=== PATIENT | female | born 1950 | race Caucasian/White ===

== ENCOUNTER 2017-09-05 13:23 | Emergency (ER) | payer OTHER, SELFPAY ==
[2017-09-05 13:55] LABS: #Basophils 0.1 thou/uL (0.0-0.2); #Eosinphils 0.4 thou/uL (0.0-0.7); #Lymphocytes 2.4 thou/uL (1.20-3.40); #Monocytes 0.8 thou/uL (0.11-0.59); #Neutrophils 6.5 thou/uL (1.40-6.50); %Basophils 0.8 % (0.0-1.0); %Eosinophils 4.2 % (0.0-10.0); %Lymphocytes 23.7 % (21.0-51.0); %Monocytes 7.6 % (0.0-10.0); %Neutrophils 63.7 % (42.0-75.0); Hemoglobin 13.5 g/dL (12.0-16.0); Mean Corpuscular Hemoglobin 29.2 pg (27.0-31.0); Mean Corpuscular Volume 83.5 fl (81.0-99.0); Mean Platelet Volume 7.8 fL (7.4-10.4); Platelet Count 293 thou/uL (130-400); RBC Distribution Width 13.1 % (11.5-14.5); Red Blood Cell (RBC) Count 4.63 mill/uL (4.20-5.40); White Blood Cell (WBC) Count 10.2 thou/uL (4.8-10.8)
[2017-09-05 14:02] LABS: INR-International Normal Ratio 1.1; PTT 29.2 SEC (22.9-36.1); Prothrombin Time 14.3 SEC (12.0-14.7)
[2017-09-05 14:17] LABS: ALT (SGPT) 11 U/L (8-55); AST (SGOT) 17 U/L (5-34); Alkaline Phosphatase 87 U/L (40-150); Anion Gap 15 mmol/L (10-20); BUN (Urea Nitrogen) 17 mg/dL (9.8-20.1); Bilirubin, Total 0.4 mg/dL (0.2-1.2); CK (CPK) 49 U/L (29-168); Calc. Creatinine Clearance 0 mL/min (70-130); Calcium 9.6 mg/dL (7.8-10.44); Carbon Dioxide 25 mmol/L (23-31); Chloride 102 mmol/L (98-107); Estimated GFR-MDRD 65; Globulin 3.5 g/dL (2.4-3.5); Glucose 100 mg/dL (80-115); Potassium 3.9 mmol/L (3.5-5.1); Protein, Total 7.5 g/dL (6.0-8.3); Sodium 138 mmol/L (136-145)
[2017-09-05 14:22] LABS: CKMB 0.6 ng/mL (0-6.6); Troponin I Less than 0.010 ng/mL (< 0.028)
--- NOTE | 2017-09-05 14:35 | RAD ---
CHEST ONE VIEW: History: Chest pain Comparison: 02-29-16 FINDINGS: There is a left basilar round opacity may reflect a sliding hernia. No pneumothorax. No effusion. Car diac silhouette and mediastinal contours are similar to the comparison exam. IMPRESSION: Left retrocardiac density may reflect a sliding hiatal hernia. This is similar to the comparison exam ination from 2015 and is not likely felt to be infectious in nature. Follow up two views of the chest may be beneficial. POS: [facility]
== END 2017-09-05 15:43 | disposition home or self-care (01) ==
LOC: ERS 13:23
DX: I48.91 Unspecified atrial fibrillation (principal); I10 Essential (primary) hypertension; E03.9 Hypothyroidism, unspecified; I25.10 Atherosclerotic heart disease of native coronary artery without angina pectoris; Z79.899 Other long term (current) drug therapy; Z79.82 Long term (current) use of aspirin
CPT/HCPCS: 36415; 71045; 80053; 82550; 82553; 83880; 84443; 84484; 85025; 85610; 85730; 93005

== ENCOUNTER 2017-09-10 07:23 | Emergency (ER) | payer SELFPAY ==
[2017-09-10 08:12] LABS: #Basophils 0.1 thou/uL (0.0-0.2); #Eosinphils 0.2 thou/uL (0.0-0.7); #Lymphocytes 1.7 thou/uL (1.20-3.40); #Monocytes 0.5 thou/uL (0.11-0.59); #Neutrophils 5.4 thou/uL (1.40-6.50); %Basophils 0.8 % (0.0-1.0); %Eosinophils 2.6 % (0.0-10.0); %Monocytes 6.1 % (0.0-10.0); %Neutrophils 68.6 % (42.0-75.0); Hemoglobin 13.7 g/dL (12.0-16.0); Mean Corpuscular HGB CONC 33.7 g/dL (32.0-36.0); Mean Corpuscular Hemoglobin 28.1 pg (27.0-31.0); Mean Corpuscular Volume 83.2 fl (81.0-99.0); Mean Platelet Volume 8.3 fL (7.4-10.4); Platelet Count 289 thou/uL (130-400); RBC Distribution Width 13.4 % (11.5-14.5); Red Blood Cell (RBC) Count 4.86 mill/uL (4.20-5.40); White Blood Cell (WBC) Count 7.8 thou/uL (4.8-10.8)
[2017-09-10 08:32] LABS: ALT (SGPT) 18 U/L (8-55); AST (SGOT) 22 U/L (5-34); Albumin 4.2 g/dL (3.4-4.8); Alkaline Phosphatase 75 U/L (40-150); Anion Gap 13 mmol/L (10-20); BUN (Urea Nitrogen) 19 mg/dL (9.8-20.1); Bilirubin, Total 0.8 mg/dL (0.2-1.2); Calc. Creatinine Clearance 0 mL/min (70-130); Calcium 9.5 mg/dL (7.8-10.44); Carbon Dioxide 26 mmol/L (23-31); Chloride 103 mmol/L (98-107); Estimated GFR-MDRD 61; Globulin 3.7 g/dL (2.4-3.5); Glucose 104 mg/dL (80-115); Potassium 3.8 mmol/L (3.5-5.1); Protein, Total 7.9 g/dL (6.0-8.3); Sodium 138 mmol/L (136-145)
--- NOTE | 2017-09-10 08:43 | RAD ---
AP CHEST: History: Generalized malaise and restlessness. Comparison: 09-05-17, 07-01-15 FINDINGS: Double density is seen involving the retrocardiac region is unchanged. Right lung is clear. Mild card iomegaly is stable. Vascular calcification of the aorta arch is similar. Osseous structures are uncha nged. IMPRESSION: Persistent left basilar retrocardiac density suspicious for a sliding hernia. Two view chest radiogra ph may be helpful to confirm this. No additional acute abnormality noted. There is stable cardiomegal y. POS: [facility]
[2017-09-10 08:46] LABS: CKMB 0.9 ng/mL (0-6.6); Troponin I Less than 0.010 ng/mL (< 0.028)
[2017-09-10 09:37] LABS: Bilirubin Negative (Negative); Blood, Urine Negative (Negative); Clarity CLEAR (Clear); Glucose, Urine (Dipstick) Negative (Negative); Leukocyte Negative (Negative); Nitrite Negative (Negative); Protein, Urine (Dipstick) Negative (Neg-Trace); Urobilinogen 0.2 mg/dL (0.2-1.0)
== END 2017-09-10 10:30 | disposition home or self-care (01) ==
LOC: ERS 07:23
DX: R53.1 Weakness (principal); K02.9 Dental caries, unspecified; E03.9 Hypothyroidism, unspecified; I10 Essential (primary) hypertension; I25.10 Atherosclerotic heart disease of native coronary artery without angina pectoris; I48.91 Unspecified atrial fibrillation; Z79.899 Other long term (current) drug therapy
CPT/HCPCS: 71045; 80053; 81003; 82553; 83880; 84484; 85025; 93005

== ENCOUNTER 2017-09-26 01:54 | Emergency (ER) | payer SELFPAY ==
[2017-09-26 02:40] LABS: #Basophils 0.1 thou/uL (0.0-0.2); #Eosinphils 0.4 thou/uL (0.0-0.7); #Lymphocytes 1.7 thou/uL (1.20-3.40); #Monocytes 0.7 thou/uL (0.11-0.59); #Neutrophils 6.4 thou/uL (1.40-6.50); %Basophils 0.9 % (0.0-1.0); %Lymphocytes 18.4 % (21.0-51.0); %Monocytes 7.8 % (0.0-10.0); %Neutrophils 68.9 % (42.0-75.0); Hemoglobin 12.8 g/dL (12.0-16.0); Mean Corpuscular HGB CONC 33.8 g/dL (32.0-36.0); Mean Corpuscular Hemoglobin 28.2 pg (27.0-31.0); Mean Corpuscular Volume 83.3 fl (81.0-99.0); Mean Platelet Volume 8.2 fL (7.4-10.4); Platelet Count 243 thou/uL (130-400); RBC Distribution Width 13.4 % (11.5-14.5); Red Blood Cell (RBC) Count 4.55 mill/uL (4.20-5.40); White Blood Cell (WBC) Count 9.3 thou/uL (4.8-10.8)
[2017-09-26] MEDS ORDERED: cloNIDine 0.1 MG TAB ONE (02:54)
[2017-09-26 03:01] LABS: ALT (SGPT) 11 U/L (8-55); AST (SGOT) 15 U/L (5-34); Albumin 3.9 g/dL (3.4-4.8); Alkaline Phosphatase 71 U/L (40-150); Anion Gap 10 mmol/L (10-20); BUN (Urea Nitrogen) 19 mg/dL (9.8-20.1); Bilirubin, Total 0.5 mg/dL (0.2-1.2); Calc. Creatinine Clearance 0 mL/min (70-130); Calcium 9.4 mg/dL (7.8-10.44); Carbon Dioxide 26 mmol/L (23-31); Chloride 106 mmol/L (98-107); Estimated GFR-MDRD 70; Globulin 3.1 g/dL (2.4-3.5); Glucose 105 mg/dL (80-115); Potassium 3.4 mmol/L (3.5-5.1); Sodium 139 mmol/L (136-145)
--- NOTE | 2017-09-28 16:00 | EKG ---
Test Reason : Blood Pressure : / mmHG Vent. Rate : 063 BPM Atrial Rate : 063 BPM P-R Int : 200 ms QRS Dur : 090 ms QT Int : 424 ms P-R-T Axes : 005 -09 -11 degrees QTc Int : 433 ms Normal sinus rhythm Minimal voltage criteria for LVH, may be normal variant Borderline ECG Confirmed by SARANYA BACK ([id number]), news videotape editor YURIDIA MAHAJAN ([id number]) on 09/28/2017 4:00:28 PM Referred By: Confirmed By:SARANYA BACK
== END 2017-09-26 03:40 | disposition home or self-care (01) ==
LOC: ERS 01:54
DX: I10 Essential (primary) hypertension (principal); E03.9 Hypothyroidism, unspecified; I25.10 Atherosclerotic heart disease of native coronary artery without angina pectoris; Z79.899 Other long term (current) drug therapy
CPT/HCPCS: 36415; 80053; 85025; 93005

== ENCOUNTER 2017-10-01 00:24 | Emergency (ER) | payer SELFPAY | END 2017-10-01 01:29 | disposition left against medical advice (07) | LOC: ERS 00:24 | DX: Z53.21 Procedure and treatment not carried out due to patient leaving prior to being seen by health care provider (principal) | CPT/HCPCS: 93005 ==

== ENCOUNTER 2017-10-16 22:33 | Observation (INO) | payer SELFPAY ==
[2017-10-16] MEDS ORDERED: hydrALAZINE 20 MG/ML VIAL ONE (22:46)
[2017-10-16] MEDS ORDERED: Nitroglycerin 2% Ointment 1 INCH/1 GM Packet ONE (22:46)
[2017-10-16 23:08] LABS: #Basophils 0.1 thou/uL (0.0-0.2); #Eosinphils 0.3 thou/uL (0.0-0.7); #Lymphocytes 2.3 thou/uL (1.20-3.40); #Monocytes 0.7 thou/uL (0.11-0.59); #Neutrophils 5.8 thou/uL (1.40-6.50); %Basophils 0.7 % (0.0-1.0); %Eosinophils 3.5 % (0.0-10.0); %Lymphocytes 25.2 % (21.0-51.0); %Monocytes 7.5 % (0.0-10.0); %Neutrophils 63.1 % (42.0-75.0); Hemoglobin 13.5 g/dL (12.0-16.0); Mean Corpuscular Hemoglobin 27.9 pg (27.0-31.0); Mean Corpuscular Volume 84.6 fl (81.0-99.0); Mean Platelet Volume 8.9 fL (7.4-10.4); Platelet Count 240 thou/uL (130-400); RBC Distribution Width 13.5 % (11.5-14.5); Red Blood Cell (RBC) Count 4.84 mill/uL (4.20-5.40); White Blood Cell (WBC) Count 9.3 thou/uL (4.8-10.8)
[2017-10-16 23:14] LABS: INR-International Normal Ratio 1.1; PTT 32.9 SEC (22.9-36.1); Prothrombin Time 14.4 SEC (12.0-14.7)
--- NOTE | 2017-10-16 23:16 | CT ---
HEAD CT WITHOUT CONTRAST: 10/16/17 HISTORY: Dizziness, hypertension. COMPARISON: None. TECHNIQUE: Noncontrast head CT is performed from skull base to skull vertex. FINDINGS: No parenchymal hemorrhage. No extra-axial hematoma. No midline shift. Basilar cisterns are patent. Br ain volume is age appropriate. Cortical hernandez-white matter differentiation is preserved. The ventricles and sulci are patent and symmetric. Minimal white matter hypodensities due to chronic small vessel ischemic change. The calvarium is intact. Adequate aeration of the sinuses and mastoid air cells. IMPRESSION: No acute intracranial process. POS: [facility]
[2017-10-16 23:27] LABS: ALT (SGPT) 12 U/L (8-55); AST (SGOT) 20 U/L (5-34); Albumin 4.3 g/dL (3.4-4.8); Alkaline Phosphatase 80 U/L (40-150); Anion Gap 12 mmol/L (10-20); BUN (Urea Nitrogen) 14 mg/dL (9.8-20.1); Bilirubin, Total 0.5 mg/dL (0.2-1.2); CK (CPK) 67 U/L (29-168); Calc. Creatinine Clearance 0 mL/min (70-130); Calcium 10.1 mg/dL (7.8-10.44); Carbon Dioxide 27 mmol/L (23-31); Chloride 106 mmol/L (98-107); Estimated GFR-MDRD 42; Globulin 3.3 g/dL (2.4-3.5); Glucose 98 mg/dL (80-115); Potassium 3.6 mmol/L (3.5-5.1); Protein, Total 7.6 g/dL (6.0-8.3); Sodium 141 mmol/L (136-145)
[2017-10-16] MEDS ORDERED: Lorazepam 2 MG/ML VIAL ONE (23:29)
[2017-10-16 23:30] LABS: CKMB 0.7 ng/mL (0-6.6); Troponin I Less than 0.010 ng/mL (< 0.028)
[2017-10-17] MEDS ORDERED: hydrALAZINE 20 MG/ML VIAL SLOW IVP PRN (01:11)
[2017-10-17] MEDS ORDERED: Ondansetron ODT 4 MG TAB SL PRN (01:12)
[2017-10-17] MEDS ORDERED: Acetaminophen 325 MG TAB PO PRN (01:12)
[2017-10-17] MEDS ORDERED: Ondansetron HCl/PF 4 MG/2 ML Vial IVP PRN (01:12)
[2017-10-17 01:50] VITALS: BMI 37.0
--- NOTE | 2017-10-17 02:00 | PDOC.FPRHP ---
- History of Present Illness Chief Complaint: high BP History of Present Illness: Patients states she was "feeling really good" today but then checked her blood pressure and noted it to be in the 180s systolic. This scared her and so she decided to lie down, a family member then stressed her out. She then re-checked her BP and noted it to still be in the 180s so she decided to come in for evaluation. Upon questioning she states she had occassional dizziness today but no other symptoms. No chest pain, shortness of breath, N/V/D. ED Course: Patient's BP in the ED was 223/ 106. Was given hydralazine, ativan, and nitro patch which improved the BP. CT head negative - Allergies/Adverse Reactions Allergies Allergy/AdvReac Type Severity Reaction Status Date / Time adhesive tape Allergy Verified 10/17/17 01:33 latex Allergy Verified 10/17/17 01:33 - Home Medications Medication Instructions Recorded Confirmed Type Flecainide [Tambocor] 75 mg PO BID 05/15/14 10/17/17 History Lisinopril/Hydrochlorothiazide 1 tab PO BID 05/15/14 10/17/17 History [Prinizide] Potassium Gluconate 99 mg PO DAILY 05/15/14 10/17/17 History Pravastatin Sodium [Pravachol] 40 mg PO HS 05/15/14 10/17/17 History Carvedilol [Coreg] 25 mg PO BID 02/29/16 10/17/17 History Thyroid,Pork [Nature-Throid] 105 mg PO QAM 02/29/16 10/17/17 History Apixaban [Eliquis] 5 mg PO BID 10/17/17 10/17/17 History Cholecalciferol (Vitamin D3) 8,000 units PO DAILY 10/17/17 10/17/17 History [[id number]] Cyanocobalamin (Vitamin B-12) 5,000 mcg PO DAILY 10/17/17 10/17/17 History [Vitamin B-12] - History PMHx: HTN, CAD, A fib s/p ablation PSHx: tubal ligation, ablation FHx: [place] in mom and dad in their 70s Social: smoked for 1 year in her 30s, no alcohol or drugs - Review of Systems General: denies: fever/chills, fatigue ENT: denies: nasal congestion, rhinorrhea Respiratory: denies: cough, shortness of breath Cardiovascular: denies: chest pain, palpitation, orthopnea Gastrointestinal: denies: nausea, vomiting, diarrhea Genitourinary: denies: incontinence, dysuria Skin: denies: rashes Neurological: denies: numbness, weakness - Vital signs BP: 223/106 HR: 60 RR: 24 Tmax: 98.0 Pox: 98% on RA Wt: 107kg - Physical Exam Constitutional: NAD, awake, alert and oriented HEENT: normocephalic and atraumatic, PERRLA Neck: supple Heart: RRR, normal S1/S2, pulses present, no edema Lungs: CTAB, no respiratory distress, good air movement Abdomen: soft, non-tender, bowel sounds present Musculoskeletal: normal structure, ROM grossly normal Neurological: no focal deficit Skin: no rash/lesions, capillary refill <2 seconds Psychiatric: normal mood and affect FMR H&P: Results - Labs Result Diagrams: 10/17/17 05:47 10/17/17 05:47 Lab results: WBC 9.3 thou/uL (4.8-10.8) 10/16/17 22:56 Hgb 13.5 g/dL (12.0-16.0) 10/16/17 22:56 Hct 40.9 % (36.0-47.0) 10/16/17 22:56 MCV 84.6 fl (81.0-99.0) 10/16/17 22:56 Plt Count 240 thou/uL (130-400) 10/16/17 22:56 Neutrophils % 63.1 % (42.0-75.0) 10/16/17 22:56 Sodium 141 mmol/L (136-145) 10/16/17 22:56 Potassium 3.6 mmol/L (3.5-5.1) 10/16/17 22:56 Chloride 106 mmol/L (98-107) 10/16/17 22:56 Carbon Dioxide 27 mmol/L (23-31) 10/16/17 22:56 BUN 14 mg/dL (9.8-20.1) 10/16/17 22:56 Creatinine 1.27 mg/dL (0.6-1.1) H 10/16/17 22:56 Glucose 98 mg/dL (80-115) 10/16/17 22:56 Calcium 10.1 mg/dL (7.8-10.44) 10/16/17 22:56 Total Bilirubin 0.5 mg/dL (0.2-1.2) 10/16/17 22:56 AST 20 U/L (5-34) 10/16/17 22:56 ALT 12 U/L (8-55) 10/16/17 22:56 Alkaline Phosphatase 80 U/L (40-150) 10/16/17 22:56 Creatine Kinase 67 U/L (29-168) 10/16/17 22:56 CK-MB (CK-2) 0.7 ng/mL (0-6.6) 10/16/17 22:56 Serum Total Protein 7.6 g/dL (6.0-8.3) 10/16/17 22:56 Albumin 4.3 g/dL (3.4-4.8) 10/16/17 22:56 FMR H&P: A/P - Problem List (1) HTN (hypertension) Status: Acute Code(s): I10 - ESSENTIAL (PRIMARY) HYPERTENSION Qualifiers: Hypertension type: essential hypertension Qualified Code(s): I10 - Essential (primary) hypertension Comment: Stable (2) Palpitations Status: Acute Code(s): R00.2 - PALPITATIONS Comment: No ectopy noted on telemetry - Plan # Hypertensive Urgency - restart home meds - Hydralazine PRN - EKG, trop WNL - CT head negative - monitor for light-headedness, weakness # Hx A fib - home eliquis - held flecanide - coreg # HLD - statin Dispo: < 48 hours FMR H&P: Upper Level - Pertinent history 66 yo F with PMH of HTN, chronic A fib presenting after noting her BP to be elevated at home. States she took all of her normal home BP medications today. Checked her BP a few times at home and noted it kept increasing, stating that her family was making her more anxious. Denies any CP, SOB, dizziness, WILSON, N/V , F/Ch, headaches, vision changes. - Pertinent findings PE: T: 97.6 P: 73 BP: 139/78 RR: 16 93% on RA Gen: [place] female in NAD HEENT: PERRL, EOMI, MMM, no lymphadenopathy or thyromegaly CV: RRR no murmurs, distal pulses intact Pulm: CTAB, no wheezes or rhonchi Abd: soft, NT/ND, BS present, no masses or distention Ext: no cyanosis or edema MSK: VILLEGAS well, no joint or muscle pain or swelling Neuro: CN 2-12 intact, normal sensation Skin: no rashes or lesions Psych: A&O x3, appropriate in conversation - Plan Date/Time: 10/17/17 0200 66 yo F here with elevated BP. 1) Hypertensive urgency: Observe on tele. BP normalized by time of my interview and exam, asymptomatic currently. Resume all home BP meds. 2) Chronic A. fib: Continue eliquis and BB, rate controlled currently. I, [Iván Diaz], have evaluated this patient and agree with findings/plan as outlined by technology internship resident. Pertinent changes/additions are listed here. Attending Addendum - Attending Addendum Date/Time: 10/17/17 1025 I personally evaluated the patient and discussed the management with Dr. Romeo. I agree with the History, Examination, Assessment and Plan documented above with any addition or exceptions noted below. The patient presented with hypertensive urgency. BP improved with hydralazine and restarting home meds. She is feeling much better and noted that her stress and anxiety contributed to elevated bp's. Will discharge home to follow-up with PCP.
[2017-10-17 06:16] LABS: #Basophils 0.1 thou/uL (0.0-0.2); #Eosinphils 0.3 thou/uL (0.0-0.7); #Lymphocytes 2.2 thou/uL (1.20-3.40); #Monocytes 0.7 thou/uL (0.11-0.59); #Neutrophils 5.8 thou/uL (1.40-6.50); %Basophils 0.9 % (0.0-1.0); %Eosinophils 3.1 % (0.0-10.0); %Lymphocytes 24.6 % (21.0-51.0); %Monocytes 7.4 % (0.0-10.0); Hemoglobin 13.1 g/dL (12.0-16.0); Mean Corpuscular Hemoglobin 27.5 pg (27.0-31.0); Mean Corpuscular Volume 83.5 fl (81.0-99.0); Mean Platelet Volume 8.8 fL (7.4-10.4); Platelet Count 247 thou/uL (130-400); RBC Distribution Width 13.5 % (11.5-14.5); Red Blood Cell (RBC) Count 4.75 mill/uL (4.20-5.40)
[2017-10-17 06:34] LABS: Anion Gap 13 mmol/L (10-20); BUN (Urea Nitrogen) 14 mg/dL (9.8-20.1); Calc. Creatinine Clearance 113 mL/min (70-130); Calcium 9.9 mg/dL (7.8-10.44); Carbon Dioxide 23 mmol/L (23-31); Chloride 107 mmol/L (98-107); Estimated GFR-MDRD 67; Glucose 97 mg/dL (80-115); Potassium 3.4 mmol/L (3.5-5.1); Sodium 140 mmol/L (136-145)
[2017-10-17] MEDS ORDERED: Carvedilol 25 MG TAB PO SCH (08:00)
[2017-10-17] MEDS ORDERED: Lisinopril/Hydrochlorothiazide 20 mg/12.5 mg Tablet PO SCH (09:00)
[2017-10-17] MEDS ORDERED: HYDROCHLOROTHIAZIDE PO SCH (09:00)
[2017-10-17] MEDS ORDERED: LISINOPRIL PO SCH (09:00)
[2017-10-17] MEDS ORDERED: Apixaban 5 MG TAB PO SCH (09:00)
[2017-10-17 11:55] VITALS: BP 132/61; TEMP 99.3
[2017-10-17] MEDS ORDERED: Pravastatin Sodium 40 MG TAB PO SCH (21:00)
== END 2017-10-17 12:17 | disposition home or self-care (01) ==
LOC: ERS 22:33 → 2SW 23:30
PROVIDERS: ADMIT Student in an Organized Health Care Education/Training Program; ATTEND Student in an Organized Health Care Education/Training Program
DX: I16.0 Hypertensive urgency (principal); I10 Essential (primary) hypertension; I25.10 Atherosclerotic heart disease of native coronary artery without angina pectoris; E78.5 Hyperlipidemia, unspecified; I48.2 Chronic atrial fibrillation; Z87.891 Personal history of nicotine dependence; Z79.01 Long term (current) use of anticoagulants; Z79.899 Other long term (current) drug therapy; Z91.040 Latex allergy status; Z91.048 Other nonmedicinal substance allergy status; Z98.890 Other specified postprocedural states
CPT/HCPCS: 36415; 70450; 80048; 80053; 82550; 82553; 84484; 85025; 85610; 85730; 93005; 96374; 96375; G0378; J0360; J2060; Q0162

== ENCOUNTER 2017-10-27 00:58 | Emergency (ER) | payer SELFPAY | END 2017-10-27 02:52 | disposition home or self-care (01) | LOC: ERS 00:58 | DX: I10 Essential (primary) hypertension (principal); E03.9 Hypothyroidism, unspecified; I25.10 Atherosclerotic heart disease of native coronary artery without angina pectoris; I48.91 Unspecified atrial fibrillation; Z87.891 Personal history of nicotine dependence; Z79.899 Other long term (current) drug therapy | CPT/HCPCS: 93005 ==

== ENCOUNTER 2017-10-30 22:34 | Emergency (ER) | payer SELFPAY | END 2017-10-30 22:46 | disposition left against medical advice (07) | LOC: ERS 22:34 | DX: Z53.21 Procedure and treatment not carried out due to patient leaving prior to being seen by health care provider (principal) ==

== ENCOUNTER 2018-01-20 21:54 | Emergency (ER) | payer MEDICARE, OTHER ==
[2018-01-20] MEDS ORDERED: Ondansetron HCl/PF 4 MG/2 ML Vial ONE (22:38)
[2018-01-20 23:24] LABS: #Eosinphils 0.3 thou/uL (0.0-0.7); #Lymphocytes 2.1 thou/uL (1.20-3.40); #Monocytes 0.8 thou/uL (0.11-0.59); %Basophils 0.4 % (0.0-1.0); %Eosinophils 3.1 % (0.0-10.0); %Lymphocytes 18.2 % (21.0-51.0); %Monocytes 6.9 % (0.0-10.0); %Neutrophils 71.4 % (42.0-75.0); Hemoglobin 13.4 g/dL (12.0-16.0); Mean Corpuscular HGB CONC 32.9 g/dL (32.0-36.0); Mean Corpuscular Hemoglobin 27.9 pg (27.0-31.0); Mean Corpuscular Volume 84.7 fL (78.0-98.0); Mean Platelet Volume 9.2 fL (7.4-10.4); Platelet Count 287 thou/uL (130-400); RBC Distribution Width 14.1 % (11.5-14.5); Red Blood Cell (RBC) Count 4.83 mill/uL (4.20-5.40); White Blood Cell (WBC) Count 11.2 thou/uL (4.8-10.8)
[2018-01-20 23:26] LABS: Bilirubin Negative (Negative); Blood, Urine Negative (Negative); Clarity CLEAR (Clear); Glucose, Urine (Dipstick) Negative (Negative); Leukocyte Trace (Negative); Nitrite Negative (Negative); Protein, Urine (Dipstick) Negative (Neg-Trace); Specific Gravity, Urine 1.005 (1.002-1.036); Urobilinogen 0.2 mg/dL (0.2-1.0); pH, Urine 7.5 (5.0-9.0)
[2018-01-20 23:27] LABS: Bacteria/HPF None Seen HPF (None Seen); Hyaline Casts/LPF 0-3 HYALINE CAST LPF (0-3 Hyaline); Pathc Cast-AUWi Flag 0.14 (0-2.49); RBC/HPF 0-3 HPF (0-3); Squamous Epithelial None Seen HPF (0-3); WBC/HPF 0-3 HPF (0-3)
[2018-01-20 23:44] LABS: ALT (SGPT) 11 U/L (8-55); AST (SGOT) 18 U/L (5-34); Albumin 4.2 g/dL (3.4-4.8); Alkaline Phosphatase 96 U/L (40-150); Anion Gap 12 mmol/L (10-20); BUN (Urea Nitrogen) 14 mg/dL (9.8-20.1); Bilirubin, Total 0.5 mg/dL (0.2-1.2); Calc. Creatinine Clearance 0 mL/min (70-130); Calcium 9.9 mg/dL (7.8-10.44); Carbon Dioxide 27 mmol/L (23-31); Chloride 104 mmol/L (98-107); Estimated GFR-MDRD 68; Globulin 3.5 g/dL (2.4-3.5); Glucose 107 mg/dL (80-115); Lipase 16 U/L (8-78); Potassium 3.5 mmol/L (3.5-5.1); Protein, Total 7.7 g/dL (6.0-8.3); Sodium 139 mmol/L (136-145)
[2018-01-20 23:49] LABS: CKMB 0.7 ng/mL (0-6.6); Troponin I Less than 0.010 ng/mL (< 0.028)
[2018-01-20] MEDS ORDERED: Meclizine HCl 25 MG TAB ONE (23:54)
--- NOTE | 2018-01-21 11:30 | CT ---
PRELIMINARY REPORT/[facility]/EMERGENTY AFTER-HOURS PROCEDURE CT Head Without Intravenous Contrast EXAM DATE/TIME: 01/20/2018 11:58 PM CLINICAL HISTORY: 67 years old, female; Signs and symptoms; Dizziness; Patient HX: Er 7; F67 reports to ed C/O dizzines s, with no WILSON, around 2100. Feels nauseas upon movement. BP meds and blood thinners. Denies cough, bl ack/bloody stools. HX hptn, heart ablation, fmhx heart problems. Nkda. TECHNIQUE: Axial computed tomography images of the head/brain without intravenous contrast. COMPARISON: No relevant prior studies available. FINDINGS: Brain: There is age-related diffuse cerebral and cerebellar volume loss and chronic microvascular isc hemic disease. Ventricles: Normal. No ventriculomegaly. Bones/joints: Normal. No acute fracture. Sinuses: Normal as visualized. No acute sinusitis. Mastoid air cells: Normal as visualized. No mastoid effusion. Soft tissues: Normal. IMPRESSION: 1. There is age-related diffuse cerebral and cerebellar volume loss and chronic microvascular ischemi c disease. 2. No acute intracranial pathology. Thank you for allowing us to participate in the care of your patient. Dictated and Authenticated by: César Wolff MD 01/21/2018 12:35 AM Central Time ([place] & [place]) HEAD CT WITHOUT CONTRAST: History: Vertigo. Dizziness. Comparison: 10-16-17 FINDINGS: This report is in agreement with the preliminary report by [facility]. Limited evaluation due to motion degr adation. No acute intracranial process. Age appropriate volume loss and chronic small vessel ischemic changes. POS: [facility]
== END 2018-01-21 01:13 | disposition home or self-care (01) ==
LOC: ERS 21:54
DX: R42 Dizziness and giddiness (principal); E03.9 Hypothyroidism, unspecified; I10 Essential (primary) hypertension; I25.10 Atherosclerotic heart disease of native coronary artery without angina pectoris; Z87.891 Personal history of nicotine dependence; Z79.899 Other long term (current) drug therapy
CPT/HCPCS: 70450; 80053; 81003; 81015; 82553; 83605; 83690; 84484; 85025; 93005; 96361; 96374; J2405

== ENCOUNTER 2018-08-16 20:28 | Emergency (ER) | payer MEDICARE, OTHER ==
[2018-08-16 20:51] LABS: #Basophils 0.1 thou/uL (0.0-0.2); #Eosinphils 0.3 thou/uL (0.0-0.7); #Lymphocytes 2.4 thou/uL (1.20-3.40); #Monocytes 0.7 thou/uL (0.11-0.59); #Neutrophils 6.9 thou/uL (1.40-6.50); %Basophils 0.9 % (0.0-1.0); %Monocytes 6.7 % (0.0-10.0); %Neutrophils 66.4 % (42.0-75.0); Mean Corpuscular HGB CONC 32.4 g/dL (32.0-36.0); Mean Corpuscular Hemoglobin 29.1 pg (27.0-31.0); Mean Corpuscular Volume 89.8 fL (78.0-98.0); Mean Platelet Volume 8.6 fL (7.4-10.4); Platelet Count 270 thou/uL (130-400); RBC Distribution Width 13.2 % (11.5-14.5); Red Blood Cell (RBC) Count 4.48 mill/uL (4.20-5.40); White Blood Cell (WBC) Count 10.4 thou/uL (4.8-10.8)
--- NOTE | 2018-08-16 21:04 | RAD ---
FRadiograph chest one view: 08/16/2018 at 8:48 PM HISTORY: 67-year-old female with chest pain and palpitations COMPARISON: 09/10/2017 FINDINGS: Moderately large retrocardiac mass centered to the left of midline. No pulmonary edema, focal infiltr ate, or pneumothorax. Lateral costophrenic angles are sharp. Borderline cardiomegaly. No interval tona nge. IMPRESSION: 1. Large retrocardiac mass may represent moderate to large hiatal hernia. 2. No acute pulmonary findings
[2018-08-16 21:11] LABS: ALT (SGPT) 12 U/L (8-55); AST (SGOT) 16 U/L (5-34); Albumin 4.1 g/dL (3.4-4.8); Alkaline Phosphatase 99 U/L (40-150); Anion Gap 10 mmol/L (10-20); BUN (Urea Nitrogen) 18 mg/dL (9.8-20.1); Bilirubin, Total 0.3 mg/dL (0.2-1.2); CK (CPK) 43 U/L (29-168); Calc. Creatinine Clearance 0 mL/min (70-130); Calcium 9.9 mg/dL (7.8-10.44); Carbon Dioxide 29 mmol/L (23-31); Chloride 105 mmol/L (98-107); Estimated GFR-MDRD 61; Globulin 3.4 g/dL (2.4-3.5); Glucose 120 mg/dL (80-115); Potassium 3.7 mmol/L (3.5-5.1); Protein, Total 7.5 g/dL (6.0-8.3); Sodium 140 mmol/L (136-145)
[2018-08-16] MEDS ORDERED: Ondansetron ODT 4 MG TAB ONE (21:50)
== END 2018-08-16 22:15 | disposition home or self-care (01) ==
LOC: ERS 20:28
DX: R00.2 Palpitations (principal); E03.9 Hypothyroidism, unspecified; I10 Essential (primary) hypertension; I25.10 Atherosclerotic heart disease of native coronary artery without angina pectoris; I48.91 Unspecified atrial fibrillation; Z87.891 Personal history of nicotine dependence; Z79.899 Other long term (current) drug therapy
CPT/HCPCS: 36415; 71045; 80053; 82550; 84484; 85025; 93005; Q0162

== ENCOUNTER 2018-08-20 12:15 | Emergency (ER) | payer MEDICARE, OTHER ==
--- NOTE | 2018-08-20 12:51 | RAD ---
EXAM: Portable chest PROVIDED CLINICAL HISTORY: Chest pain COMPARISON: 08/16/2018 FINDINGS: Cardiac and mediastinal silhouette is unchanged in appearance. No focal consolidation, pleural fluid or pneumothorax evident. IMPRESSION: No evidence for an acute cardiopulmonary process.
[2018-08-20 13:12] LABS: #Basophils 0.1 thou/uL (0.0-0.2); #Eosinphils 0.2 thou/uL (0.0-0.7); #Lymphocytes 2.3 thou/uL (1.20-3.40); #Monocytes 0.7 thou/uL (0.11-0.59); #Neutrophils 6.4 thou/uL (1.40-6.50); %Basophils 0.9 % (0.0-1.0); %Eosinophils 2.2 % (0.0-10.0); %Lymphocytes 23.8 % (21.0-51.0); %Monocytes 7.6 % (0.0-10.0); %Neutrophils 65.6 % (42.0-75.0); Hemoglobin 13.5 g/dL (12.0-16.0); Mean Corpuscular HGB CONC 32.9 g/dL (32.0-36.0); Mean Corpuscular Hemoglobin 28.6 pg (27.0-31.0); Mean Corpuscular Volume 86.7 fL (78.0-98.0); Mean Platelet Volume 8.7 fL (7.4-10.4); Platelet Count 301 thou/uL (130-400); RBC Distribution Width 12.9 % (11.5-14.5); Red Blood Cell (RBC) Count 4.73 mill/uL (4.20-5.40); White Blood Cell (WBC) Count 9.8 thou/uL (4.8-10.8)
[2018-08-20 13:32] LABS: ALT (SGPT) 10 U/L (8-55); AST (SGOT) 17 U/L (5-34); Albumin 4.3 g/dL (3.4-4.8); Alkaline Phosphatase 89 U/L (40-150); Anion Gap 14 mmol/L (10-20); BUN (Urea Nitrogen) 18 mg/dL (9.8-20.1); Bilirubin, Total 0.6 mg/dL (0.2-1.2); CK (CPK) 44 U/L (29-168); Calc. Creatinine Clearance 0 mL/min (70-130); Calcium 9.7 mg/dL (7.8-10.44); Carbon Dioxide 27 mmol/L (23-31); Chloride 103 mmol/L (98-107); Estimated GFR-MDRD 53; Globulin 3.2 g/dL (2.4-3.5); Glucose 91 mg/dL (80-115); Lipase 14 U/L (8-78); Potassium 3.9 mmol/L (3.5-5.1); Protein, Total 7.5 g/dL (6.0-8.3); Sodium 140 mmol/L (136-145)
--- NOTE | 2018-08-23 09:06 | EKG ---
Test Reason : Blood Pressure : / mmHG Vent. Rate : 069 BPM Atrial Rate : 069 BPM P-R Int : 194 ms QRS Dur : 086 ms QT Int : 424 ms P-R-T Axes : 045 -06 001 degrees QTc Int : 454 ms Normal sinus rhythm Normal ECG Confirmed by CHANEL HIGGINBOTHAM D.O. ([id number]), sports editor YURIDIA MAHAJAN ([id number]) on 08/23/2018 9:05:24 AM Referred By: Confirmed By:CHANEL HIGGINBOTHAM D.O.
== END 2018-08-20 15:32 | disposition home or self-care (01) ==
LOC: ERS 12:15
DX: R10.11 Right upper quadrant pain (principal); I25.10 Atherosclerotic heart disease of native coronary artery without angina pectoris; I48.91 Unspecified atrial fibrillation; E03.9 Hypothyroidism, unspecified; I10 Essential (primary) hypertension; Z87.891 Personal history of nicotine dependence; Z79.899 Other long term (current) drug therapy; Z79.01 Long term (current) use of anticoagulants
CPT/HCPCS: 36415; 71045; 80053; 82550; 83690; 84484; 85025; 93005

== ENCOUNTER 2018-09-02 09:51 | Outpatient (CLI) | payer MEDICARE, OTHER ==
--- NOTE | 2018-09-02 10:25 | ULT ---
Gallbladder ultrasound: Multiple grayscale images of right upper quadrant obtained according to protocol. INDICATIONS: Right upper quadrant pain. FINDINGS: Gallbladder has a normal sonographic appearance. No evidence of gallstones. Common bile duct is normal caliber. There is a hyperechoic lesion in the right lobe of liver measuring up to 2.0 cm. Pancreas is mostly obscured but appears unremarkable as visualized. Right kidney is imaged and appears unremarkable. IMPRESSION: 1. Hyperechoic focus in the liver. Possible hemangioma. Recommend CT abdomen with and without contras t following hemangioma protocol for characterization. 2. Unremarkable gallbladder
== END 2018-09-02 09:52 | disposition home or self-care (01) ==
LOC: SCSULT 09:51
PROVIDERS: ATTEND Family Medicine
DX: R10.84 Generalized abdominal pain (principal)
CPT/HCPCS: 76705

== ENCOUNTER 2018-10-03 11:10 | Emergency (ER) | payer MEDICARE, OTHER ==
[2018-10-03 12:24] LABS: #Eosinphils 0.2 thou/uL (0.0-0.7); #Monocytes 0.6 thou/uL (0.11-0.59); #Neutrophils 6.6 thou/uL (1.40-6.50); %Basophils 0.3 % (0.0-1.0); %Eosinophils 2.2 % (0.0-10.0); %Lymphocytes 20.8 % (21.0-51.0); %Monocytes 6.2 % (0.0-10.0); %Neutrophils 70.5 % (42.0-75.0); Hemoglobin 13.9 g/dL (12.0-16.0); Mean Corpuscular HGB CONC 33.7 g/dL (32.0-36.0); Mean Corpuscular Hemoglobin 29.2 pg (27.0-31.0); Mean Corpuscular Volume 86.6 fL (78.0-98.0); Mean Platelet Volume 8.5 fL (7.4-10.4); Platelet Count 269 thou/uL (130-400); RBC Distribution Width 12.7 % (11.5-14.5); Red Blood Cell (RBC) Count 4.77 mill/uL (4.20-5.40); White Blood Cell (WBC) Count 9.4 thou/uL (4.8-10.8)
[2018-10-03 13:00] LABS: ALT (SGPT) 11 U/L (8-55); AST (SGOT) 18 U/L (5-34); Albumin 4.3 g/dL (3.4-4.8); Alkaline Phosphatase 92 U/L (40-150); Anion Gap 13 mmol/L (10-20); BUN (Urea Nitrogen) 13 mg/dL (9.8-20.1); Bilirubin, Total 0.6 mg/dL (0.2-1.2); Calc. Creatinine Clearance 0 mL/min (70-130); Calcium 9.8 mg/dL (7.8-10.44); Carbon Dioxide 27 mmol/L (23-31); Chloride 103 mmol/L (98-107); Estimated GFR-MDRD 61; Globulin 3.5 g/dL (2.4-3.5); Glucose 87 mg/dL (80-115); Lipase 16 U/L (8-78); Magnesium 2.5 mg/dL (1.6-2.6); Potassium 3.7 mmol/L (3.5-5.1); Protein, Total 7.8 g/dL (6.0-8.3); Sodium 139 mmol/L (136-145)
--- NOTE | 2018-10-03 13:02 | RAD ---
CHEST 1 VIEW: HISTORY: Chest pain, right-sided pain for 1 month. COMPARISON: 08/20/2018. FINDINGS: Moderate-sized hiatal hernia. Heart size is borderline enlarged but stable. No confluent pneumonia, overt edema, or pleural effusion. IMPRESSION: Stable borderline-sized heart. Moderate-sized hiatal hernia. No acute intrathoracic disease. POS: [facility]
--- NOTE | 2018-10-03 13:33 | CT ---
CT abdomen and pelvis with IV contrast HISTORY: Abdominal pain. FINDINGS: The lung bases are clear. Calcified granulomata within the spleen are consistent with heale d granulomatous disease. Abdominal fat protrudes through a diaphragmatic hernia just to the left of the distal esophagus. Very small gastroesophageal hernia. Prominent calcification throughout the sunny rial structures. Circumaortic left renal vein. Prominent pelvises of each kidney. Obstruction is not favored. The nondilated, noninflamed appendix contains a small calcification. Urinary bladder is unremarkable. IMPRESSION: Atherosclerosis. No acute abnormalities are demonstrated.
[2018-10-03] MEDS ORDERED: ISOVUE-370 76%-LOCM 1 ML ONE (15:34)
== END 2018-10-03 14:18 | disposition home or self-care (01) ==
LOC: ERS 11:10
DX: R10.11 Right upper quadrant pain (principal); I25.10 Atherosclerotic heart disease of native coronary artery without angina pectoris; I10 Essential (primary) hypertension; I48.91 Unspecified atrial fibrillation; E03.9 Hypothyroidism, unspecified; Z87.891 Personal history of nicotine dependence; Z79.891 Long term (current) use of opiate analgesic; Z79.899 Other long term (current) drug therapy
CPT/HCPCS: 71045; 74177; 80053; 83690; 83735; 84484; 85025; 85379; Q9966

== ENCOUNTER 2018-10-07 08:05 | Outpatient (CLI) | payer MEDICARE, OTHER ==
[2018-10-07] MEDS ORDERED: Iopamidol 370 76% 100 ML VIAL ONE (09:00)
--- NOTE | 2018-10-07 10:48 | CT ---
CT OF ABDOMEN PERFORMED WITH AND WITHOUT CONTRAST ENHANCEMENT: HISTORY: Liver mass noted on ultrasound examination of 09/02/2018. COMPARISON: 09/02/2018 ultrasound examination and 10/03/2018 CT study. FINDINGS: The lung bases are clear. There is a small hiatal hernia present with prominent herniation of fat associated with this. The liver shows a small peripherally enhancing right lobe liver lesion measuring 15 mm in size. The current study per a liver mass protocol. There is no delayed imaging performed; however, this is oleg wing characteristics of a hemangioma. On the portal venous phase, additionally and some filling in a s compared to the arterial phase exam. Given this appearance and the appearance on ultrasound, this has characteristics most suggestive of hemangioma. The spleen, pancreas, and gallbladder regions obed ear unremarkable. Right and left adrenal glands are normal in appearance. Right and left kidneys are normal in size. Extrarenal pelvises are mildly prominent. There is no significant periaortic adenopathy. IMPRESSION: 1. A 15 mm right liver lobe liver mass showing characteristics most suggestive of a hemangioma given the ultrasound and CT findings. 2. Hiatal hernia with prominent fat also herniated in association with the small hernia of the stoma ch. POS: [facility]
== END 2018-10-07 08:06 | disposition home or self-care (01) ==
LOC: SCSCT 08:05
PROVIDERS: ATTEND Family Medicine
DX: R16.0 Hepatomegaly, not elsewhere classified (principal); R93.5 Abnormal findings on diagnostic imaging of other abdominal regions, including retroperitoneum; K44.9 Diaphragmatic hernia without obstruction or gangrene
CPT/HCPCS: 74170; Q9967

== ENCOUNTER 2018-12-01 08:57 | Inpatient (IN) | payer MEDICARE, OTHER ==
[2018-12-01] MEDS ORDERED: Aspirin Chewable 81 MG TAB ONE (09:24)
[2018-12-01] MEDS ORDERED: Lorazepam 2 MG/ML VIAL ONE (09:24)
--- NOTE | 2018-12-01 09:28 | RAD ---
RADIOGRAPH CHEST 1 VIEW: DATE: 12/01/2018 HISTORY: 68-year-old female with chest pain and atrial fibrillation. FINDINGS: The thoracic aorta is tortuous and ectatic. There is no evidence of airspace density, pulmonary edema , or pneumothorax. The lateral costophrenic angles are not effaced. IMPRESSION: 1) No acute pulmonary findings. 2) ectasia of thoracic aorta.
[2018-12-01 09:39] LABS: ALT (SGPT) 9 U/L (8-55); AST (SGOT) 14 U/L (5-34); Albumin 4.1 g/dL (3.4-4.8); Alkaline Phosphatase 83 U/L (40-150); Anion Gap 10 mmol/L (10-20); BUN (Urea Nitrogen) 14 mg/dL (9.8-20.1); Bilirubin, Total 0.6 mg/dL (0.2-1.2); CK (CPK) 43 U/L (29-168); Calc. Creatinine Clearance 0 mL/min (70-130); Calcium 9.7 mg/dL (7.8-10.44); Carbon Dioxide 29 mmol/L (23-31); Chloride 104 mmol/L (98-107); Estimated GFR-MDRD 60; Globulin 3.4 g/dL (2.4-3.5); Glucose 94 mg/dL (80-115); Potassium 3.5 mmol/L (3.5-5.1); Protein, Total 7.5 g/dL (6.0-8.3); Sodium 139 mmol/L (136-145)
[2018-12-01 10:52] LABS: #Basophils 0.1 thou/uL (0.0-0.2); #Eosinphils 0.2 thou/uL (0.0-0.7); #Lymphocytes 1.9 thou/uL (1.20-3.40); #Monocytes 0.6 thou/uL (0.11-0.59); #Neutrophils 4.3 thou/uL (1.40-6.50); %Basophils 0.7 % (0.0-1.0); %Eosinophils 3.3 % (0.0-10.0); %Lymphocytes 26.6 % (21.0-51.0); %Monocytes 8.2 % (0.0-10.0); %Neutrophils 61.2 % (42.0-75.0); Hemoglobin 13.7 g/dL (12.0-16.0); Mean Corpuscular HGB CONC 31.5 g/dL (32.0-36.0); Mean Corpuscular Volume 88.7 fL (78.0-98.0); Platelet Count 280 thou/uL (130-400); RBC Distribution Width 12.9 % (11.5-14.5); Red Blood Cell (RBC) Count 4.89 mill/uL (4.20-5.40); White Blood Cell (WBC) Count 7.1 thou/uL (4.8-10.8)
[2018-12-01 11:15] LABS: Magnesium 2.3 mg/dL (1.6-2.6)
[2018-12-01 12:16] LABS: Bilirubin Negative (Negative); Blood, Urine Negative (Negative); Clarity Clear (Clear); Glucose, Urine (Dipstick) Normal (Negative); Leukocyte 75 Leu/uL (Negative); Nitrite Negative (Negative); Protein, Urine (Dipstick) Negative (Neg-Trace); RBC/HPF 0-3 HPF (0-3); Squamous Epithelial 0-3 HPF (0-3); Urobilinogen Normal mg/dL (Less than 2); WBC/HPF 0-3 HPF (0-3)
[2018-12-01 12:30] LABS: Bacteria/HPF None Seen HPF (None Seen)
[2018-12-01 12:52] LABS: Troponin I Less than 0.010 ng/mL (< 0.028)
[2018-12-01 14:22] VITALS: BMI 35.4
[2018-12-01] MEDS ORDERED: Sodium Chloride 0.9% 1,000 ML IV SCH (15:02)
[2018-12-01] MEDS ORDERED: Ondansetron ODT 4 MG TAB SL PRN (15:02)
[2018-12-01] MEDS ORDERED: Ondansetron PF 4 MG/2 ML Vial IVP PRN (15:02)
[2018-12-01 15:43] LABS: Troponin I Less than 0.010 ng/mL (< 0.028)
--- NOTE | 2018-12-01 16:04 | PDOC.FPRHP ---
- History of Present Illness History of Present Illness: Mrs. Hardwick is a pleasant 68 y/o female with a history of A-Fib, treated with ablation unsuccessfully, HTN, HLD, Hypothyroidism, who presented to the ED with her and daughter after an episode of dizzines and SOB while she was eating breakfast. The patient states that she felt fine when she woke up this morning, but felt like "everything was going black" while she was sitting at the breakfast table. When she initially presented to the ED, her EKG showed sinus bradycardia with rates in the 30s. She was subsequently fluid resuscitated and given a single dose of Ativan for apparent anxiety, which resulted in her heart rate subsequently improving the the 60s, which she states is her baseline. She did not complain of any significant endocrine dysfunction, chest pain, SOB, cough, recent changes in weight, or fevers, chills, or night sweats. The patient's stated that the patient did not have a traumatic fall, nor did she display signs of facial drooping, dysarthria, ataxia or cognitive impairment. EKG in the ER showed sinus bradycardia with marked sinus arrhythmia. - Allergies/Adverse Reactions Allergies Allergy/AdvReac Type Severity Reaction Status Date / Time adhesive tape Allergy Verified 10/17/17 01:33 latex Allergy Verified 10/17/17 01:33 - Home Medications Medication Instructions Recorded Confirmed Type Flecainide [Tambocor] 75 mg PO BID 05/15/14 12/01/18 History Lisinopril/Hydrochlorothiazide 1 tab PO BID 05/15/14 12/01/18 History [Prinizide] Potassium Gluconate 99 mg PO DAILY 05/15/14 12/01/18 History Pravastatin Sodium [Pravachol] 40 mg PO HS 05/15/14 12/01/18 History Carvedilol [Coreg] 6.25 mg PO BID 02/29/16 12/01/18 History Thyroid,Pork [Nature-Throid] 105 mg PO QAM 02/29/16 12/01/18 History Apixaban [Eliquis] 5 mg PO BID 10/17/17 12/01/18 History Cholecalciferol (Vitamin D3) 8,000 units PO DAILY 10/17/17 12/01/18 History [[id number]] Cyanocobalamin (Vitamin B-12) 5,000 mcg PO DAILY 10/17/17 12/01/18 History [Vitamin B-12] - History PMHx: Chronic A fib on Eliquis, HTN, HLD, Hypothyroidism PSHx: tubal ligation, cardiac ablation, tonsillectomy FHx: noncontributory Social: Former smoker, quit 10 years ago, denies drug use and alcohol use - Review of Systems General: reports: fatigue. denies: fever/chills, weight/appetite/sleep changes , night sweats Eyes: denies: vision changes ENT: denies: nasal congestion Respiratory: reports: shortness of breath. denies: cough, congestion, exercise intolerance Cardiovascular: denies: chest pain, palpitation, edema, paroxysmal nocturnal dyspnea, orthopnea Gastrointestinal: denies: nausea, vomiting, diarrhea Genitourinary: denies: dysuria Skin: denies: rashes, lesions Musculoskeletal: denies: pain, tenderness Neurological: reports: weakness, other (Near syncope) - Vital signs BP: [150/62] HR: [58] RR: [15] Tmax: [97.7] Pox: [98]% on [Room Air] Wt: [99 kg] - Physical Exam Constitutional: NAD, awake, alert and oriented, well developed HEENT: normocephalic and atraumatic, PERRLA, EOMI, conjunctiva clear, no scleral icterus, grossly normal vision, grossly normal hearing, normal nasal mucosa, MMM, oropharynx clear, good dention Neck: supple, FROM, trachea midline, no LAD, no JVD, no thyromegaly Chest: no-tender to palpation, no lesions Heart: RRR, normal S1/S2, no murmurs/rubs/gallops, pulses present, no edema Lungs: CTAB, no respiratory distress, good air movement, no rales/rhonchi, other (NIH Score: 0) Abdomen: soft, non-tender, no masses/distention Musculoskeletal: normal structure, normal tone, ROM grossly normal Neurological: no focal deficit, CN II-XII intact, normal sensation, other (- Dysdiadokinesia, -Nose to Finger, -Heel to [place]) Skin: no rash/lesions, no jaundice Heme/Lymphatic: no unusual bruising or bleeding, no petechia, no LAD Psychiatric: normal mood and affect, good judgment and insight, intact recent and remote memory FMR H&P: Results - Labs Result Diagrams: 12/01/18 19:50 12/01/18 19:50 Lab results: WBC 7.1 thou/uL (4.8-10.8) 12/01/18 09:14 Hgb 13.7 g/dL (12.0-16.0) 12/01/18 09:14 Hct 43.4 % (36.0-47.0) 12/01/18 09:14 MCV 88.7 fL (78.0-98.0) 12/01/18 09:14 Plt Count 280 thou/uL (130-400) 12/01/18 09:14 Neutrophils % 61.2 % (42.0-75.0) 12/01/18 09:14 Sodium 139 mmol/L (136-145) 12/01/18 09:14 Potassium 3.5 mmol/L (3.5-5.1) 12/01/18 09:14 Chloride 104 mmol/L (98-107) 12/01/18 09:14 Carbon Dioxide 29 mmol/L (23-31) 12/01/18 09:14 BUN 14 mg/dL (9.8-20.1) 12/01/18 09:14 Creatinine 0.93 mg/dL (0.6-1.1) 12/01/18 09:14 Glucose 94 mg/dL (80-115) 12/01/18 09:14 Calcium 9.7 mg/dL (7.8-10.44) 12/01/18 09:14 Total Bilirubin 0.6 mg/dL (0.2-1.2) 12/01/18 09:14 AST 14 U/L (5-34) 12/01/18 09:14 ALT 9 U/L (8-55) 12/01/18 09:14 Alkaline Phosphatase 83 U/L (40-150) 12/01/18 09:14 Creatine Kinase 43 U/L (29-168) 12/01/18 09:14 B-Natriuretic Peptide 199.9 pg/mL (0-100) H 12/01/18 09:14 Serum Total Protein 7.5 g/dL (6.0-8.3) 12/01/18 09:14 Albumin 4.1 g/dL (3.4-4.8) 12/01/18 09:14 Lipase 17 U/L (8-78) 12/01/18 09:14 Urine Ketones Negative mg/dL (Negative) 12/01/18 12:02 Urine Blood Negative (Negative) 12/01/18 12:02 Urine Nitrite Negative (Negative) 12/01/18 12:02 Ur Leukocyte Esterase 75 Jesus/uL (Negative) A 12/01/18 12:02 Urine RBC 0-3 HPF (0-3) 12/01/18 12:02 Urine WBC 0-3 HPF (0-3) 12/01/18 12:02 Ur Squamous Epith Cells 0-3 HPF (0-3) 12/01/18 12:02 Urine Bacteria None Seen HPF (None Seen) 12/01/18 12:02 - EKG Interpretation EKG: Sinus bradycardia with marked sinus arrhythmia FMR H&P: A/P - Problem List (1) Dizziness Current Visit: Yes Status: Acute Code(s): R42 - DIZZINESS AND GIDDINESS (2) Shortness of breath Current Visit: Yes Status: Acute Code(s): R06.02 - SHORTNESS OF BREATH (3) HTN (hypertension) Current Visit: No Status: Acute Code(s): I10 - ESSENTIAL (PRIMARY) HYPERTENSION Qualifiers: Hypertension type: essential hypertension Qualified Code(s): I10 - Essential (primary) hypertension Comment: Stable (4) Nausea Current Visit: No Status: Acute Code(s): R11.0 - NAUSEA Comment: Resolved (5) Hypothyroidism Current Visit: No Status: Chronic Code(s): E03.9 - HYPOTHYROIDISM, UNSPECIFIED Comment: Continue [place] Thyroid 97.5mg daily - Plan 1. Symptomatic Bradycardia -Admit to Tele-Obs, continuous cardiac monitoring -EKG: Sinus Bradycardia with marked sinus arrhythmia, no evidence of STEMI or Electrolyte Imbalance -Toponin Levels: <0.01 -BNP: 200 -TSH: WNL -Clinically evaluate Fluid / Electrolyte status -Hold Coreg / Flecainamide due to Sinus Bradycardia -Consult Cardiology - Dr. Peterson, appreciate recommendations 2. Hypothyroidism -TSH 0.4 -Continue home meds 3. HTN -Monitor BP -Holding coreg and flecainide -Continue lisinopril 4. HLD -continue home statin VTE PPx: Home Eliquis Diet: HH incl low Na CODE STATUS: FULL CODE Disposition: Monitor on Tele-Obs and consult with Cardiology when available FMR H&P: Upper Level - Plan Date/Time: 12/01/18 1601 I, Lanre Lucero MD, have evaluated this patient and agree with findings/plan as outlined by internet merchant resident. Pertinent changes/edits were made on the H&P. Upper level summary below. Ernestina Hardwick is a 68 year old F with a PMH of Chronic A fib on Eliquis, HTN, HLD, Hypothyroidism who presented to the ED after one episode of dizziness, feeling like she was going to pass out, the morning of admission. Upon arrival to the ED, EKG showed sinus bradycardia with marked arrhythmia. Negative troponins. CXR showd no acute findings, thoracic aortic ectasia. TSH wnl. Patient was given 1 L NS and ativan in the ED and her bradycardia improved. We are admitting the patient to inpatient/tele for symptomatic Bradycardia. Holding coreg and flecainide at this time and we consulted Cardiology. Will continue to monitor closely overnight for any arrhythmias and follow Cardiology recommendations. Addendum - Attending - Attending Attestation Date/Time: 12/01/18 7510 I personally evaluated the patient and discussed the management with Dr. Durbin and team. I agree with the History, Examination, Assessment and Plan documented above with any addition or exceptions noted below.
[2018-12-01] MEDS: Sodium Chloride 0.9% 1,000 ML IV SCH (18:16)
--- NOTE | 2018-12-01 19:05 | CON ---
DATE OF CONSULTATION: 12/01/2018 REASON FOR CONSULTATION: Bradycardia. PRIMARY ASSET PROTECTION PROFESSIONAL: Dr. Marlon Rios. HISTORY OF PRESENT ILLNESS: Ms. Ernestina Hardwick is a very pleasant 68-year-old woman. She has history of atrial fibrillation ablation in the past and is now maintained on carvedilol and flecainide to control the heart rhythm. The patient had episode this morning. She was at home. She was sitting in a chair. She did not feel well. She got up to try to "get away from that feeling," she got progressively lightheaded, but fortunately did not faint. She came to the emergency room and there is a mention that her heart rate was in the high 30s at times, although in the EKGs, it was in the low 50s. The patient was given intravenous fluid and given some Ativan for anxiety, and she began improving and she is feeling well now. MEDICATIONS: 1. Flecainide 50 mg twice a day. 2. Carvedilol 6.25 mg twice a day. 3. Apixaban 5 mg twice a day. 4. Lisinopril and HCT. She had not taken any of her medicines this morning except for the thyroid. The patient did not fall fortunately. REVIEW OF SYSTEMS: CONSTITUTIONAL: No significant weight gain or loss. VISION: No changes. HEARING: No changes. PULMONARY: No cough or wheezing. GASTROINTESTINAL: No nausea, vomiting, or diarrhea. SKIN: No rashes. NEUROLOGIC: No unilateral weakness or numbness. PSYCHIATRIC: No unusual depression or anxiety. She felt anxious during the episode this morning, but when she felt better, the anxiety resolved. ALLERGIES: TO ADHESIVE TAPE AND LATEX. SOCIAL HISTORY: No alcohol or tobacco. PHYSICAL EXAMINATION: GENERAL: This is a delightful 68-year-old woman, in no distress. VITAL SIGNS: Blood pressure 152/73, pulse now is 57 and is sinus. NECK: Veins are normal. Carotid, normal upstrokes. LUNGS: Clear. CARDIAC: Normal S1, normal S2. No murmur, rub, or gallop. ABDOMEN: Soft and nontender. No hepatosplenomegaly. EXTREMITIES: Warm and dry. No clubbing. No cyanosis. There is no edema. PERTINENT LABORATORY DATA: The EKG initially showed sinus bradycardia, now it is still bradycardic with heart rate in the high 50s. Troponin levels were negative. BNP 199.9. Potassium is 3.5. ASSESSMENT: 1. Near syncopal episode related to bradycardia and orthostatic hypotension. 2. History of atrial fibrillation, now with some sinus bradycardia. PLAN: 1. Stop carvedilol. 2. Hold flecainide today. 3. Continue apixaban. 4. Dr. Rios to see tomorrow morning. I told the patient if she continues to have bradycardic episodes, pacemaker could be considered, but for now, the first step would likely be to stop the beta janette. Job ID: [id number]
[2018-12-01] MEDS ORDERED: Acetaminophen 325 MG TAB PO PRN (19:39)
[2018-12-01] MEDS: Acetaminophen 500 MG TAB PO PRN (19:45)
[2018-12-01 20:14] LABS: Eosinophils 3 % (0-10); Hemoglobin 13.3 g/dL (12.0-16.0); Lymphocytes 30 % (21-51); MDiff Complete? YES; Mean Corpuscular HGB CONC 31.7 g/dL (32.0-36.0); Mean Corpuscular Hemoglobin 28.6 pg (27.0-31.0); Mean Corpuscular Volume 90.2 fL (78.0-98.0); Mean Platelet Volume 8.7 fL (7.4-10.4); Monocytes 5 % (0-10); Neutrophil 62 % (42-75); Platelet Count 249 thou/uL (130-400); Platelet Morphology Comment Appears Adequate; Red Blood Cell (RBC) Count 4.65 mill/uL (4.20-5.40); White Blood Cell (WBC) Count 10.2 thou/uL (4.8-10.8)
[2018-12-01 20:23] LABS: BUN (Urea Nitrogen) 12 mg/dL (9.8-20.1); Calc. Creatinine Clearance 112 mL/min (70-130); Calcium 9.4 mg/dL (7.8-10.44); Carbon Dioxide 18 mmol/L (23-31); Chloride 108 mmol/L (98-107); Estimated GFR-MDRD 74; Glucose 105 mg/dL (80-115); Sodium 137 mmol/L (136-145)
[2018-12-01] MEDS ORDERED: HYDROCHLOROTHIAZIDE PO SCH (21:00)
[2018-12-01] MEDS ORDERED: LISINOPRIL PO SCH (21:00)
[2018-12-01] MEDS: Atorvastatin Calcium 10 MG TAB PO SCH (21:19)
[2018-12-01] MEDS: Apixaban 5 MG TAB PO SCH (21:19)
[2018-12-02 02:01] LABS: Anion Gap 15 mmol/L (10-20)
--- NOTE | 2018-12-02 05:49 | PDOC.FM ---
- Subjective Subjective: Mrs. Hardwick is a pleasant 68 y/o female with a history of A-Fib, treated with ablation unsuccessfully, HTN, HLD and Hypothyroidism, who presented to the ED on 12/01 following an episode of dizzines and SOB while she was eating breakfast. The patient states that she felt fine earlier that morning , but felt like "everything was going black" while she was sitting at the breakfast table. The patient's witnessed the event and denied any symptoms worrisome for stroke. She received a fluid bolus and a single dose of Ativan for anxiety in the ED, which resolved her symptoms. Also in the ED, EKG showed sinus bradycardia with rates in the 30s, but subsequent rates during initial evaluation were in the 90s. Per Telemetry staff, the most recent readings demonstrated normal sinus rhythm with rates in 50s-60s. She continues to deny CP, SOB, cough, fevers, chills or night sweats. - Objective Vital Signs & Weight: Vital Signs (12 hours) Temp Pulse Resp BP Pulse Ox 12/01/18 19:45 97.8 F 94 18 150/69 H 93 L Weight Weight 99.7 kg Result Diagrams: 12/01/18 19:50 12/01/18 19:50 EKG Reviewed by me: No (EKD in ED showed Sinus Bradycardia) Radiology Reviewed by me: No (No Acute Findings, Ectasia of Thoracic Aorta) Phys Exam - Physical Examination Constitutional: NAD HEENT: moist MMs, sclera anicteric Neck: supple, full ROM Respiratory: no wheezing, no rales, no rhonchi, clear to auscultation bilateral Cardiovascular: RRR, no significant murmur, no rub Gastrointestinal: soft, non-tender, no distention Musculoskeletal: no edema, pulses present Neurological: non-focal, normal sensation, moves all 4 limbs Psychiatric: normal affect, A&O x 3 Skin: no rash Dx/Plan (1) Dizziness Code(s): R42 - DIZZINESS AND GIDDINESS Status: Acute (2) Shortness of breath Code(s): R06.02 - SHORTNESS OF BREATH Status: Acute (3) HTN (hypertension) Code(s): I10 - ESSENTIAL (PRIMARY) HYPERTENSION Status: Acute Qualifiers: Hypertension type: essential hypertension Qualified Code(s): I10 - Essential (primary) hypertension (4) Nausea Code(s): R11.0 - NAUSEA Status: Acute (5) Hypothyroidism Code(s): E03.9 - HYPOTHYROIDISM, UNSPECIFIED Status: Chronic - Plan Plan: 1. Symptomatic Bradycardia -Day #1 on Telemetry -Normal Sinus Rhythm w/o overnight events, per Tele-Obs staff -EKG in ED: Sinus Bradycardia, w/o evidence of STEMI or Electrolyte Imbalance -BNP: 200 (High) -Toponin Levels: <0.01 (Low) -TSH: WNL -NS IV: 50 ml/hr (Per Cardiology Consult) -Continue to clinically evaluate Fluid / Electrolyte status -Hold Coreg / Flecainamide due to Sinus Bradycardia, per Dr. Peterson (Cardiology) -Dr. Rios recommended continuing to hold Coreg and Flecainamide 2. HTN -SBP remains elevated -Continue to hold Coreg and Flecainide (Per Cardiology) -Continue Lisinopril -Consider adjusting home medications for continued SBP elevation 3. Hypothyroidism -TSH 0.43 (WNL) -Continue Nature-Thyroid 105 mg PO Daily 4. HLD -Continue Atorvastatin 10 mg PO Daily VTE PPx: Home Eliquis Diet: HH incl low Na CODE STATUS: FULL CODE Disposition: Hold on Telemetry, achieve SBP reduction, await Cardiology consult
[2018-12-02] MEDS: Apixaban 5 MG TAB PO SCH ×2 (09:03→21:50)
[2018-12-02] MEDS: Potassium Chloride 8 MEQ TAB PO SCH (09:03)
[2018-12-02] MEDS: Cyanocobalamin (Vitamin B-12) 1,000 MCG TAB PO SCH (09:04)
[2018-12-02] MEDS: Hydrochlorothiazide 25 MG TAB PO SCH ×2 (10:32→21:50)
[2018-12-02] MEDS: Lisinopril 20 MG TAB PO SCH ×2 (10:33→21:50)
--- NOTE | 2018-12-02 13:32 | PRG ---
DATE OF SERVICE: 12/02/2018 Ms. Hardwick is a pleasant 68-year-old female with a history of atrial fibrillation. She was currently on flecainide and a beta janette for her atrial fibrillation. She evidently had a heart rate dropped down into the 30s, although this is not confirmatory. In the event, she was seen by Cardiology, who has elected to stop her flecainide and beta janette for the time being and see what her heart rate and rhythm does. This morning, she is awake, alert, and in no distress, and in fact, quite pleasant. Job ID: [id number]
[2018-12-02] MEDS: Sodium Chloride 0.9% 1,000 ML IV SCH (14:31)
[2018-12-02] MEDS: Acetaminophen 500 MG TAB PO PRN (21:30)
[2018-12-02] MEDS: Atorvastatin Calcium 10 MG TAB PO SCH (21:50)
--- NOTE | 2018-12-03 05:34 | PDOC.FM ---
Addendum entered and electronically signed by Bryson Durbin MD 12/03/18 09:21 : Physical Exam: Vitals Afebrile - HR(54) BP (141/78) RR(16) O2(96% - Room) HEENT: Normocephalic and atraumatic. Moist mucous membranes. FROM. CV: RRR w/o M/C/G/R Resp: CTAB w/o W/R/Rh ABD: Soft, non-tender, w/o distension M/S: FROM, +2 pulses at Posterior Tibial Arteries, bilaterally Original Note: - Subjective Subjective: Mrs. Hardwick is a pleasant 68 y/o female with a history of A-Fib, treated with ablation unsuccessfully, HTN, HLD and Hypothyroidism, who presented to the ED on 12/01 following an episode of dizzines and SOB while she was eating breakfast. The patient states that she felt fine earlier that morning , but felt like "everything was going black" while she was sitting at the breakfast table. The patient's witnessed the event and denied any symptoms worrisome for stroke. She received a fluid bolus and a single dose of Ativan for anxiety in the ED, which resolved her symptoms. Also in the ED, EKG showed sinus bradycardia with rates in the 30s, but subsequent rates during initial evaluation were in the 90s. Per Telemetry staff, the most recent readings demonstrated one short episode of sinus bradycardia, with rates in the 50s, and a quick return to baseline normal sinus rhythm with rates in 60s. She continues to deny syncopal episodes, CP, SOB, cough, fevers, chills or night sweats. She was seen yesterday by Dr. Peterson and Dr. Rios. Dr. Rios recommended DC'ing her Coreg and Flecainide, and adding an additional medication, but the patient could not recall the name. - Objective Vital Signs & Weight: Vital Signs (12 hours) Temp Pulse Resp BP BP Pulse Ox 12/03/18 02:29 98.0 F 54 L 16 141/78 H 96 12/02/18 21:50 138/78 12/02/18 20:00 98.0 F 61 16 138/78 96 Weight Weight 99.7 kg Result Diagrams: 12/01/18 19:50 12/01/18 19:50 Dx/Plan (1) Dizziness Code(s): R42 - DIZZINESS AND GIDDINESS Status: Acute (2) Shortness of breath Code(s): R06.02 - SHORTNESS OF BREATH Status: Acute (3) HTN (hypertension) Code(s): I10 - ESSENTIAL (PRIMARY) HYPERTENSION Status: Acute Qualifiers: Hypertension type: essential hypertension Qualified Code(s): I10 - Essential (primary) hypertension (4) Nausea Code(s): R11.0 - NAUSEA Status: Acute (5) Hypothyroidism Code(s): E03.9 - HYPOTHYROIDISM, UNSPECIFIED Status: Chronic - Plan Plan: 1. Symptomatic Bradycardia -Day #2 on Telemetry -Normal Sinus Rhythm w/ 1 short episode of sinus bradycardia (~50s), per Telemetry staff -EKG in ED: Sinus Bradycardia, w/o evidence of STEMI or Electrolyte Imbalance -BNP: 200 (High) -Toponin Levels: <0.01 (Low) -TSH: WNL -NS IV: 50 ml/hr (Per Cardiology Consult) -Continue to clinically evaluate Fluid / Electrolyte status -Hold Coreg / Flecainamide due to Sinus Bradycardia, per Dr. Peterson (Cardiology) -Dr. Rios recommended continuing to hold Coreg and Flecainamide, with additional medication adjustment to be followed on an outpatient status 2. HTN -SBP remains elevated -Continue to hold Coreg and Flecainide (Per Cardiology) -Continue Lisinopril -Consider adjusting home medications for continued SBP elevation 3. Hypothyroidism -TSH 0.43 (WNL) -Continue Nature-Thyroid 105 mg PO Daily 4. HLD -Continue Atorvastatin 10 mg PO Daily VTE PPx: Home Apixaban Diet: HH incl low Na CODE STATUS: FULL CODE Disposition: Patient appears stable at this time and with minimal risk of CVA or MO, respiratory, or neurologic causes to her 1 episode of near syncope. Coordinate w/ Case Management for DC today with final medication recommendations and F/U, per Cardiology consult Addendum - Attending - Attending Attestation Date/Time: 12/03/18 2431 I personally evaluated the patient and discussed the management with Dr. Durbin. I agree with the History, Examination, Assessment and Plan documented above with any addition or exceptions noted below. Asymptomatic, no further episodes. Plan for d/c with cards follow up and strict return precautions.
[2018-12-03] MEDS: Cyanocobalamin (Vitamin B-12) 1,000 MCG TAB PO SCH (08:56)
[2018-12-03] MEDS: Apixaban 5 MG TAB PO SCH (08:57)
[2018-12-03] MEDS: Potassium Chloride 8 MEQ TAB PO SCH (08:58)
[2018-12-03] MEDS: Hydrochlorothiazide 25 MG TAB PO SCH (08:58)
[2018-12-03] MEDS: Lisinopril 20 MG TAB PO SCH (09:00)
[2018-12-03 13:45] VITALS: BP 139/62; TEMP 98.2
--- NOTE | 2018-12-04 16:33 | DIS ---
DATE OF ADMISSION: 12/01/2018 DATE OF DISCHARGE: 12/03/2018 CONSULTS: Dr. Vladislav Peterson, Cardiology and Dr. Marlon Rios, Cardiology. PROCEDURES: None. PRIMARY DIAGNOSIS: Syncopal episode, most likely secondary to bradycardia. SECONDARY DIAGNOSES: Hypertension, hypothyroidism, coronary artery disease, atrial fibrillation, and hyperlipidemia. DISCHARGE MEDICATIONS: 1. Hydrochlorothiazide 12.5 mg p.o. b.i.d. 2. Lisinopril 20 mg p.o. b.i.d. DISCONTINUED MEDICATIONS: 1. Flecainide 75 mg p.o. b.i.d. 2. Carvedilol 6.25 mg p.o. b.i.d. HPI/HOSPITAL COURSE: The patient is a pleasant 68-year-old female, who presented to the emergency department with her and daughter. The patient has stated that she had an episode that morning at breakfast, where she felt dizzy and lightheaded, so she decided to go to the emergency department. She has a history significant for hypertension, hypothyroidism, CAD, atrial fibrillation, and hyperlipidemia. She states that she felt fine that morning, but felt like everything was going black while she was sitting in the breakfast table. EKG in the emergency department initially showed bradycardia with rates in the 30s. She was subsequently fluid resuscitated and given a single dose of Ativan for norris-anxiety, which resulted in her vital signs significantly improving, most notably heart rate returned to the 60s, which she states as her baseline. She did not complain of any significant endocrine dysfunction, chest pain, shortness of breath, cough, wheezing, changes in weight, fevers, chills, or night sweats. The patient's cousin stated that she did not have a traumatic fall nor she displays signs of facial drooping, dysarthria, ataxia, or cognitive impairment. The patient was admitted to the telemetry floor, where her heart rate and rhythms were monitored continuously. She remained in normal sinus rhythm for the majority of her stay except for an isolated period of sinus bradycardia. Her hemoglobin and hematocrit remained at 13.3/41.9. Her creatinine was 0.8 on discharge. Her troponins were less than 0.01. TSH level was 0.42. Her BNP was 200 and her urinalysis was unremarkable. She did not have any procedures completed while she was in the hospital and she was seen by Cardiology to discuss adjusting her medication dosage. DISPOSITION: Stable. DISCHARGE INSTRUCTIONS: 1. Location: Home. 2. Diet: Heart healthy. 3. Activity: Ad edgar. 4. Followup: The patient was instructed to follow up with Marlon Rios, cfd engineer in 7 days as well as Darci Melton, her primary care provider also in 7 days. She was advised to restart her home medication with the exception of those otherwise noted. Job ID: [id number]
== END 2018-12-03 13:45 | disposition home or self-care (01) | DRG 310 ==
LOC: ERS 08:57 → 2NO 10:40 → OBSVTOIN 12:19 → 3SE 12-03 08:18 → 2NO 12-03 08:19
PROVIDERS: ADMIT Family Medicine; ATTEND Family Medicine
DX: R00.1 Bradycardia, unspecified (principal); I25.10 Atherosclerotic heart disease of native coronary artery without angina pectoris; I48.91 Unspecified atrial fibrillation; E03.9 Hypothyroidism, unspecified; I10 Essential (primary) hypertension; E78.5 Hyperlipidemia, unspecified; F41.9 Anxiety disorder, unspecified; Z98.51 Tubal ligation status; Z87.891 Personal history of nicotine dependence; Z91.040 Latex allergy status; Z79.01 Long term (current) use of anticoagulants; Z79.899 Other long term (current) drug therapy
CPT/HCPCS: 36415; 71045; 80053; 81003; 81015; 82550; 83690; 83735; 83880; 84443; 84484; 85025; 93005; 94760; J2060

== ENCOUNTER 2018-12-10 12:29 | Inpatient (IN) | payer MEDICARE, OTHER ==
[2018-12-10] MEDS ORDERED: Diltiazem 125 MG/25 ML ONE ×2 (12:35→12:43)
[2018-12-10 13:01] LABS: #Eosinphils 0.4 thou/uL (0.0-0.7); #Lymphocytes 2.2 thou/uL (1.20-3.40); #Monocytes 0.6 thou/uL (0.11-0.59); #Neutrophils 5.2 thou/uL (1.40-6.50); %Basophils 0.5 % (0.0-1.0); %Eosinophils 4.5 % (0.0-10.0); %Lymphocytes 25.6 % (21.0-51.0); %Monocytes 7.6 % (0.0-10.0); %Neutrophils 61.8 % (42.0-75.0); Hemoglobin 14.6 g/dL (12.0-16.0); Mean Corpuscular HGB CONC 32.5 g/dL (32.0-36.0); Mean Corpuscular Hemoglobin 28.7 pg (27.0-31.0); Mean Corpuscular Volume 88.1 fL (78.0-98.0); Mean Platelet Volume 8.5 fL (7.4-10.4); Platelet Count 219 thou/uL (130-400); RBC Distribution Width 12.8 % (11.5-14.5); White Blood Cell (WBC) Count 8.4 thou/uL (4.8-10.8)
--- NOTE | 2018-12-10 13:13 | RAD ---
RADIOGRAPH CHEST 1 VIEW: DATE: 12/10/18 HISTORY: 68-year-old female with dyspnea and atrial fibrillation. FINDINGS: The thoracic aorta is tortuous and ectatic. There is no evidence of air space density, pneumothorax, or pulmonary edema. The lateral costophrenic angles are sharp. No cardiomegaly. Retrocardiac mass v isualized (prior CT shows that this is mostly fat). No interval change since 12/01/18. IMPRESSION: 1. No acute pulmonary findings. 2. Ectasia of thoracic aorta. 3. Intrathoracic herniation of intraperitoneal fat. maxine [] POS: [facility]
[2018-12-10 13:22] LABS: ALT (SGPT) 10 U/L (8-55); AST (SGOT) 19 U/L (5-34); Albumin 4.3 g/dL (3.4-4.8); Alkaline Phosphatase 90 U/L (40-150); Anion Gap 16 mmol/L (10-20); BUN (Urea Nitrogen) 12 mg/dL (9.8-20.1); Bilirubin, Total 0.5 mg/dL (0.2-1.2); Calc. Creatinine Clearance 0 mL/min (70-130); Calcium 9.6 mg/dL (7.8-10.44); Carbon Dioxide 21 mmol/L (23-31); Chloride 108 mmol/L (98-107); Estimated GFR-MDRD 76; Globulin 3.3 g/dL (2.4-3.5); Glucose 96 mg/dL (80-115); Potassium 3.7 mmol/L (3.5-5.1); Protein, Total 7.6 g/dL (6.0-8.3); Sodium 141 mmol/L (136-145)
[2018-12-10] MEDS ORDERED: Ondansetron ODT 4 MG TAB SL PRN (15:18)
[2018-12-10] MEDS ORDERED: Ondansetron PF 4 MG/2 ML Vial IVP PRN ×2 (15:18→16:59)
[2018-12-10 16:22] LABS: Troponin I Less than 0.010 ng/mL (< 0.028)
[2018-12-10] MEDS ORDERED: Acetaminophen 650 MG Suppository PR PRN (16:59)
[2018-12-10] MEDS ORDERED: Ondansetron ODT 4 MG TAB PO PRN (16:59)
[2018-12-10] MEDS ORDERED: Calcium Carbonate 500 MG ChewTAB PO PRN (16:59)
--- NOTE | 2018-12-10 18:15 | PDOC.FPRHP ---
- History of Present Illness Chief Complaint: Fast HR History of Present Illness: 68 yo F w/ pmh of A. terry comes to ER with c/c of not feeling well and heart running fast. Pt was recently in the hospital a week ago and treated for symptomatic bradycardia. She was taken off her flecanide and carvedilol. Pt had ablation 7 years ago. Pt reports doing well until this morning woke up and didn' t feel very good. Noticed some chest pain and her heart running fast. She then came to the ER where she was found to be in A.fib with RVR. ED Course: Started on Diltiazem drip. Pt would then convert to sinus rhythm and diltiazem drip would be D/C. - Allergies/Adverse Reactions Allergies Allergy/AdvReac Type Severity Reaction Status Date / Time adhesive tape Allergy Verified 10/17/17 01:33 latex Allergy Verified 10/17/17 01:33 - Home Medications Medication Instructions Recorded Confirmed Type Lisinopril/Hydrochlorothiazide 0.5 tab PO BID 05/15/14 12/10/18 History [Prinizide] Potassium Gluconate 99 mg PO DAILY 05/15/14 12/10/18 History Pravastatin Sodium [Pravachol] 40 mg PO HS 05/15/14 12/10/18 History Thyroid,Pork [Nature-Throid] 105 mg PO QAM 02/29/16 12/10/18 History Apixaban [Eliquis] 5 mg PO BID 10/17/17 12/10/18 History Cholecalciferol (Vitamin D3) 8,000 units PO DAILY 10/17/17 12/10/18 History [Gij-B-Vtcohdh] Cyanocobalamin (Vitamin B-12) 5,000 mcg PO DAILY 10/17/17 12/10/18 History [Vitamin B-12] - History PMHx: Chronic A fib on Eliquis, HTN, HLD, Hypothyroidism PSHx: tubal ligation, cardiac ablation, tonsillectomy FHx: noncontributory Social: Former smoker, quit 10 years ago, denies drug use and alcohol use - Review of Systems General: reports: fatigue. denies: fever/chills, weight/appetite/sleep changes , night sweats Eyes: denies: eye pain, vision changes ENT: denies: nasal congestion, rhinorrhea Respiratory: denies: cough, shortness of breath, exercise intolerance Cardiovascular: reports: palpitation. denies: chest pain, edema, paroxysmal nocturnal dyspnea, orthopnea Gastrointestinal: denies: nausea, vomiting, diarrhea, constipation, abdominal pain Genitourinary: denies: dysuria, polyuria Skin: denies: rashes, lesions Musculoskeletal: denies: pain, tenderness, swelling Neurological: denies: numbness, syncope, weakness Psychological: denies: anxiety, depression - Vital signs BP: [] HR: [] RR: [] Tmax: [] Pox: []% on [] Wt: [] - Physical Exam Constitutional: NAD, awake, alert and oriented, well developed HEENT: normocephalic and atraumatic, grossly normal vision, grossly normal hearing Neck: supple, no LAD, no JVD Chest: no-tender to palpation Heart: RRR, normal S1/S2, no murmurs/rubs/gallops, pulses present Lungs: CTAB, no respiratory distress, good air movement, no rales/rhonchi, no wheezing Abdomen: soft, non-tender, bowel sounds present, no masses/distention Musculoskeletal: normal structure, ROM grossly normal Neurological: no focal deficit, normal sensation Skin: no rash/lesions, capillary refill <2 seconds Heme/Lymphatic: no unusual bruising or bleeding, no petechia Psychiatric: normal mood and affect, good judgment and insight FMR H&P: Results - Labs Result Diagrams: 12/11/18 05:13 12/11/18 05:13 Lab results: WBC 8.4 thou/uL (4.8-10.8) 12/10/18 12:51 Hgb 14.6 g/dL (12.0-16.0) 12/10/18 12:51 Hct 44.9 % (36.0-47.0) 12/10/18 12:51 MCV 88.1 fL (78.0-98.0) 12/10/18 12:51 Plt Count 219 thou/uL (130-400) 12/10/18 12:51 Neutrophils % 61.8 % (42.0-75.0) 12/10/18 12:51 Sodium 141 mmol/L (136-145) 12/10/18 12:51 Potassium 3.7 mmol/L (3.5-5.1) 12/10/18 12:51 Chloride 108 mmol/L (98-107) H 12/10/18 12:51 Carbon Dioxide 21 mmol/L (23-31) L 12/10/18 12:51 BUN 12 mg/dL (9.8-20.1) 12/10/18 12:51 Creatinine 0.76 mg/dL (0.6-1.1) 12/10/18 12:51 Glucose 96 mg/dL (80-115) 12/10/18 12:51 Calcium 9.6 mg/dL (7.8-10.44) 12/10/18 12:51 Total Bilirubin 0.5 mg/dL (0.2-1.2) 12/10/18 12:51 AST 19 U/L (5-34) 12/10/18 12:51 ALT 10 U/L (8-55) 12/10/18 12:51 Alkaline Phosphatase 90 U/L (40-150) 12/10/18 12:51 Serum Total Protein 7.6 g/dL (6.0-8.3) 12/10/18 12:51 Albumin 4.3 g/dL (3.4-4.8) 12/10/18 12:51 - EKG Interpretation EKG: Sinus Rhythm - Radiology Interpretation Chest x-ray Status: image reviewed by me, report reviewed by me (1. no acute pulm findings. 2. Ectasia of thoracic aorta. 3. Intrathoracic herniation of intraperitoneal fat ) FMR H&P: A/P - Problem List (1) HLD (hyperlipidemia) Current Visit: Yes Status: Chronic Code(s): E78.5 - HYPERLIPIDEMIA, UNSPECIFIED (2) Atrial fibrillation with rapid ventricular response Current Visit: Yes Status: Acute Code(s): I48.91 - UNSPECIFIED ATRIAL FIBRILLATION (3) HTN (hypertension) Current Visit: No Status: Chronic Code(s): I10 - ESSENTIAL (PRIMARY) HYPERTENSION Qualifiers: Hypertension type: essential hypertension Qualified Code(s): I10 - Essential (primary) hypertension Comment: Stable (4) Hypothyroidism Current Visit: No Status: Chronic Code(s): E03.9 - HYPOTHYROIDISM, UNSPECIFIED Comment: Continue [place] Thyroid 97.5mg daily - Plan A. fib w/ RVR -Pt was placed on diltiazem drip and converted to sinus rhythm. We will observe on Tele overnight. Will restart drip and consider transition to oral medication if becomes tachy and goes back into A. fib. -Cardiology consulted- Dr. Rios- Will follow recs -continue home eliquis dose -Admit to tele -Pt in hospital last week. Records reviewed. TSH normal then. No need to repeat at this time. -Will trend troponin x3. Initial <.01 upon admission. HTN -continue home meds HLD -continue home meds Hypothyroidism -continue home meds DVT ppx: on eliquis GERD ppx: Tums FMR H&P: Upper Level - Plan Date/Time: 12/10/18 1813 I, [], have evaluated this patient and agree with findings/plan as outlined by general internal medicine physician resident. Pertinent changes/additions are listed here. Addendum - Attending - Attending Attestation Date/Time: 12/11/18 0902 I personally evaluated the patient and discussed the management with Dr. Luo on 12/10/2018 I agree with the History, Examination, Assessment and Plan documented above with any addition or exceptions noted below - 68 yo female with h/o HTN, hypothyroidism, HLD, A-fib s/p ablation 7 years ago who presents with palpitations, weakness, malaise. Patient had been hospitalized 1 week ago after syncopal episode and was found to be bradycardic. her flecainide and carvedilol were discontinued with improvement in her symptoms and heart rate. In ER patient noted to be in A-fib with HI=762. Given IV diltiazem and converted to sinus rhythym and her symptoms resolved. PMH/PSH/Meds/All reviewed and agree with resident's documentation. T97.6 P69 RR16 BP 146/76 Exam repeated by me and agree with resident's findings. labs: H/H=14.6/44.9, Aq=516, K=3.7, Xm=503, CO2=21, BUn/Cr=12/0.76, Gluc=96, Trop I<0.010. A/P: 1) A-fib with RVR now SR- Place in obs, Cardiology consulted for further evaluation. May need repeat ablation. 2) HTN- continue home medications. 3) Hypothyroidism- continue home medications
[2018-12-10 19:31] LABS: Troponin I 0.036 ng/mL (< 0.028)
[2018-12-10] MEDS: Lisinopril/Hydrochlorothiazide 20 mg/12.5 mg Tablet PO SCH (22:20)
[2018-12-10] MEDS: Pravastatin Sodium 40 MG TAB PO SCH (22:21)
[2018-12-10] MEDS: Apixaban 5 MG TAB PO SCH (22:22)
--- NOTE | 2018-12-10 22:29 | CON ---
DATE OF CONSULTATION: HISTORY OF PRESENT ILLNESS: The patient is a 68-year-old woman with a history of atrial fibrillation, who presented with recurrent palpitations. The patient has a previously undergone radiofrequency ablation in [place] by Dr. Lee. She had done well until subsequently returning back into atrial fibrillation. She has been taking flecainide and Coreg. She presented to the hospital a week ago with severe bradycardia. She nearly lost consciousness. The patient was monitored in the hospital and taken off her carvedilol and flecainide. The patient's heart rate increased. She went home and was feeling well until today, when she developed recurrent palpitations. She was found to be apparently in atrial fibrillation, received IV Cardizem by EMS. The patient by the time she arrived to emergency was back in normal sinus rhythm and the patient states as soon as she converted she felt well. She denies having any further palpitations. PAST MEDICAL HISTORY: Significant for; 1. Atrial fibrillation. 2. Hypertension. 3. History of bradycardia. 4. Tonsillectomy. 5. Obstructive sleep apnea. PAST SURGICAL HISTORY: . SOCIAL HISTORY: Nonsmoker. ALLERGIES: SHE IS ALLERGIC TO LATEX. MEDICATIONS: On admission include; 1. Nature-Throid. 2. Pravachol 40 daily. 3. Potassium daily. 4. Prinzide 20/12.5 p.o. b.i.d. 5. Eliquis 5 b.i.d. REVIEW OF SYSTEMS: Ten-point review of systems is unremarkable. PHYSICAL EXAMINATION: GENERAL: Obese woman, in no acute distress. VITAL SIGNS: Blood pressure 146/76. NECK: No jugular venous distention. LUNGS: Clear to auscultation. HEART: Regular rate and rhythm. Normal S1, S2. No murmurs. ABDOMEN: Distended. EXTREMITIES: Show no edema. VASCULAR: Radial pulses are 2+. LABORATORY DATA: Sodium 141, potassium 3.7, chloride 108, bicarbonate 21, BUN 12, creatinine 0.76, glucose 96. Troponin less than 0.01. White blood cell count 8.4, hemoglobin 14.6, hematocrit 44.9, her platelets are 219. EKG reveals normal sinus rhythm with a normal ECG. IMPRESSION: 1. Atrial fibrillation, recurrent. 2. History of severe bradycardia. 3. Hypertension. 4. Obesity. 5. Sleep apnea. PLAN: This patient apparently was in atrial fibrillation, converted with IV Cardizem. I discussed the case with both Dr. Lee and Dr. Rachel. I am waiting for their recommendation. The patient is being maintained on Cardizem. I am hesitant to place her on any antiarrhythmic medication due to her marked bradycardia. We will follow this patient with you through her hospitalization. Job ID: [id number]
[2018-12-11] MEDS: Acetaminophen 325 MG TAB PO PRN ×2 (00:39→21:52)
[2018-12-11 05:22] LABS: #Basophils 0.1 thou/uL (0.0-0.2); #Eosinphils 0.3 thou/uL (0.0-0.7); #Lymphocytes 2.3 thou/uL (1.20-3.40); #Monocytes 0.7 thou/uL (0.11-0.59); #Neutrophils 5.5 thou/uL (1.40-6.50); %Basophils 0.9 % (0.0-1.0); %Eosinophils 3.5 % (0.0-10.0); %Lymphocytes 25.9 % (21.0-51.0); %Monocytes 7.9 % (0.0-10.0); %Neutrophils 61.9 % (42.0-75.0); Hemoglobin 13.1 g/dL (12.0-16.0); Mean Corpuscular HGB CONC 33.6 g/dL (32.0-36.0); Mean Corpuscular Hemoglobin 29.3 pg (27.0-31.0); Mean Corpuscular Volume 87.2 fL (78.0-98.0); Mean Platelet Volume 8.6 fL (7.4-10.4); Platelet Count 239 thou/uL (130-400); RBC Distribution Width 12.7 % (11.5-14.5); Red Blood Cell (RBC) Count 4.48 mill/uL (4.20-5.40); White Blood Cell (WBC) Count 8.8 thou/uL (4.8-10.8)
[2018-12-11 05:43] LABS: Anion Gap 11 mmol/L (10-20); BUN (Urea Nitrogen) 13 mg/dL (9.8-20.1); Calc. Creatinine Clearance 119 mL/min (70-130); Calcium 9.7 mg/dL (7.8-10.44); Carbon Dioxide 26 mmol/L (23-31); Chloride 106 mmol/L (98-107); Estimated GFR-MDRD 79; Glucose 89 mg/dL (80-115); Potassium 3.5 mmol/L (3.5-5.1); Sodium 139 mmol/L (136-145)
--- NOTE | 2018-12-11 05:51 | PDOC.FM ---
- Subjective Subjective: Pt is doing well this morning without any return of her afib. She states she was able to sleep well overnight without any acute events. She denies any n/v/d/ c, diaphoresis, palpitations, CP, SOB, fever/chills. She states she can feel whenever she goes into afib and has not had that feeling since being in the ED. She is eagerly awaiting cards recommendations. No other concerns or complaints for this morning. - Objective MAR Reviewed: Yes Vital Signs & Weight: Vital Signs (12 hours) Temp Pulse Resp BP Pulse Ox 12/11/18 05:22 97.7 F 57 L 12 105/53 L 94 L 12/11/18 01:20 97.6 F 63 15 131/70 95 12/10/18 22:20 64 12/10/18 19:26 97.5 F L 64 15 163/66 H 96 Weight Weight 100.561 kg I&O: 12/09/18 12/10/18 12/11/18 06:59 06:59 06:59 Intake Total 1100 Output Total 1900 Balance -800 Result Diagrams: 12/11/18 05:13 12/11/18 05:13 EKG Reviewed by me: Yes (Tele: NSR overnight) Phys Exam - Physical Examination Constitutional: NAD (pleasant) HEENT: PERRLA, moist MMs Neck: supple Respiratory: no wheezing, no rales, no rhonchi, clear to auscultation bilateral Cardiovascular: no significant murmur, no rub Bradycardia, regular rhythm Gastrointestinal: soft, non-tender, no distention, positive bowel sounds Musculoskeletal: no edema, pulses present Neurological: non-focal Psychiatric: normal affect Dx/Plan (1) Atrial fibrillation with rapid ventricular response Code(s): I48.91 - UNSPECIFIED ATRIAL FIBRILLATION Status: Acute (2) HLD (hyperlipidemia) Code(s): E78.5 - HYPERLIPIDEMIA, UNSPECIFIED Status: Chronic (3) HTN (hypertension) Code(s): I10 - ESSENTIAL (PRIMARY) HYPERTENSION Status: Chronic Qualifiers: Hypertension type: essential hypertension Qualified Code(s): I10 - Essential (primary) hypertension (4) Hypothyroidism Code(s): E03.9 - HYPOTHYROIDISM, UNSPECIFIED Status: Chronic - Plan Plan: 68yo F with h/o of Afib on Eliquis presents with Afib with RVR. A. fib w/ RVR - Pt initially placed on diltiazem drip and rapidly converted to sinus rhythm. No acute events on tele overnight, remained in sinus colby. - Cardiology consulted- Dr. Rios, recommended d/c of dilt gtt and no oral antiarrhythmics at this time due to recent hospitalization of sx sinus bradycardia and coreg and flecanide discontinued at the time. Continue observation on tele. Will discuss further plan, appreciate recs. - Continue home eliquis. History of ablation 7 years ago. - Trop <0.010 x2 then increase to 0.036, repeat this morning 0.025. No CP, SOB, or acute events. HTN - continue home Lisinopril/HCTZ HLD - continue home Prava Hypothyroidism - continue home nature thyroid - Records reviewed. TSH recently normal at hospitalization last week. No need to repeat at this time. DVT ppx: on home eliquis GERD ppx: Tums Diet: HH Code: Full Dispo: Pending cardio recs and clinical improvement. Hospitalization anticipated < 48 hours.
[2018-12-11 06:31] LABS: Troponin I 0.025 ng/mL (< 0.028)
[2018-12-11] MEDS: Cyanocobalamin (Vitamin B-12) 1,000 MCG TAB PO SCH (08:45)
[2018-12-11] MEDS: Apixaban 5 MG TAB PO SCH ×2 (08:46→20:34)
[2018-12-11] MEDS: Lisinopril/Hydrochlorothiazide 20 mg/12.5 mg Tablet PO SCH ×2 (08:46→20:32)
[2018-12-11] MEDS: Thyroid 30 MG TAB PO SCH (08:46)
[2018-12-11] MEDS: Potassium Chloride 8 MEQ TAB PO SCH (08:47)
--- NOTE | 2018-12-11 11:48 | PRG ---
DATE OF SERVICE: 12/11/2018 Ms. Hardwick is a pleasant 68-year-old lady who had been on a beta janette and flecainide several weeks ago for atrial fibrillation. She had episodes of symptomatic bradycardia and these medications were stopped. On admission today, what brought her in today was an episode of atrial fibrillation with RVR for which we started diltiazem infusion, which converted her back to normal sinus rhythm. She is seen in consultation by Cardiology who recommended EP studies. She is scheduled for ablation tomorrow. Right now, she is in normal sinus rhythm, in no distress. Job ID: [id number]
[2018-12-11] MEDS: Pravastatin Sodium 40 MG TAB PO SCH (20:32)
--- NOTE | 2018-12-12 06:29 | PDOC.FM ---
- Subjective Subjective: Pt doing well this morning. No concerns or complaints. No acute events overnight. No CP, SOB, n/v/d/c, fevers/chills. She is going to distillery laborer for ablation this morning and is eager for the procedure. - Objective MAR Reviewed: Yes Vital Signs & Weight: Vital Signs (12 hours) Temp Pulse Resp BP Pulse Ox 12/12/18 04:00 97.6 F 57 L 18 139/64 96 12/11/18 23:52 56 L 153/59 H 12/11/18 21:00 97.9 F 69 18 139/71 98 12/11/18 20:32 68 12/11/18 20:00 98 Weight Weight 225.7 g I&O: 12/10/18 12/11/18 12/12/18 06:59 06:59 06:59 Intake Total 2700 510 Output Total 2300 Balance 400 510 Result Diagrams: 12/11/18 05:13 12/11/18 05:13 EKG Reviewed by me: Yes (Tele: sinus colby in 50s and 60s) Phys Exam - Physical Examination Constitutional: NAD HEENT: moist MMs Neck: supple symmetric chest wall expansion, normal respiratory effort Cardiovascular: RRR Gastrointestinal: soft, non-tender, no distention Musculoskeletal: no edema Neurological: non-focal, moves all 4 limbs Psychiatric: normal affect, A&O x 3 Dx/Plan (1) Atrial fibrillation with rapid ventricular response Code(s): I48.91 - UNSPECIFIED ATRIAL FIBRILLATION Status: Acute (2) HLD (hyperlipidemia) Code(s): E78.5 - HYPERLIPIDEMIA, UNSPECIFIED Status: Chronic (3) HTN (hypertension) Code(s): I10 - ESSENTIAL (PRIMARY) HYPERTENSION Status: Chronic Qualifiers: Hypertension type: essential hypertension Qualified Code(s): I10 - Essential (primary) hypertension (4) Hypothyroidism Code(s): E03.9 - HYPOTHYROIDISM, UNSPECIFIED Status: Chronic - Plan Plan: 68yo CF with h/o of Afib on Eliquis presents with Afib with RVR. A. fib w/ RVR - Pt initially placed on diltiazem drip and rapidly converted to sinus rhythm. No acute events on tele since admission. Cont to monitor. - Cardiology consulted- Dr. Rios, recommended d/c of dilt gtt and no oral antiarrhythmics at this time due to recent hospitalization of sx sinus bradycardia and coreg and flecanide discontinued at the time. Spoke with Dr. Lee, EP, going for ablation this morning. - Continue home eliquis. History of ablation 7 years ago. - Trop <0.010 x2 then increase to 0.036, repeat this morning 0.025. No CP, SOB, or acute events. Likely demand ischemia 2/2 run of afib with RVR. HTN - continue home Lisinopril/HCTZ HLD - continue home Prava Hypothyroidism - continue home nature thyroid - Records reviewed. TSH recently normal at hospitalization last week. No need to repeat at this time. DVT ppx: on home eliquis GERD ppx: Tums Diet: NPO for ablation, HH after. Code: Full Dispo: Pending ablation by EP, cards recommendation, and monitoring on tele. Hospitalization anticipated 2-3 days.
[2018-12-12] MEDS ORDERED: Heparin 10,000 UNITS/1 ML VIAL ONE ×2 (06:43→08:46)
[2018-12-12] MEDS ORDERED: Lidocaine 1% (PF) 30 ML VIAL ONE (06:44)
[2018-12-12] MEDS ORDERED: Famotidine/PF 20 mg/2ml Vial ONE (08:02)
[2018-12-12] MEDS ORDERED: Fentanyl 100 MCG/2 ML VIAL ONE ×2 (08:02→11:28)
[2018-12-12] MEDS ORDERED: Midazolam HCl 2 mg/2 ml Vial ONE (08:12)
[2018-12-12] MEDS ORDERED: Heparin 25,000 units/D5W 0 ML ONE (08:46)
[2018-12-12] MEDS ORDERED: Isoproterenol 0.2 MG/1 ML AMP ONE (09:45)
[2018-12-12] MEDS ORDERED: Protamine Sulfate 50 MG/5 ML VIAL ONE (10:46)
--- NOTE | 2018-12-12 11:00 | PRG ---
DATE OF SERVICE: Ms. Hardwick is currently down for her ablation. Job ID: [id number]
--- NOTE | 2018-12-12 12:17 | OP ---
DATE OF PROCEDURE: 12/12/2018 PROCEDURES PERFORMED: 1. Comprehensive EP testing with 3D mapping and ablation of atrial fibrillation. 2. Transseptal catheterization x2. 3. Intracardiac echocardiography. CLINICAL INDICATION: Drug refractory atrial fibrillation with a previous ablation many years ago. ASA CLASSIFICATION: 3. ANESTHESIA: General endotracheal anesthesia per Anesthesiology. ADDITIONAL CARDIAC MEDICATIONS: Isoproterenol 10 mcg/min infusion for 10 minutes. TOTAL HEPARIN GIVEN: 20,000 units. TOTAL PROTAMINE GIVEN: 40 mg. TOTAL ABLATION TIME: 20 minutes and 11 seconds. TOTAL FLUOROSCOPY TIME: Zero. ACUTE COMPLICATIONS: None apparent. METHODS: After informed consent was obtained, the patient was taken to the EP lab in a fasting state. Both groins were prepped and draped using ultrasound guidance. The right and left femoral veins were accessed twice each, and an 11-Finnish and an 8-Finnish sheaths were placed in left groin, two 8-Finnish sheaths were placed in right groin. All 8-Finnish sheaths were replaced by long sheaths for catheter stability. An echo probe was placed in the left groin and advanced to the right atrium and right ventricle for imaging. A circular and ablation catheter was placed in the right groin and advanced to the right atrium. A 3D map was obtained of the right atrium and the coronary sinus. A 20-pole catheter was placed in left groin and advanced toward the coronary sinus. The patient was then anticoagulated, and transseptal catheterization was performed using ultrasound guidance along with 3D mapping guidance. A 3D map was obtained at the left atrium. A temperature probe was placed in the esophagus, co-located with a sensor for localization on the 3D mapping system. Ablation was delivered re-isolating the right superior and left inferior pulmonary veins and the posterior wall of the left atrium. The patient had some firing spontaneously seen from the coronary sinus and evidence of what appeared to be isthmus dependent flutter, which terminated. Flutter circuit was mapped and ablated using pacing from the coronary sinus with bidirectional block confirmed, after which the coronary sinus was completely isolated from within the cavity of the coronary sinus as well as from the left atrium. No further arrhythmias were seen with programmed stimulation as well as chemical isoproterenol challenge. At the conclusion of procedure, catheters were withdrawn, sheaths were pulled, hemostasis was achieved with collagen closure and suture closure. RESULTS: 1. Baseline intervals; spontaneous sinus cycle length 931 milliseconds, OR interval 180 milliseconds, QRS interval 65 milliseconds, HV interval 35 milliseconds. 2. Atrial function; the patient was in sinus rhythm; however, had spontaneous burst of atrial arrhythmias, most of which appear to be arising from the coronary sinus. The patient also had evidence of a brief run of atrial flutter. These were mapped and ablated as described in the method section along with re-isolation of veins and posterior wall of the left atrium. 3. AV paula function; anterograde block was less than 500 milliseconds when pacing from the coronary sinus. There was no VA conduction seen. 4. Ablation details; a total of 20 minutes and 11 seconds of ablation was delivered with a [employer] open irrigated, contact force, sensor enabled catheter to isolate the posterior wall in the left and the left-sided veins that reconnects along with coronary sinus and to interrupt the cavotricuspid isthmus. IMPRESSION: Successful pulmonary vein antral isolation with re-isolation of veins, posterior wall isolation of the coronary sinus and the CTI line. RECOMMENDATION: Continue with oral anticoagulation for at least 3 months. Job ID: [id number]
[2018-12-12] MEDS ORDERED: Promethazine HCl 25 MG/ML VIAL IM/IV PRN (12:18)
[2018-12-12] MEDS ORDERED: Ondansetron HCl/PF 4 MG/2 ML Vial IVP PRN (12:18)
[2018-12-12] MEDS: Thyroid 30 MG TAB PO SCH (13:17)
[2018-12-12] MEDS: Potassium Chloride 8 MEQ TAB PO SCH (13:18)
[2018-12-12] MEDS: Lisinopril/Hydrochlorothiazide 20 mg/12.5 mg Tablet PO SCH ×2 (13:19→20:53)
[2018-12-12] MEDS: Acetaminophen 325 MG TAB PO PRN ×2 (13:19→20:53)
[2018-12-12] MEDS: Apixaban 5 MG TAB PO SCH ×2 (13:24→20:56)
[2018-12-12] MEDS: Cyanocobalamin (Vitamin B-12) 1,000 MCG TAB PO SCH (13:25)
[2018-12-12] MEDS ORDERED: Morphine 2 MG/ML SYRINGE SLOW IVP PRN (13:47)
[2018-12-12] MEDS: Pravastatin Sodium 40 MG TAB PO SCH (20:55)
--- NOTE | 2018-12-13 05:15 | PDOC.FM ---
- Subjective Subjective: Pt is doing well this morning, slept well overnight and eager for discharge. She did experience some mild bleeding from the cath site overnight that resolved with compression. Cardiology came by and ordered a lower ext US. No acute events on tele. No Cp, SOB, n/v/d/c/, fevers/chills. Ambulating with mild soreness. - Objective MAR Reviewed: Yes Vital Signs & Weight: Vital Signs (12 hours) Temp Pulse Resp BP BP Pulse Ox 12/13/18 04:00 97.5 F L 61 18 118/58 L 97 12/13/18 00:00 61 135/65 96 12/12/18 20:53 68 143/72 H 12/12/18 20:00 97 12/12/18 19:55 97.7 F 72 20 143/72 H 97 Weight Weight 225.7 g I&O: 12/11/18 12/12/18 12/13/18 06:59 06:59 06:59 Intake Total 2700 510 1430 Output Total 2300 Balance 970 644 4004 Result Diagrams: 12/11/18 05:13 12/11/18 05:13 EKG Reviewed by me: Yes (Tele: sinus, no acute events) Phys Exam - Physical Examination Constitutional: NAD HEENT: moist MMs Neck: supple Respiratory: no wheezing, no rales, no rhonchi, clear to auscultation bilateral Cardiovascular: RRR, no significant murmur, no rub Gastrointestinal: soft, non-tender, no distention, positive bowel sounds Musculoskeletal: no edema Psychiatric: normal affect Deviation from normal: dry and clean cath site on right groin area. No hematoma , erythema. -: Mild TTP of site. No LE edema. Dx/Plan (1) Atrial fibrillation with rapid ventricular response Code(s): I48.91 - UNSPECIFIED ATRIAL FIBRILLATION Status: Acute (2) HLD (hyperlipidemia) Code(s): E78.5 - HYPERLIPIDEMIA, UNSPECIFIED Status: Chronic (3) HTN (hypertension) Code(s): I10 - ESSENTIAL (PRIMARY) HYPERTENSION Status: Chronic Qualifiers: Hypertension type: essential hypertension Qualified Code(s): I10 - Essential (primary) hypertension (4) Hypothyroidism Code(s): E03.9 - HYPOTHYROIDISM, UNSPECIFIED Status: Chronic - Plan Plan: 68yo CF with h/o of Afib on Eliquis presents with Afib with RVR s/p ablation POD #1 A. fib w/ RVR - Pt initially placed on dilt drip and rapidly converted to sinus. No acute events on tele since admission. H/o sx colby on BB. Trops neg. Cont to monitor. - Cardiology consulted- Dr. Rios, underwent ablation with Dr. Lee POD#1. Recommended at least 3mo anticoagulation post procedure, appreciate recs. - Continue home eliquis. - Minimal Bleeding from cath site overnight that resolved with compression, Cards ordered LE US, currently pending. Encourage ambulation. HTN - continue home Lisinopril/HCTZ HLD - continue home Prava Hypothyroidism - continue home nature thyroid DVT ppx: on home eliquis GERD ppx: Tums Diet: HH after. Code: Full Dispo: Pending cards/EP recommendation, s/p ablation POD#1. Plan to discharge once cardio cleared.
[2018-12-13] MEDS ORDERED: Acetaminophen 325 MG TAB PO SCH (08:30)
[2018-12-13] MEDS: Cyanocobalamin (Vitamin B-12) 1,000 MCG TAB PO SCH (09:12)
[2018-12-13] MEDS: Thyroid 30 MG TAB PO SCH (09:12)
[2018-12-13] MEDS: Potassium Chloride 8 MEQ TAB PO SCH (09:13)
[2018-12-13] MEDS: Lisinopril/Hydrochlorothiazide 20 mg/12.5 mg Tablet PO SCH (09:13)
[2018-12-13] MEDS: Apixaban 5 MG TAB PO SCH (09:14)
--- NOTE | 2018-12-13 10:33 | ULT ---
RIGHT GROIN ULTRASOUND WITH DOPPLER: Date: 12/13/18 PROVIDED CLINICAL HISTORY: Groin catheterization site bleeding. FINDINGS: Limited sonographic interrogation was performed in the right groin region at the incision site. There is a 3.2 cm hypoechoic focus of altered echogenicity adjacent to the femoral artery. This demonstrat es no evidence for internal flow. Color Doppler and spectral analysis of the adjacent arterial and ve nous waveforms demonstrates normal flow. IMPRESSION: Right groin hematoma without evidence for pseudoaneurysm. POS: [place]
--- NOTE | 2018-12-13 11:21 | PRG ---
DATE OF SERVICE: 12/13/2018 Ms. Hardwick is her usual pleasant self this morning. She is sitting in bed, in no distress. She had a successful ablation yesterday and will be discharged probably today. She is however having some "oozing" from her groin puncture site. This will need to be monitored for a few more hours with disposition for discharge afterwards. Job ID: [id number]
[2018-12-13] MEDS: Acetaminophen 325 MG TAB PO PRN ×2 (13:39→18:06)
[2018-12-13 15:33] VITALS: BP 117/59; TEMP 97.8
--- NOTE | 2018-12-15 02:15 | DIS ---
DATE OF ADMISSION: 12/11/2018 DATE OF DISCHARGE: 12/13/2018 RESIDENT: Kyle Dong MD. ADMITTING ATTENDING: Octavia Wilson MD DISCHARGE ATTENDING: Harman Yang MD. CONSULTS: 1. Cardiology, Dr. Marlon Rios. 2. Electrophysiology, Dr. Lee. PROCEDURES: 1. Chest x-ray on 12/10/2018. Demonstrated no acute pulmonary findings. 2. Lower extremity ultrasound on 12/13/2018. Right groin hematoma without evidence of pseudoaneurysm. 3. EP testing with 3D mapping and ablation of atrial fibrillation, transseptal catheterization x2, intracardiac echocardiogram on 12/12/2018, by Dr. Lee. PRIMARY DIAGNOSIS: Atrial fibrillation with rapid ventricular response, status post ablation. SECONDARY DIAGNOSES: 1. Hypertension. 2. Hyperlipidemia. 3. Hypothyroidism. DISCHARGE MEDICATIONS: 1. Potassium gluconate one tablet by mouth p.o. daily. 2. Lisinopril hydrochlorothiazide 20/12.5 one half tab p.o. b.i.d. 3. Pravastatin 40 mg p.o. at bedtime. 4. Nature Thyroid 105 mg p.o. q.a.m. 5. Vitamin B12 5000 mcg p.o. daily. 6. Eliquis 5 mg p.o. b.i.d. 7. Cholecalciferol 8000 units p.o. daily. DISCONTINUED MEDICATIONS: None. HISTORY OF PRESENT ILLNESS/HOSPITAL COURSE: The patient is a pleasant 68-year-old female with past medical history of atrial fibrillation status post ablation 7 years ago, who presented with tachycardia and general malaise. The patient was recently treated in the hospital a week prior to admission for symptomatic bradycardia and at that time, it had been recommended for her to discontinue her flecainide and carvedilol. The patient had been in her usual state of health until the morning of admission when she noticed that she had some chest pain and tachycardia and came to the ER, where she was found to be in atrial fibrillation with RVR. In the emergency room, she was started on a diltiazem drip and rapidly converted to sinus rhythm. She was then admitted to the floor for further evaluation and management. Once on the floor, she was monitored on telemetry and taken off the diltiazem drip. Her troponins were trended and negative. Cardiology was consulted who recommended ablation and thus, Dr. Lee with EP was consulted. The patient had a recent TSH checked at last admission that was normal. Her home medications were continued for her chronic medical conditions. The patient remained in sinus rhythm with episodes of bradycardia, but otherwise asymptomatic. On 12/12/2018, she was taken to the laboratory chemical assistant for ablation as described above by Dr. Lee. She tolerated the procedure well and was taken back to her room in a stable condition. Overnight, she did have some minimal bleeding from the cardiac cath site, thus an ultrasound was ordered with results as above, and the bleeding resolved with compression with hemostasis. Cardiology then cleared her for discharge to continue on her home Eliquis for a minimum of 3 months and to follow up with Cardiology as directed. At the time of discharge, the patient was doing well in her normal state of health, ambulating without any difficulty, and denied any chest pain, shortness of breath, fevers, chills, nausea, vomiting, or pain of any kind. The patient was eager to be discharged home. Discharge plan was discussed with the patient including the need to follow up with primary care physician and tin can laborer as directed. The patient and at bedside voiced agreement, understanding of discharge plan and were eager to go home. The patient was then discharged. DISPOSITION: Stable. DISCHARGE INSTRUCTIONS: 1. Location, home. 2. Diet, heart healthy. 3. Activity, as tolerated. 4. Followup: The patient should follow up with the tin can laborer as directed as well as her primary care physician within one week. Job ID: [id number]
== END 2018-12-13 16:21 | disposition home or self-care (01) | DRG 274 ==
LOC: ERS 12:29 → 2SW 15:21 → OBSVTOIN 12-11 11:35 → 2NO 12-11 18:27
PROVIDERS: ADMIT Family Medicine; ATTEND Family Medicine
PROC: 02583ZZ Destruction of Conduction Mechanism, Percutaneous Approach (ICD-10-PCS; principal; 2018-12-12)
PROC: 02K83ZZ Map Conduction Mechanism, Percutaneous Approach (ICD-10-PCS; 2018-12-12)
PROC: B245ZZZ Ultrasonography of Left Heart (ICD-10-PCS; 2018-12-12)
DX: I48.91 Unspecified atrial fibrillation (principal); I10 Essential (primary) hypertension; E78.5 Hyperlipidemia, unspecified; E03.9 Hypothyroidism, unspecified; G47.33 Obstructive sleep apnea (adult) (pediatric); E66.9 Obesity, unspecified; I25.10 Atherosclerotic heart disease of native coronary artery without angina pectoris; Z91.040 Latex allergy status; Z79.01 Long term (current) use of anticoagulants; Z79.899 Other long term (current) drug therapy; Z68.35 Body mass index [BMI] 35.0-35.9, adult; Z87.891 Personal history of nicotine dependence; Z98.51 Tubal ligation status
CPT/HCPCS: 36415; 71045; 76942; 80048; 80053; 84484; 85025; 85347; 93005; 93462; 93613; 93622; 93623; 93656; 93657; 93662; 93926; 96361; 96365; C1731; C1732; C1759; C1760; J0131; J1644; J2001; J2250; J2270; J2720; J3010; S0028

== ENCOUNTER 2019-03-22 03:19 | Emergency (ER) | payer MEDICARE, OTHER | END 2019-03-22 05:01 | disposition home or self-care (01) | LOC: ERS 03:19 | DX: J39.2 Other diseases of pharynx (principal); J34.89 Other specified disorders of nose and nasal sinuses; I25.10 Atherosclerotic heart disease of native coronary artery without angina pectoris; I48.91 Unspecified atrial fibrillation; E03.9 Hypothyroidism, unspecified; I10 Essential (primary) hypertension; Z87.891 Personal history of nicotine dependence; Z79.01 Long term (current) use of anticoagulants; Z79.899 Other long term (current) drug therapy | CPT/HCPCS: 87081; 87430; 99283 ==

== ENCOUNTER 2019-04-06 02:19 | Emergency (ER) | payer MEDICARE, OTHER ==
[2019-04-06 02:44] LABS: #Basophils 0.1 thou/uL (0.0-0.2); #Eosinphils 0.4 thou/uL (0.0-0.7); #Lymphocytes 3.2 thou/uL (1.20-3.40); #Monocytes 0.8 thou/uL (0.11-0.59); #Neutrophils 7.6 thou/uL (1.40-6.50); %Basophils 0.7 % (0.0-1.0); %Lymphocytes 26.6 % (21.0-51.0); %Monocytes 6.7 % (0.0-10.0); %Neutrophils 63.1 % (42.0-75.0); Hemoglobin 14.4 g/dL (12.0-16.0); Mean Corpuscular HGB CONC 32.8 g/dL (32.0-36.0); Mean Corpuscular Hemoglobin 27.7 pg (27.0-31.0); Mean Corpuscular Volume 84.5 fL (78.0-98.0); Mean Platelet Volume 8.5 fL (7.4-10.4); Platelet Count 302 thou/uL (130-400); RBC Distribution Width 13.2 % (11.5-14.5); White Blood Cell (WBC) Count 12.1 thou/uL (4.8-10.8)
[2019-04-06 03:02] LABS: ALT (SGPT) 11 U/L (8-55); AST (SGOT) 17 U/L (5-34); Albumin 4.4 g/dL (3.4-4.8); Alkaline Phosphatase 99 U/L (40-110); Anion Gap 13 mmol/L (10-20); BUN (Urea Nitrogen) 14 mg/dL (9.8-20.1); Bilirubin, Total 0.5 mg/dL (0.2-1.2); Calc. Creatinine Clearance 0 mL/min (70-130); Calcium 9.5 mg/dL (7.8-10.44); Carbon Dioxide 27 mmol/L (23-31); Chloride 104 mmol/L (98-107); Estimated GFR-MDRD 63; Globulin 3.3 g/dL (2.4-3.5); Glucose 119 mg/dL (80-115); Potassium 3.7 mmol/L (3.5-5.1); Protein, Total 7.7 g/dL (6.0-8.3); Sodium 140 mmol/L (136-145)
[2019-04-06] MEDS ORDERED: Ondansetron ODT 4 MG TAB ONE (03:47)
--- NOTE | 2019-04-06 09:16 | RAD ---
RADIOGRAPH CHEST 1 VIEW: DATE: 04/06/19 HISTORY: 68-year-old female with dyspnea. FINDINGS: The thoracic aorta is tortuous and ectatic. There is no evidence of air space density, pneumothorax, or pulmonary edema. The lateral costophrenic angles are sharp. There is no cardiomegaly. IMPRESSION: 1. No acute pulmonary findings. 2. Ectasia of thoracic aorta. jn [] POS: OFF
== END 2019-04-06 05:11 | disposition home or self-care (01) ==
LOC: ERS 02:19
DX: F41.9 Anxiety disorder, unspecified (principal); I25.10 Atherosclerotic heart disease of native coronary artery without angina pectoris; I49.9 Cardiac arrhythmia, unspecified; I48.91 Unspecified atrial fibrillation; E03.9 Hypothyroidism, unspecified; I10 Essential (primary) hypertension; Z87.891 Personal history of nicotine dependence; Z79.01 Long term (current) use of anticoagulants; Z79.899 Other long term (current) drug therapy
CPT/HCPCS: 36415; 71045; 80053; 82550; 83880; 84484; 85025; 85379; 93005; Q0162

== ENCOUNTER 2019-04-28 20:30 | Outpatient (CLI) | payer MEDICARE, OTHER | END 2019-04-28 20:31 | disposition home or self-care (01) | LOC: SLEEPLAB 20:30 | PROVIDERS: ATTEND Nurse Practitioner Adult Health | DX: G47.33 Obstructive sleep apnea (adult) (pediatric) (principal); R53.83 Other fatigue; R09.89 Other specified symptoms and signs involving the circulatory and respiratory systems; I25.10 Atherosclerotic heart disease of native coronary artery without angina pectoris; R06.83 Snoring; G47.00 Insomnia, unspecified; G47.10 Hypersomnia, unspecified; I48.91 Unspecified atrial fibrillation; I10 Essential (primary) hypertension; E66.9 Obesity, unspecified; Z68.41 Body mass index [BMI] 40.0-44.9, adult | CPT/HCPCS: 95810 ==

== ENCOUNTER 2019-08-09 06:58 | Inpatient (IN) | payer MEDICARE, OTHER ==
[2019-08-09 07:19] LABS: #Basophils 0.1 thou/uL (0.0-0.2); #Eosinphils 0.2 thou/uL (0.0-0.7); #Lymphocytes 2.4 thou/uL (1.20-3.40); #Monocytes 0.7 thou/uL (0.11-0.59); #Neutrophils 9.1 thou/uL (1.40-6.50); %Basophils 0.7 % (0.0-1.0); %Eosinophils 1.8 % (0.0-10.0); %Lymphocytes 19.2 % (21.0-51.0); %Monocytes 5.9 % (0.0-10.0); %Neutrophils 72.4 % (42.0-75.0); Hemoglobin 14.2 g/dL (12.0-16.0); Mean Corpuscular HGB CONC 32.9 g/dL (32.0-36.0); Mean Corpuscular Hemoglobin 28.2 pg (27.0-31.0); Mean Corpuscular Volume 85.6 fL (78.0-98.0); Mean Platelet Volume 8.9 fL (7.4-10.4); Platelet Count 312 thou/uL (130-400); RBC Distribution Width 13.5 % (11.5-14.5); Red Blood Cell (RBC) Count 5.03 mill/uL (4.20-5.40); White Blood Cell (WBC) Count 12.5 thou/uL (4.8-10.8)
[2019-08-09 07:29] LABS: INR-International Normal Ratio 1.2; PTT 31.3 SEC (22.9-36.1); Prothrombin Time 14.7 SEC (12.0-14.7)
[2019-08-09] MEDS ORDERED: Metoprolol Tartrate 5 MG/5 ML VIAL ONE ×2 (07:33→09:30)
[2019-08-09 07:44] LABS: ALT (SGPT) 14 U/L (8-55); AST (SGOT) 24 U/L (5-34); Albumin 4.4 g/dL (3.4-4.8); Alkaline Phosphatase 96 U/L (40-110); Anion Gap 16 mmol/L (10-20); BUN (Urea Nitrogen) 13 mg/dL (9.8-20.1); Bilirubin, Total 0.8 mg/dL (0.2-1.2); Calc. Creatinine Clearance 0 mL/min (70-130); Calcium 9.8 mg/dL (7.8-10.44); Carbon Dioxide 24 mmol/L (23-31); Chloride 107 mmol/L (98-107); Estimated GFR-MDRD 64; Globulin 3.7 g/dL (2.4-3.5); Glucose 108 mg/dL (80-115); Potassium 3.8 mmol/L (3.5-5.1); Protein, Total 8.1 g/dL (6.0-8.3); Sodium 143 mmol/L (136-145)
--- NOTE | 2019-08-09 08:26 | RAD ---
EXAM: CHEST ONE VIEW HISTORY: Chest pain COMPARISON: 04/06/2019 FINDINGS: Cardiac silhouette is magnified by projection and patient rotation to the right does appear at the up per limits normal to borderline enlarged. Pulmonary vasculature is within normal limits. There is suggestion of an irregular masslike opacity overlying the right hilar region. This is difficult furth er evaluate on this exam. Lungs are otherwise clear. No other interval change.. IMPRESSION: Irregular masslike opacity overlying the right hilar region. This could be related to overlying paren chymal opacity secondary to pneumonia or possibly secondary to neoplastic process. Further evaluation with CT thorax is recommended.
[2019-08-09] MEDS ORDERED: Ondansetron PF 4 MG/2 ML Vial IVP PRN (09:36)
--- NOTE | 2019-08-09 09:36 | PDOC.FPRHP ---
- History of Present Illness Chief Complaint: Palpitations History of Present Illness: Ms. Hardwick is a 68 yo F with pmh of Afib with prior ablations x2, hypothyroidism, and hypertension who presents for palpitations. She says she has been having problems for about a month. She was seen by Dr. Rios who thought it was likely related to her hypothyroid meds and sent her back to her PCP Dr. Melton for management. She was on Levothyroxine 125 mcg, but the dose was changed to 100 mcg. She says her heart rate is low like 70s in the pool. She checked her heart rate yesterday when she woke up and it was 111. She rechecked later in the day and her heart rate was in the 60s and blood presure was 117/80. Her heart rate was 55 when she got up this morning with a SBP in the 160s. She said her chest started feeling really weird though and she decide it was time to come to the hospital. ED Course: In the ED, she was given to 5 mg IVP of Lopressor and 1 L of NS. - Allergies/Adverse Reactions Allergies Allergy/AdvReac Type Severity Reaction Status Date / Time adhesive tape Allergy Verified 08/01/19 02:25 latex Allergy Verified 08/01/19 02:25 - Home Medications Medication Instructions Recorded Confirmed Type Lisinopril/Hydrochlorothiazide 0.5 tab PO BID 05/15/14 12/10/18 History [Prinizide] Potassium Gluconate 99 mg PO DAILY 05/15/14 12/10/18 History Pravastatin Sodium [Pravachol] 40 mg PO HS 05/15/14 12/10/18 History Thyroid,Pork [Nature-Throid] 105 mg PO QAM 02/29/16 12/10/18 History Apixaban [Eliquis] 5 mg PO BID 10/17/17 12/10/18 History Cholecalciferol (Vitamin D3) 8,000 units PO DAILY 10/17/17 12/10/18 History [Shn-M-Fvetnen] Cyanocobalamin (Vitamin B-12) 5,000 mcg PO DAILY 10/17/17 12/10/18 History [Vitamin B-12] - History PMHx: HTN, hypothyroidism, Afib PSHx: Tubal ligation, tonsillectomy, Atrial ablation (03/24, 12/29) FHx: Noncontributory Social: Smoked a couple of cigarettes a day over 40 years ago. Does not drink or use recreational drugs. - Review of Systems General: denies: fever/chills, weight/appetite/sleep changes Eyes: denies: vision changes ENT: denies: nasal congestion, rhinorrhea Respiratory: denies: cough, congestion, shortness of breath Cardiovascular: reports: palpitation. denies: chest pain, edema Gastrointestinal: denies: nausea, vomiting, diarrhea, constipation, abdominal pain Genitourinary: reports: dysuria, polyuria Skin: denies: rashes, lesions Musculoskeletal: denies: pain, tenderness Neurological: reports: other (dizziness). denies: numbness, weakness - Vital signs BP: 114/89 HR: 79 RR: 16 Tmax: 97.8 Pox: 97% on RA Wt: 107 kg - Physical Exam Constitutional: NAD, awake, alert and oriented HEENT: normocephalic and atraumatic, PERRLA, EOMI, conjunctiva clear, no scleral icterus, grossly normal hearing, MMM, oropharynx clear Neck: supple, trachea midline, no LAD Chest: no-tender to palpation Heart: normal S1/S2, no murmurs/rubs/gallops -Heart: irregular rate, tachycardic Lungs: CTAB, no respiratory distress, good air movement, no rales/rhonchi, no wheezing, no retractions Abdomen: soft, non-tender, bowel sounds present Musculoskeletal: normal structure, normal tone Neurological: no focal deficit, CN II-XII intact Skin: no rash/lesions, good turgor Heme/Lymphatic: no unusual bruising or bleeding, no purpura, no petechia Psychiatric: normal mood and affect FMR H&P: Results - Labs Result Diagrams: 08/09/19 07:07 08/09/19 07:07 Lab results: WBC 12.5 thou/uL (4.8-10.8) H 08/09/19 07:07 Hgb 14.2 g/dL (12.0-16.0) 08/09/19 07:07 Hct 43.1 % (36.0-47.0) 08/09/19 07:07 MCV 85.6 fL (78.0-98.0) 08/09/19 07:07 Plt Count 312 thou/uL (130-400) 08/09/19 07:07 Neutrophils % 72.4 % (42.0-75.0) 08/09/19 07:07 Sodium 143 mmol/L (136-145) 08/09/19 07:07 Potassium 3.8 mmol/L (3.5-5.1) 08/09/19 07:07 Chloride 107 mmol/L (98-107) 08/09/19 07:07 Carbon Dioxide 24 mmol/L (23-31) 08/09/19 07:07 BUN 13 mg/dL (9.8-20.1) 08/09/19 07:07 Creatinine 0.88 mg/dL (0.6-1.1) 08/09/19 07:07 Glucose 108 mg/dL (80-115) 08/09/19 07:07 Calcium 9.8 mg/dL (7.8-10.44) 08/09/19 07:07 Total Bilirubin 0.8 mg/dL (0.2-1.2) 08/09/19 07:07 AST 24 U/L (5-34) 08/09/19 07:07 ALT 14 U/L (8-55) 08/09/19 07:07 Alkaline Phosphatase 96 U/L (40-110) 08/09/19 07:07 B-Natriuretic Peptide 109.4 pg/mL (0-100) H 08/09/19 07:07 Serum Total Protein 8.1 g/dL (6.0-8.3) 08/09/19 07:07 Albumin 4.4 g/dL (3.4-4.8) 08/09/19 07:07 - Radiology Interpretation CT scan - chest Status: report reviewed by me (fixed diaphragmatic hernia, small right pulmonary lung nodule) Chest x-ray Status: report reviewed by me (Irregular right masslike hilar opacity) FMR H&P: A/P - Problem List (1) Flutter-fibrillation Current Visit: Yes Status: Acute Code(s): I48.91 - UNSPECIFIED ATRIAL FIBRILLATION; I48.92 - UNSPECIFIED ATRIAL FLUTTER (2) A-fib Current Visit: No Status: Acute Code(s): I48.91 - UNSPECIFIED ATRIAL FIBRILLATION (3) HLD (hyperlipidemia) Current Visit: No Status: Chronic Code(s): E78.5 - HYPERLIPIDEMIA, UNSPECIFIED (4) HTN (hypertension) Current Visit: No Status: Chronic Code(s): I10 - ESSENTIAL (PRIMARY) HYPERTENSION Qualifiers: Hypertension type: essential hypertension Qualified Code(s): I10 - Essential (primary) hypertension Comment: Stable (5) Hypothyroidism Current Visit: No Status: Chronic Code(s): E03.9 - HYPOTHYROIDISM, UNSPECIFIED Comment: Continue [place] Thyroid 97.5mg daily - Plan Ms. Hardwick is a 68 yo F with pmh of Afib with prior ablations x2, hypothyroidism, and hypertension who presents for palpitations. 1. Aflutter EKG shows 2:1 flutter * Given Lopressor 5mg IVP & 1L NS in ED * Consulted Cardiology 08/08, Dr. Pritchett, appreciate recs. * Will monitor on telemetry * Trop: 0.014 > < 0.01 * Will trend * D-Dimer: Neg 2. Afib Home Medication: Eliquis, Metoprolol- will continue * Hx of 2 prior Atrial Ablations (03/24, 12/29) 3. HTN BP: 170s/80s on exam * Home Medication: Lisinopril- will continue 4. HLD Home Medication: Pravastatin- will continue 5. Hyperthyroidism Home Medication: Levothyroxine- will continue * TSH: 0.4- wnl Code Status: Full Diet: HHLSo DVT PPx: Eliquis GI PPx: None PCP: Geronimo Dispo: Tele inpt for aflutter, LOS > 48H. Will await cardiology recommendations and treat blood pressures as needed. FMR H&P: Upper Level - Plan Date/Time: 08/09/19 0936 Lanre Escalona MD, have evaluated this patient and agree with findings/plan as outlined by design engineering intern resident. Pertinent changes/additions are listed here. Ernestina Hardwick is a 68 year old F with a PMH of A fib s/p ablation X2 currently on Eliquis, HTN, hypothyroidism who presented to the ED for palpitations. States that the palpitations have been present off and on over the last several weeks and she has noticed them becoming more consistent over the last couple days. States that she saw her Braid Cutter, Dr. Rios, and her HR was 120. He recommended that she follow up with her PCP. States that her PCP, Dr. Melton, has been titrating her levothyroxine over the last few weeks and recently decreased it from 125 mcg daily to 100 mcg daily. She denies any specific chest pain, dyspnea, cough, fever, chills, n/v, abdominal pain, dysuria, LE edema. In the ED, initially EKG showed sinus tachycardia in the 140s and she was given metoprolol 5 mg IVP and repeat showed A flutter with variable AV block. Vitals in the ED were BP 114/84, HR ranging from 90s to 120s , T 97.8, O2 sat 97% on RA, RR 16. CXR showed R hilar opacity. CT w contrast ordered in ED. Labs were WBC 12.5, Hg 14.2, BNP 109, D dimer < 0.27, Na 143, K 3.8, Cr 0.88. On exam, HEENT AT/NC, MMM, No JVD, Card irregularly irregular rhythm, tachycardic, no murmur, Lungs CTAB, abd soft NT/ND, no guarding or rigidity, no LE edema or cyanosis. Admitting patient in inpatient tele for a flutter with variable AV block. HR improved for a time in ED after metoprolol 5 mg IVP. ERMD giving second dose of metoprolol 5 mg IVP. Will consult cardiology. If HR remains elevated, will place patient on diltiazem gtt. Trending cardiac enzymes. Start lovenox for VTE ppx. Will review CT chest that was ordered for hilar opacity seen on CXR. Please see design engineering intern note above for full H&P, which I have reviewed and agree with. Addendum - Attending - Attending Attestation Date/Time: 08/09/19 8665 I personally evaluated the patient and discussed the management with Dr. Dong/ Nic I agree with the History, Examination, Assessment and Plan documented above with any addition or exceptions noted below. 68 yo WF known PMH Afib s/p multiple ablations. Presents with several month history of worsening palpitations that have been being addressed outpatient by her PCP and polisher apprentice. Stated worsened overnight and prompted her to come to ER. In ER found to be in Aflutter with 2:1 condution block which slowed to variable block after lopressor. Denied other complaints at time of my examination. Exam repeated by me and agree with above. Labs unremarkable. EKGs, CXR, and CT reviewed by me. Admit for A-flutter with RVR, will continue lopressor PRN and start on GTT if unable to control. Repeat TTE. Cardiology consulted. Currently on eliquis and will continue. Trend trop. May need additional ablation vs pacemaker placement. Inpatient, tele, >2 midnights.
[2019-08-09 10:18] LABS: Troponin I Less than 0.010 ng/mL (< 0.028)
--- NOTE | 2019-08-09 10:43 | CT ---
CT CHEST WITH IV CONTRAST: INDICATIONS: Question right hilar density seen on chest x-ray. FINDINGS: There is a pleural-based nodular density, measuring in the 6 mm range, seen anterolaterally in the ri ght mid lobe, best seen on image 33 of 70 axial and image 71 of 240 sagittal. There are two other small right middle lobe nodules, best seen on sagittal image 68 of 240, measuring in the 3 mm range. There is a 5 mm nodular density, posterior right lower lobe, near the pleural surface, seen best on i mage 47 of 70 axial. There is another 6 mm nodule seen at the posterior aspect of the right upper lobe, seen on image 22 o f 7. Review of the left lung reveals a 3 mm nodule in the left lower lobe, seen on axial image 40 of 70, w hich shows evidence of calcification. No other significant left lung nodule identified. Review of the mediastinum reveals nonspecific lymph nodes. A paratracheal lymph node in the right sup rahilar region measures 1.4 cm. There is a diaphragmatic hernia. A small portion of the stomach is seen above the diaphragmatic howev er there is a large fat-containing diaphragmatic hernia seen in the lower chest. The thoracic aorta is unremarkable. The pulmonary arteries are unremarkable with no evidence of proxi mal pulmonary embolus. Images through the upper abdomen are unremarkable. IMPRESSION: 1. No acute lung process. 2. Fixed diaphragmatic hernia which is largely fat-containing. 3. There are small pulmonary nodules seen in the right lung, which are not calcified, as described ab ove. Follow-up noncontrast chest CT is recommended in six months to confirm stability. CODE LN POS: [place]
[2019-08-09 11:37] VITALS: BMI 42.0
[2019-08-09] MEDS ORDERED: Iopamidol 370 76% 100 ML VIAL ONE (13:40)
[2019-08-09 13:53] LABS: Troponin I 0.011 ng/mL (< 0.028)
[2019-08-09] MEDS ORDERED: Apixaban 5 MG TAB PO SCH (21:00)
[2019-08-09] MEDS: Lisinopril/Hydrochlorothiazide 20 mg/12.5 mg Tablet PO SCH (21:10)
[2019-08-09] MEDS: Atorvastatin Calcium 10 MG TAB PO SCH (21:10)
[2019-08-09] MEDS: Apixaban 5 MG TAB PO SCH (21:11)
[2019-08-10] MEDS: Acetaminophen 325 MG TAB PO PRN ×2 (01:03→23:38)
[2019-08-10] MEDS: Levothyroxine Sodium 100 MCG TAB PO SCH (01:48)
[2019-08-10 01:50] LABS: Bacteria/HPF None Seen HPF (None Seen); Bilirubin Negative (Negative); Blood, Urine Negative (Negative); Clarity Clear (Clear); Glucose, Urine (Dipstick) Normal (Negative); Leukocyte Negative Leu/uL (Negative); Nitrite Negative (Negative); Protein, Urine (Dipstick) Negative (Neg-Trace); RBC/HPF 0-3 HPF (0-3); Squamous Epithelial 0-3 HPF (0-3); Urobilinogen Normal mg/dL (Less than 2); WBC/HPF 0-3 HPF (0-3)
[2019-08-10 04:55] LABS: #Basophils 0.1 thou/uL (0.0-0.2); #Eosinphils 0.2 thou/uL (0.0-0.7); #Lymphocytes 2.8 thou/uL (1.20-3.40); #Monocytes 0.8 thou/uL (0.11-0.59); #Neutrophils 7.6 thou/uL (1.40-6.50); %Basophils 0.5 % (0.0-1.0); %Eosinophils 2.1 % (0.0-10.0); %Lymphocytes 24.2 % (21.0-51.0); %Neutrophils 66.1 % (42.0-75.0); Mean Corpuscular HGB CONC 33.5 g/dL (32.0-36.0); Mean Corpuscular Hemoglobin 28.2 pg (27.0-31.0); Mean Platelet Volume 8.5 fL (7.4-10.4); Platelet Count 283 thou/uL (130-400); RBC Distribution Width 13.3 % (11.5-14.5); White Blood Cell (WBC) Count 11.6 thou/uL (4.8-10.8)
[2019-08-10 05:07] LABS: ALT (SGPT) 14 U/L (8-55); AST (SGOT) 21 U/L (5-34); Albumin 3.8 g/dL (3.4-4.8); Alkaline Phosphatase 81 U/L (40-110); Anion Gap 15 mmol/L (10-20); BUN (Urea Nitrogen) 11 mg/dL (9.8-20.1); Bilirubin, Total 0.7 mg/dL (0.2-1.2); Calc. Creatinine Clearance 115 mL/min (70-130); Calcium 9.3 mg/dL (7.8-10.44); Carbon Dioxide 20 mmol/L (23-31); Chloride 108 mmol/L (98-107); Estimated GFR-MDRD 70; Globulin 3.2 g/dL (2.4-3.5); Glucose 97 mg/dL (80-115); Potassium 3.5 mmol/L (3.5-5.1); Sodium 139 mmol/L (136-145)
--- NOTE | 2019-08-10 06:14 | PDOC.FM ---
- Subjective Subjective: Patient denies pain this AM. Has not felt her heart racing lately. No chest pain. Tolerating diet. No N/V. Overnight tele showed a-flutter w/ max HR to 130s. - Objective MAR Reviewed: Yes Vital Signs & Weight: Vital Signs (12 hours) Temp Pulse Resp BP BP Pulse Ox 08/10/19 01:47 98.2 F 106 H 22 H 152/88 H 96 08/09/19 23:33 98.1 F 125 H 16 133/90 97 08/09/19 21:10 87 151/98 H 08/09/19 21:09 87 151/98 H 08/09/19 19:18 97.9 F 81 16 173/94 H 99 Weight Weight 107.683 kg I&O: 08/08/19 08/09/19 08/10/19 06:59 06:59 06:59 Intake Total 720 Balance 720 Result Diagrams: 08/10/19 04:35 08/10/19 04:34 Phys Exam - Physical Examination Constitutional: NAD Respiratory: clear to auscultation bilateral Cardiovascular: no significant murmur (tachycardic rate) Gastrointestinal: soft, non-tender, no distention Psychiatric: normal affect, A&O x 3 Dx/Plan (1) AV block Code(s): I44.30 - UNSPECIFIED ATRIOVENTRICULAR BLOCK Status: Acute (2) A-fib Code(s): I48.91 - UNSPECIFIED ATRIAL FIBRILLATION Status: Acute (3) HTN (hypertension) Code(s): I10 - ESSENTIAL (PRIMARY) HYPERTENSION Status: Chronic Qualifiers: Hypertension type: essential hypertension Qualified Code(s): I10 - Essential (primary) hypertension (4) Hypothyroidism Code(s): E03.9 - HYPOTHYROIDISM, UNSPECIFIED Status: Chronic - Plan Plan: Ms. Hardwick is a 68 yo F with pmh of Afib with prior ablations x2, hypothyroidism, and hypertension who presents for palpitations. 1. Aflutter - cardiology consulted, appreciate recs. 2. Hx of Afib Home Medication: Eliquis, Metoprolol- will continue * Hx of 2 prior Atrial Ablations (03/24, 12/29) 3. HTN * Home Medication: Lisinopril- will continue 4. HLD Home Medication: Pravastatin- will continue 5. Hyperthyroidism Home Medication: Levothyroxine- will continue. Recently decreased by PCP. * TSH: 0.4- wnl Code Status: Full Diet: HHLSo DVT PPx: Eliquis GI PPx: None PCP: Geronimo Dispo: Tele inpt for aflutter, LOS > 48H. Will await cardiology recommendations. Addendum - Attending - Attending Attestation Date/Time: 08/10/19 6498 I personally evaluated the patient and discussed the management with Dr. Montalvo. I agree with the History, Examination, Assessment and Plan documented above with any addition or exceptions noted below. Patient here for persistent Aflutter despite ablation x2. She is feeling well currently. Awaiting cardiology/EP recs.
[2019-08-10] MEDS: Apixaban 5 MG TAB PO SCH ×2 (09:30→21:34)
[2019-08-10] MEDS: Lisinopril/Hydrochlorothiazide 20 mg/12.5 mg Tablet PO SCH ×2 (09:31→21:33)
[2019-08-10] MEDS: Cyanocobalamin (Vitamin B-12) 1,000 MCG TAB PO SCH (09:33)
--- NOTE | 2019-08-10 12:54 | CON ---
DATE OF CONSULTATION: HISTORY OF PRESENT ILLNESS: The patient is a 68-year-old woman with a long history of atrial fibrillation/flutter, who presented with recurrent palpitations. The patient has previously undergone radiofrequency ablation by Dr. Lee on two occasions. She also has a history of developing severe bradycardia,and nearly lost consciousness. The patient had previously been on flecainide. She was taken off this medication. The patient was most recently admitted in December with recurrent atrial fibrillation and converted with Cardizem. The patient states she has been compliant with her medication. She presents once again with recurrent palpitations. PAST MEDICAL HISTORY: 1. Atrial fibrillation. 2. Hypertension. 3. Thyroid disorder. PAST SURGICAL HISTORY: Tubal ligation and a tonsillectomy. MEDICATIONS: 1. Eliquis 5 b.i.d. 2. Synthroid 100 mcg daily. 3. Lisinopril/hydrochlorothiazide 20/12.5 half a tablet b.i.d. 4. Pravachol 40 at bedtime. 5. Metoprolol 50 b.i.d. ALLERGIES: LATEX, ADHESIVE. SOCIAL HISTORY: Nonsmoker. REVIEW OF SYSTEMS: Ten-point system otherwise unremarkable. No history of easy bruising or bleeding. PHYSICAL EXAMINATION: GENERAL: Obese woman, in no acute distress. VITAL SIGNS: Blood pressure of 125/83 and heart rate 120. NECK: No jugular venous distention. LUNGS: Clear to auscultation. HEART: Irregular rate and rhythm. Normal S1 and S2. ABDOMEN: Distended. EXTREMITIES: Showed no edema. LABORATORY DATA: Sodium 139, potassium 3.5, chloride 108, bicarbonate 20, BUN 11, and creatinine 0.82. Troponin less than 0.11. White blood cell count was 11.6, hemoglobin 13.0, hematocrit 38.7, and platelets are 283. IMPRESSION: 1. Atrial flutter typical. 2. Bradycardia. 3. Hypertension. 4. Obesity. This patient presents with recurrent atrial fibrillation/flutter. Her heart rate has been elevated. She does have a history of severe bradycardia. We will discuss with the cupboard builder, Dr. Bailey and she could undergo electrocardioversion. We will follow this patient with you through her hospitalization. Job ID: [id number] [facility]
--- NOTE | 2019-08-10 15:00 | CON ---
DATE OF CONSULTATION: HISTORY OF PRESENT ILLNESS: I am seeing Ms. Hardwick at our [facility] telemetry floor as an electrophysiology regional engagement consultant. Her problems are, 1. Recurrent atrial arrhythmias. a. History of persistent atrial fibrillation prompting an ablation procedure in 2006 and more recently in December 2018. b. She is admitted with recurrent atrial flutter. 2. History of bradycardia in the past with flecainide therapy. 3. History of hypertension. 4. History of preserved LVEF 55% to 60%, left atrial enlargement, mild AI, MR and TR on echo on 03/02/2016. 5. History of hypertension and hypercholesteremia. ALLERGIES: ADHESIVE TAPE AND LATEX. MEDICATIONS: At home included, 1. Potassium gluconate. 2. Lisinopril/hydrochlorothiazide __ twice a day. 3. Pravastatin 40 mg p.o. at bedtime. 4. Cyanocobalamin. 5. Vitamin B12. 6. Apixaban 5 mg twice a day. 7. Cholecalciferol. 8. Levothyroxine. 9. Metoprolol succinate 50 mg twice a day. SUBJECTIVE: Ms. Hardwick was admitted with recurrent palpitations. She is noticing palpitations for a couple of days. In the ER, she was noted to be in atrial flutter with variable AV conduction. She is admitted for rate control. Currently doing fair. Denies angina or CHF like symptoms. No stroke-like issues noted. No bleeding issues either. She has been compliant with her apixaban medication as well. REVIEW OF SYSTEMS: Rest of 12-point system is otherwise unremarkable. PAST MEDICAL HISTORY: As above. She has history of hypothyroidism. SOCIAL HISTORY: She used to smoke cigarettes, but quit 40 years ago. Denies EtOH or drug abuse. OBJECTIVE: VITAL SIGNS: Blood pressure is 148/93, heart rate 114, respiratory rate is 18, temperature 98.2 degrees Fahrenheit. GENERAL: This is an alert and oriented woman with slightly elevated BMI, in no apparent distress. NECK: Supple. Jugular veins are not distended. CHEST: Coarse without crackles. Heart sounds are irregularly irregular. S1 and S2 are variable. No murmur or gallop. ABDOMEN: Benign. Bowel sounds positive. EXTREMITIES: Lower extremities without edema, clubbing, or cyanosis. Pulses are adequate. NEUROLOGIC: The patient is nonfocal. MUSCULOSKELETAL: Without joint swelling or deformity. SKIN: Without rash. DATABASE: EKG is reviewed revealing an atrial flutter with variable AV conductions. Cannot rule out typical isthmus dependence in morphology. LABORATORY DATA: White cell count 11.6, hemoglobin 13, platelet count is 283. Sodium 139, potassium 3.5, BUN is 11, and creatinine 0.82. Troponins are negative x3. Chest x-ray shows mass-like opacity in the right hilar region. Subsequent CT scan shows no acute pulmonary processes and small pulmonary nodules. Treated diaphragmatic hernia is noted. ASSESSMENT AND PLAN: Ms. Hardwick is a 68-year-old woman with prior history of recurrent atrial arrhythmias, prior ablations, most recently in December 2018, after which she maintained sinus rhythm. She had extensive atrial ablation at that time including isolating posterior wall left-sided veins, which were found re-connected and also coronary sinus and cavotricuspid isthmus were ablated. There is no particular reason foubd for her recurrence. It would be reasonable to consider resuming her flecainide and consider cardioversion if no chemical conversion occurs. She has been well anticoagulated without interruption with Eliquis. She does have some history of higher dose of flecainide. It is reasonable to monitor her after cardioversion. Should there be significant bradycardia occur, pacemaker implantation could be an option. Long-term after resolution of the COVID epidemic, redo ablations also could be considered if the rhythm issues recurring symptomatically. Risks and benefits of this are discussed. Thank you again for allowing me to participate in the care of this patient. Job ID: [id number] [facility]
[2019-08-10 15:05] LABS: Hemoglobin 13.9 g/dL (12.0-16.0); Platelet Count 316 thou/uL (130-400)
[2019-08-10] MEDS: Flecainide 50 MG TAB PO SCH (17:28)
[2019-08-10] MEDS: Atorvastatin Calcium 10 MG TAB PO SCH (21:34)
[2019-08-11] MEDS ORDERED: Metoprolol Tartrate 5 MG/5 ML VIAL IVP SCH (01:00)
--- NOTE | 2019-08-11 06:06 | PDOC.FM ---
- Subjective Subjective: Had episode overnight of HR to 150s, 5mg IV metoprolol given. Overnight telemetry otherwise in a-flutter. Current HR is 74. Pt without complaints today: no CP. Consent signed for electrical cardioversion today. - Objective MAR Reviewed: Yes Vital Signs & Weight: Vital Signs (12 hours) Temp Pulse Resp BP Pulse Ox 08/11/19 03:42 97.6 F 122 H 18 124/85 98 08/11/19 01:10 127/77 08/11/19 01:05 129/74 08/10/19 21:33 66 08/10/19 19:32 97.9 F 66 20 124/76 95 Weight Weight 107.683 kg I&O: 08/09/19 08/10/19 08/11/19 06:59 06:59 06:59 Intake Total 1080 600 Output Total 1120 Balance -40 600 Result Diagrams: 08/10/19 14:31 08/10/19 14:31 Phys Exam - Physical Examination Constitutional: NAD Respiratory: no wheezing, clear to auscultation bilateral Cardiovascular: no significant murmur irregular rhythm, normal rate Gastrointestinal: soft, non-tender, positive bowel sounds Musculoskeletal: edema present (trace pitting b/l) Psychiatric: A&O x 3 Dx/Plan (1) AV block Code(s): I44.30 - UNSPECIFIED ATRIOVENTRICULAR BLOCK Status: Acute (2) A-fib Code(s): I48.91 - UNSPECIFIED ATRIAL FIBRILLATION Status: Acute (3) HTN (hypertension) Code(s): I10 - ESSENTIAL (PRIMARY) HYPERTENSION Status: Chronic Qualifiers: Hypertension type: essential hypertension Qualified Code(s): I10 - Essential (primary) hypertension (4) Hypothyroidism Code(s): E03.9 - HYPOTHYROIDISM, UNSPECIFIED Status: Chronic - Plan Plan: Ms. Hardwick is a 68 yo F with pmh of Afib with prior ablations x2, hypothyroidism, and hypertension who presents for palpitations. 1. Aflutter w/ Variable AV Block - cardiology consulted, appreciate recs. - EP consulted, appreciate recs. Started flecainide. - Orders by EP placed for electrical cardioversion today. 2. Hx of Afib Home Medication: Eliquis, Metoprolol- will continue * Hx of 2 prior Atrial Ablations (03/24, 8/19) 3. HTN * Home Medication: Lisinopril- will continue 4. HLD Home Medication: Pravastatin- will continue 5. Hypothyroidism Home Medication: Levothyroxine- will continue. Recently decreased by PCP. * TSH: 0.4- wnl Code Status: Full Diet: NPO for cardioversion. DVT PPx: Eliquis GI PPx: None PCP: Geronimo Dispo: Tele inpt for aflutter, LOS > 48H. Addendum - Attending - Attending Attestation Date/Time: 08/11/19 3830 I personally evaluated the patient and discussed the management with Dr. Montalvo. I agree with the History, Examination, Assessment and Plan documented above with any addition or exceptions noted below.
[2019-08-11] MEDS: Levothyroxine Sodium 100 MCG TAB PO SCH (06:24)
[2019-08-11] MEDS: Flecainide 50 MG TAB PO SCH (06:24)
[2019-08-11] MEDS: Cyanocobalamin (Vitamin B-12) 1,000 MCG TAB PO SCH (08:28)
[2019-08-11] MEDS: Lisinopril/Hydrochlorothiazide 20 mg/12.5 mg Tablet PO SCH (08:30)
[2019-08-11] MEDS ORDERED: Potassium Chloride 10 MEQ TAB PO SCH (09:00)
[2019-08-11] MEDS: Apixaban 5 MG TAB PO SCH (09:14)
--- NOTE | 2019-08-11 10:04 | PDOC.EP ---
- Subjective Date: 08/11/19 Time: 10:03 Interval History: follow up for atrial arrhythmia management. She voices no complaints today except some nervousness about the upcoming CV this AM. - Review of Systems Constitutional: denies: chills, fever, malaise, sweats, weakness, other Respiratory: denies: cough, dry, hemoptysis, pleuritic pain, shortness of breath , SOB with excertion, sputum, wheezing Cardiology: denies: chest pain, edema, heart racing, light headedness, passing out Gastrointestinal: denies: abdominal pain, constipation, diarrhea, hematochezia Musculoskeletal: denies: unstable gait, falls, neck pain - Objective Allergies/Adverse Reactions: Allergies Allergy/AdvReac Type Severity Reaction Status Date / Time adhesive tape Allergy Verified 08/01/19 02:25 latex Allergy Verified 08/01/19 02:25 Current Medications Acetaminophen (Tylenol) 650 mg PO Q4H PRN PRN Reason: Headache/Fever/Mild Pain (1-3) Last Admin: 08/10/19 23:38 Dose: 650 mg Apixaban (Eliquis) 5 mg PO BID [facility] Last Admin: 08/11/19 09:14 Dose: 5 mg Atorvastatin Calcium (Lipitor) 10 mg PO HS [facility] Last Admin: 08/10/19 21:34 Dose: 10 mg Cholecalciferol (Vitamin D3) 8,000 units PO DAILY [facility] Last Admin: 08/11/19 08:31 Dose: 8,000 units Cyanocobalamin (Vitamin B-12) 5,000 mcg PO DAILY [facility] Last Admin: 08/11/19 08:28 Dose: 5,000 mcg Flecainide Acetate (Tambocor) 50 mg PO 0600,1800 [facility] Last Admin: 08/11/19 06:24 Dose: 50 mg Lisinopril/HCTZ (Prinizide 20-12.5) 0.5 tab PO BID [facility] Last Admin: 08/11/19 08:30 Dose: 0.5 tab Levothyroxine Sodium (Synthroid) 100 mcg PO 0600 [facility] Last Admin: 08/11/19 06:24 Dose: 100 mcg Potassium Chloride (Klor-Con 10) 5 meq PO DAILY [facility] Last Admin: 08/11/19 08:35 Dose: 5 meq Vital Signs & Weight: Vital Signs Temp Pulse Resp BP Pulse Ox 08/11/19 07:25 97.7 F 67 16 126/73 97 08/11/19 03:42 97.6 F 122 H 18 124/85 98 08/11/19 01:10 127/77 08/11/19 01:05 129/74 Weight 237 lb 6.4 oz I/O: I/O 08/10/19 08/11/19 08/12/19 06:59 06:59 06:59 Intake Total 1080 600 Output Total 1120 Balance -40 600 - Quality Measures Condition: Atrial Fibrillation/Flutter (hx or current) CV meds: Eliquis: Yes - Physical Exam General: alert & oriented x3, appears well, no apparent distress, speech clear, affect appropriate HEENT: mucus membranes moist, normocephaly Neck: supple neck, midline trachea, no JVD/HJR Cardiology: no murmur, PMI nondisplaced, irregularly irregular Lungs: clear to auscultation, normal breath sounds, no wheeze, rales, rhonchi Neurology: cranial nerve 2-12 intact, sensory function intact, no lateralizing findings Abdomen: unremarkable, active bowel sounds, no pulsations/bruits Extremities: dry, strong pulses, warm - Labs Result Diagrams: 08/10/19 14:31 08/10/19 14:31 - EKG Interpretation EKG Method: Telemetry EKG shows: Atypical atrial flutter - Assessment/Plan Assessment/Plan: 1. Persistent atrial fibrillation/flutter - s/p two prior extensive left atrial ablations 2006 and Dec 2018. including CTI flutter ablation - on eliquis for OAC - AAD with low dose flecainide 50mg BID - late recurrence, no obvious provocation 2. Tendency for bradycardia - occurred with higher dose flecainide -AV paula meds stopped 3. QT prolongation - avoid QT prolonging agents - continue to monitor - avoid bradycardia She is NPO for DCCV with Dr Rios this AM. Will need to watch for bradycardia post CV although her AV paula meds have been stopped. If CV is successful, continue flecainide at current dose. Will need to use rate controlling meds with caution and monitor her QT/QTc. Will be able to better assess her QT on a post CV 12 lead EKG later today
[2019-08-11] MEDS ORDERED: PROPOFOL 20 ML ONE (11:58)
--- NOTE | 2019-08-11 15:08 | OP ---
DATE OF PROCEDURE: 08/11/2019 PROCEDURE PERFORMED: Electrical cardioversion. INDICATION: Typical atrial flutter. DESCRIPTION OF PROCEDURE: The patient was taken to the PACU. The patient was sedated by Anesthesiology. The patient was shocked with 50 joules of synchronized electricity. The patient converted to normal sinus rhythm. IMPRESSION: Successful electrical cardioversion. Job ID: [id number] MTDD
[2019-08-11 15:11] VITALS: BP 130/67; TEMP 97.8
--- NOTE | 2019-08-12 12:21 | DIS ---
DATE OF ADMISSION: 08/09/2019 DATE OF DISCHARGE: 08/11/2019 RESIDENT: Kyara Montalvo MD DISCHARGE ATTENDING: Marco Stephens MD CONSULTS: Cardiology, Electrophysiology. PROCEDURES: 1. Electrical cardioversion on 08/11/2019, converted to normal sinus rhythm. 2. Chest x-ray. Impression: masslike opacity overlying the right hilar region. Further evaluation with CT of the thorax. 3. Chest CT. Impression: No acute lung process, fixed diaphragmatic hernia, largely fat containing, small pulmonary nodules in the right lung, not calcified , a followup noncontrast chest CT recommended in 6 months to confirm stability. PRIMARY DIAGNOSES: 1. Atrial flutter with variable atrioventricular block. 2. Prior history of atrial fibrillation. SECONDARY DIAGNOSES: Hypertension, hyperlipidemia, hypothyroidism. DISCHARGE MEDICATIONS: 1. Flecainide 50 mg p.o. twice daily. 2. Metoprolol succinate 25 mg p.o. daily. 3. Potassium gluconate 99 mg p.o. daily. 4. Lisinopril/hydrochlorothiazide 0.5 tablets p.o. twice daily. 5. Pravastatin 40 mg p.o. at bedtime. 6. Vitamin B12 of 5000 mcg p.o. daily. 7. Eliquis 5 mg p.o. twice daily. 8. Vitamin D3 of 8000 units p.o. daily. 9. Levothyroxine 100 mcg p.o. daily. DISCONTINUED MEDICATIONS: Metoprolol succinate 50 mg p.o. twice daily. HISTORY OF PRESENT ILLNESS AND HOSPITAL COURSE: Ernestina Hardwick is a 68-year- old female, who presented for chief complaint of heart palpitations. She said that she has been having problems with this for about the past month. She sees Dr. Rios as an outpatient, along with her PCP. They thought her levothyroxine dosage could be high and may have been causing her palpitations. Her primary care provider, Dr. Melton, had recently decreased her levothyroxine from 125 mcg to 100 mcg. The patient said her heart rate, however, was in the 110s on the day of admission. In the emergency room, she was given 5 mg of IV push of Lopressor and 1 L of normal saline. She was found to be in atrial flutter with variable AV block. Cardiology was consulted. Since the patient had history of 2 prior ablations with the most recent being in December of 2018, Cardiology asked Dr. Bailey to see the patient. They started flecainide in hopes for chemical cardioversion. However, they rapidly decided to pursue an electrical cardioversion. The patient had been on her Eliquis with uninterrupted anticoagulation for the past month. Electrical cardioversion was successful, and the patient was feeling well on the day of discharge. DISPOSITION: Stable. DISCHARGE: LOCATION: Home. DIET: Heart healthy. ACTIVITY: As tolerated. FOLLOWUP: Follow up with primary care provider, Dr. Melton, either by phone or virtual visit in the next 7 days. Recommend outpatient noncontrast CT in 6 months to follow lung nodules seen on imaging here. Follow up with breakfast hostess, Dr. Rios and with Dr. Bailey. Job ID: [id number] [facility] CENTERWalter
== END 2019-08-11 16:43 | disposition home or self-care (01) | DRG 309 ==
LOC: ERS 06:58 → 2SW 11:00 → OBSVTOIN 11:00 → 2NO 08-10 17:59
PROVIDERS: ADMIT Family Medicine; ATTEND Family Medicine
PROC: 5A2204Z Restoration of Cardiac Rhythm, Single (ICD-10-PCS; principal; 2019-08-11)
DX: I48.92 Unspecified atrial flutter (principal); Z68.41 Body mass index [BMI] 40.0-44.9, adult; I44.30 Unspecified atrioventricular block; I10 Essential (primary) hypertension; E03.9 Hypothyroidism, unspecified; E78.5 Hyperlipidemia, unspecified; E05.90 Thyrotoxicosis, unspecified without thyrotoxic crisis or storm; E78.00 Pure hypercholesterolemia, unspecified; E66.9 Obesity, unspecified; Z88.8 Allergy status to other drugs, medicaments and biological substances; Z91.048 Other nonmedicinal substance allergy status; Z98.51 Tubal ligation status; F17.210 Nicotine dependence, cigarettes, uncomplicated; Z79.01 Long term (current) use of anticoagulants; I48.19 Other persistent atrial fibrillation; I45.81 Long QT syndrome
CPT/HCPCS: 36415; 71045; 71260; 80053; 81001; 83735; 83880; 84443; 84484; 85025; 85379; 85610; 85730; 92960; 93005; 93010; 94760; J2704; Q9967

== ENCOUNTER 2019-09-11 21:35 | Emergency (ER) | payer MEDICARE, OTHER ==
[2019-09-11 22:08] LABS: #Basophils 0.1 thou/uL (0.0-0.2); #Eosinphils 0.3 thou/uL (0.0-0.7); #Lymphocytes 2.7 thou/uL (1.20-3.40); #Monocytes 0.7 thou/uL (0.11-0.59); #Neutrophils 8.4 thou/uL (1.40-6.50); %Basophils 0.6 % (0.0-1.0); %Eosinophils 2.8 % (0.0-10.0); %Lymphocytes 21.9 % (21.0-51.0); %Neutrophils 68.8 % (42.0-75.0); Hemoglobin 13.3 g/dL (12.0-16.0); Mean Corpuscular HGB CONC 31.8 g/dL (32.0-36.0); Mean Corpuscular Hemoglobin 28.1 pg (27.0-31.0); Mean Corpuscular Volume 88.4 fL (78.0-98.0); Mean Platelet Volume 8.5 fL (7.4-10.4); Platelet Count 311 thou/uL (130-400); RBC Distribution Width 13.7 % (11.5-14.5); Red Blood Cell (RBC) Count 4.75 mill/uL (4.20-5.40); White Blood Cell (WBC) Count 12.2 thou/uL (4.8-10.8)
[2019-09-11 22:18] LABS: Bilirubin Negative (Negative); Blood, Urine Negative (Negative); Clarity Clear (Clear); Glucose, Urine (Dipstick) Normal (Negative); Leukocyte Negative Leu/uL (Negative); Nitrite Negative (Negative); Protein, Urine (Dipstick) Negative (Neg-Trace); Urobilinogen Normal mg/dL (Less than 2)
[2019-09-11 22:32] LABS: ALT (SGPT) 13 U/L (8-55); AST (SGOT) 21 U/L (5-34); Albumin 4.3 g/dL (3.4-4.8); Alkaline Phosphatase 107 U/L (40-110); Anion Gap 13 mmol/L (10-20); BUN (Urea Nitrogen) 16 mg/dL (9.8-20.1); Bilirubin, Total 0.4 mg/dL (0.2-1.2); Calc. Creatinine Clearance 0 mL/min (70-130); Calcium 9.8 mg/dL (7.8-10.44); Carbon Dioxide 27 mmol/L (23-31); Chloride 104 mmol/L (98-107); Estimated GFR-MDRD 51; Globulin 3.6 g/dL (2.4-3.5); Glucose 125 mg/dL (80-115); Potassium 3.4 mmol/L (3.5-5.1); Protein, Total 7.9 g/dL (6.0-8.3); Sodium 141 mmol/L (136-145)
--- NOTE | 2019-09-11 22:45 | RAD ---
XR Chest 1 View Portable HISTORY: Tachycardia, hypertension COMPARISON: 08/09/2019 FINDINGS: The heart size is normal. The aorta is tortuous. The lungs are well expanded without focal areas of consolidation, pneumothorax or pleural effusions. Density in the left lower medial thorax corresponds to the diaphragmatic hernia noted on the CT scan. IMPRESSION: No radiographic evidence of acute cardiopulmonary process.
--- NOTE | 2019-09-24 16:11 | EKG ---
Test Reason : Blood Pressure : / mmHG Vent. Rate : 075 BPM Atrial Rate : 075 BPM P-R Int : 236 ms QRS Dur : 082 ms QT Int : 402 ms P-R-T Axes : 059 -07 -13 degrees QTc Int : 448 ms Sinus rhythm with 1st degree A-V block with Premature supraventricular complexes Minimal voltage criteria for LVH, may be normal variant Septal infarct , age undetermined Abnormal ECG Confirmed by APOLONIA MORGAN ([id number]), food editor ERNESTINA TAYLOR ([id number]) on 09/24/2019 4:10:45 PM Referred By: Confirmed By:APOLONIA MORGAN
== END 2019-09-11 22:35 | disposition home or self-care (01) ==
LOC: ERS 21:35
DX: R00.2 Palpitations (principal); I48.91 Unspecified atrial fibrillation; E03.9 Hypothyroidism, unspecified; I10 Essential (primary) hypertension; I25.10 Atherosclerotic heart disease of native coronary artery without angina pectoris; Z87.891 Personal history of nicotine dependence; Z79.899 Other long term (current) drug therapy
CPT/HCPCS: 36415; 71045; 80053; 81003; 84443; 84484; 85025; 93005; 94760

== ENCOUNTER 2019-10-11 14:05 | Inpatient (IN) | payer MEDICARE, OTHER ==
--- NOTE | 2019-10-11 15:07 | RAD ---
PA AND LATERAL CHEST: History: Chest pain, atrial fibrillation, cardioversion one week ago. Comparison: 09-11-2019 FINDINGS: The heart size is mildly enlarged. The aorta is tortuous. The left hiatal hernia noted on CT of 020 is again seen in the retrocardiac region. The lungs are well expanded without lobar consolidation , pneumothoraces or pleural effusions. There is a calcified granuloma in the left lower lobe. There a re degenerative changes in the spine. IMPRESSION: No acute process. POS: OFF
[2019-10-11 15:22] LABS: #Basophils 0.1 thou/uL (0.0-0.2); #Eosinphils 0.2 thou/uL (0.0-0.7); #Monocytes 0.7 thou/uL (0.11-0.59); #Neutrophils 7.3 thou/uL (1.40-6.50); %Basophils 0.7 % (0.0-1.0); %Eosinophils 2.2 % (0.0-10.0); %Lymphocytes 19.3 % (21.0-51.0); %Monocytes 6.6 % (0.0-10.0); %Neutrophils 71.2 % (42.0-75.0); Hemoglobin 14.1 g/dL (12.0-16.0); Mean Corpuscular HGB CONC 32.3 g/dL (32.0-36.0); Mean Corpuscular Hemoglobin 28.6 pg (27.0-31.0); Mean Corpuscular Volume 88.6 fL (78.0-98.0); Mean Platelet Volume 8.7 fL (7.4-10.4); Platelet Count 311 thou/uL (130-400); RBC Distribution Width 13.6 % (11.5-14.5); Red Blood Cell (RBC) Count 4.94 mill/uL (4.20-5.40); White Blood Cell (WBC) Count 10.3 thou/uL (4.8-10.8)
[2019-10-11 15:44] LABS: ALT (SGPT) 13 U/L (8-55); AST (SGOT) 19 U/L (5-34); Albumin 4.3 g/dL (3.4-4.8); Alkaline Phosphatase 98 U/L (40-110); Anion Gap 13 mmol/L (10-20); BUN (Urea Nitrogen) 10 mg/dL (9.8-20.1); Bilirubin, Total 0.5 mg/dL (0.2-1.2); CK (CPK) 54 U/L (29-168); Calc. Creatinine Clearance 0 mL/min (70-130); Calcium 9.7 mg/dL (7.8-10.44); Carbon Dioxide 28 mmol/L (23-31); Chloride 105 mmol/L (98-107); Estimated GFR-MDRD 64; Globulin 3.5 g/dL (2.4-3.5); Glucose 98 mg/dL (80-115); Potassium 3.6 mmol/L (3.5-5.1); Protein, Total 7.8 g/dL (6.0-8.3); Sodium 142 mmol/L (136-145)
--- NOTE | 2019-10-11 16:49 | PDOC.FPRHP ---
- History of Present Illness Chief Complaint: Palpitations History of Present Illness: 68 year old female with past medical history of atrial fibrillation presented to the emergency department with complaints of palpitations. Patient stated that this morning upon waking she was experiencing fluttering in her chest. She has had this in the past when her heart was fibrilating so she checked her pulse. She stated that throughout the day there were instances when her heart rate got very high up into the 140s. She states that she has had two ablations, one in 2011 and one in December of last year. She also had an electrical cardioversion 2 months ago. Since then she has been doing well with good rhythm control until today. Patient states that when her heart rate gets high she gets dizzy with ambulation. Patient states that the fluttering in her chest is uncomfortable but is not painful. She denies any shortness of breath, nausea, radiating discomfort, or near syncope. The patient takes metoprolol and flecainide for her Rhythm control. She titrates her own metoprolol based on her rate. She is prescribed 50 mg twice-daily but only took 25 mg this morning. She takes Eliquis for stroke prevention. ED Course: EKG in ED found pt to be in A-flutter - Allergies/Adverse Reactions Allergies Allergy/AdvReac Type Severity Reaction Status Date / Time adhesive tape Allergy Verified 10/11/19 19:07 latex Allergy Verified 10/11/19 19:07 - Home Medications Medication Instructions Recorded Confirmed Type Lisinopril/Hydrochlorothiazide 0.5 tab PO BID 05/15/14 10/11/19 History [Prinizide] Potassium Gluconate 99 mg PO DAILY 05/15/14 10/11/19 History Pravastatin Sodium [Pravachol] 40 mg PO HS 05/15/14 10/11/19 History Apixaban [Eliquis] 5 mg PO BID 10/17/17 10/11/19 History Cholecalciferol (Vitamin D3) 8,000 units PO DAILY 10/17/17 10/11/19 History [[id number]] Cyanocobalamin (Vitamin B-12) 5,000 mcg PO DAILY 10/17/17 10/11/19 History [Vitamin B-12] Levothyroxine Sodium [Synthroid] 100 mcg PO DAILY 08/09/19 10/11/19 History Flecainide [Tambocor] 50 mg PO BID #60 tab 08/11/19 10/11/19 Rx Metoprolol Succinate 25 mg PO BID 10/11/19 10/11/19 History - History PMHx: HTN, hypothyroidism, Afib PSHx: Tubal ligation, tonsillectomy, Atrial ablation (03/24, 12/29) FHx: Noncontributory Social: Smoked a couple of cigarettes a day over 40 years ago. Does not drink or use recreational drugs. - Review of Systems General: denies: fever/chills, weight/appetite/sleep changes Eyes: denies: vision changes, other ENT: denies: nasal congestion, rhinorrhea Respiratory: denies: cough, shortness of breath Cardiovascular: reports: palpitation. denies: chest pain, edema Gastrointestinal: denies: nausea, vomiting, diarrhea Genitourinary: denies: dysuria, polyuria Skin: denies: rashes, lesions Musculoskeletal: denies: pain, tenderness Neurological: denies: numbness, weakness Psychological: denies: anxiety, depression - Vital signs BP: 121/66, Pulse: 80, Resp: 20, Pain: 0, O2 sat: 98 on (Room Air), Wt: 107kg - Physical Exam Constitutional: NAD, awake, alert and oriented, well developed HEENT: EOMI, grossly normal vision, MMM Neck: FROM, no JVD Heart: normal S1/S2 -Heart: Irregularly irregular, normal rate Lungs: CTAB, no respiratory distress Abdomen: soft, non-tender, bowel sounds present Musculoskeletal: normal structure, normal tone Neurological: no focal deficit, normal sensation Skin: no rash/lesions, good turgor Heme/Lymphatic: no unusual bruising or bleeding, no purpura Psychiatric: normal mood and affect, good judgment and insight, intact recent and remote memory FMR H&P: Results - Labs Result Diagrams: 10/11/19 15:00 10/11/19 15:00 Lab results: WBC 10.3 thou/uL (4.8-10.8) 10/11/19 15:00 Hgb 14.1 g/dL (12.0-16.0) 10/11/19 15:00 Hct 43.7 % (36.0-47.0) 10/11/19 15:00 MCV 88.6 fL (78.0-98.0) 10/11/19 15:00 Plt Count 311 thou/uL (130-400) 10/11/19 15:00 Neutrophils % 71.2 % (42.0-75.0) 10/11/19 15:00 Sodium 142 mmol/L (136-145) 10/11/19 15:00 Potassium 3.6 mmol/L (3.5-5.1) 10/11/19 15:00 Chloride 105 mmol/L (98-107) 10/11/19 15:00 Carbon Dioxide 28 mmol/L (23-31) 10/11/19 15:00 BUN 10 mg/dL (9.8-20.1) 10/11/19 15:00 Creatinine 0.88 mg/dL (0.6-1.1) 10/11/19 15:00 Glucose 98 mg/dL (80-115) 10/11/19 15:00 Calcium 9.7 mg/dL (7.8-10.44) 10/11/19 15:00 Total Bilirubin 0.5 mg/dL (0.2-1.2) 10/11/19 15:00 AST 19 U/L (5-34) 10/11/19 15:00 ALT 13 U/L (8-55) 10/11/19 15:00 Alkaline Phosphatase 98 U/L (40-110) 10/11/19 15:00 Creatine Kinase 54 U/L (29-168) 10/11/19 15:00 Serum Total Protein 7.8 g/dL (6.0-8.3) 10/11/19 15:00 Albumin 4.3 g/dL (3.4-4.8) 10/11/19 15:00 - EKG Interpretation EK lead: Aflutter with normal rate - Radiology Interpretation Chest x-ray Status: report reviewed by me (No acute process) FMR H&P: A/P - Plan Atrial Flutter/Fib - status post ablation x 2 and cardioversion x1 - EKG showing flutter in ED with paroxysmal episodes of fib - Rate controlled currently - Resume home metoprolol and flecainide at full dose - Admit to tele for rhythm monitoring - Consult cards in a.m. - may need EP involvement HTN - Controlled currently - Resume HCTZ and lisinopril Hypothyroidism - Resume levothyroxine - TSH in a.m. - 2 mo ago was WNL Diet: HH IVF: SL VTE: Eliquis Code: Full Dispo: Admit to tele obs. ELOS <48hr PCP: Dr. Melton FMR H&P: Upper Level - Plan Date/Time: 10/11/19 9785 I, Perfecto Villegas DO, have evaluated this patient and agree with findings/plan as outlined by bakery pastry internship resident. Pertinent changes/additions are listed here. This is a 68 yo female with a pmh of atrial fibrillation with multiple ablations and a recent cardioversion who presents to the ED with a cc of mild dizziness, lightheadedness, and palpitations. She states the symptoms started this morning. She denies chest pain, SOB, Fever, chills, nausea, vomiting. She states that she sometimes takes a half dose of her medications if her HR is lower and that is what she did today. Objective: Vitals: BP 121/66, HR 80, RR 20, Temp: 97.7, SpO2 98% ra General: NAD HEENT: MMM, AT/NC Cardio: regular rate, irregular rhythm, no murmurs Respiratory: CTAB Extremities: No swelling, pulses present A/P Atrial flutter with variable block -Admit to tele obs -Continue home flecanide, metoprolol, and eliquis -Consult cardiology in the AM -Trop neg, EKG shows atrial flutter, CXR normal Other chronic conditions per bakery pastry internship note Code: Full Prophylaxis: Eliquis Family: at bedside, discussed plan Fluids: SL Diet: HH Disposition: DC in 1-2 days PCP: Dr. Melton Addendum - Attending - Attending Attestation Date/Time: 10/11/19 8110 I personally evaluated the patient and discussed the management with Dr. Jacobs I agree with the History, Examination, Assessment and Plan documented above with any addition or exceptions noted below -68 yo female with h/o atrial fibrillation with multiple ablations and a recent cardioversion, HTN and hypothyroidism who presents to the ED with a c/o of mild dizziness, lightheadedness, and palpitations. She states the symptoms started this morning. She denies chest pain, SOB, Fever, chills, nausea, vomiting. States that since her cardioversion she has felt well and has not had any palpitations. PMH/PSH/Meds/SH reviewed and agree with resident's documentation. Afebrile VSS. Exam repeated by me and agree with resident's findings. EKG- Aflutter with rate in 70s. Labs: trop I= 0.010, 0.013, 0.018. A/P: 1) Recurrent a-flutter- rate controlled; will place in obs and consult cardiology in AM. Will check TSH and Mg.
[2019-10-11 18:33] LABS: Troponin I 0.013 ng/mL (< 0.028)
[2019-10-11 18:46] VITALS: BMI 39.9
[2019-10-11] MEDS ORDERED: Pravastatin Sodium 40 MG TAB PO SCH (21:00)
[2019-10-11] MEDS: Lisinopril/Hydrochlorothiazide 20 mg/12.5 mg Tablet PO SCH (21:37)
[2019-10-11] MEDS: Flecainide 50 MG TAB PO SCH (21:37)
[2019-10-11] MEDS: Apixaban 5 MG TAB PO SCH (21:38)
[2019-10-11] MEDS: Atorvastatin Calcium 10 MG TAB PO SCH (21:38)
[2019-10-11 22:01] LABS: Troponin I 0.018 ng/mL (< 0.028)
[2019-10-12] MEDS: Acetaminophen 325 MG TAB PO PRN ×2 (00:33→10:17)
[2019-10-12 04:44] LABS: #Basophils 0.1 thou/uL (0.0-0.2); #Eosinphils 0.3 thou/uL (0.0-0.7); #Lymphocytes 2.9 thou/uL (1.20-3.40); #Monocytes 0.9 thou/uL (0.11-0.59); %Basophils 0.6 % (0.0-1.0); %Eosinophils 2.3 % (0.0-10.0); %Monocytes 7.6 % (0.0-10.0); %Neutrophils 65.6 % (42.0-75.0); Hemoglobin 13.7 g/dL (12.0-16.0); Mean Corpuscular HGB CONC 31.7 g/dL (32.0-36.0); Mean Corpuscular Hemoglobin 28.3 pg (27.0-31.0); Mean Corpuscular Volume 89.2 fL (78.0-98.0); Mean Platelet Volume 8.4 fL (7.4-10.4); Platelet Count 303 thou/uL (130-400); RBC Distribution Width 13.7 % (11.5-14.5); Red Blood Cell (RBC) Count 4.85 mill/uL (4.20-5.40); White Blood Cell (WBC) Count 12.2 thou/uL (4.8-10.8)
[2019-10-12 05:08] LABS: Anion Gap 13 mmol/L (10-20); BUN (Urea Nitrogen) 12 mg/dL (9.8-20.1); Calc. Creatinine Clearance 113 mL/min (70-130); Calcium 9.1 mg/dL (7.8-10.44); Carbon Dioxide 25 mmol/L (23-31); Chloride 105 mmol/L (98-107); Estimated GFR-MDRD 68; Glucose 93 mg/dL (80-115); Magnesium 2.2 mg/dL (1.6-2.6); Phosphorus 3.4 mg/dL (2.3-4.7); Potassium 3.5 mmol/L (3.5-5.1); Sodium 139 mmol/L (136-145)
[2019-10-12] MEDS: Levothyroxine Sodium 100 MCG TAB PO SCH (05:49)
--- NOTE | 2019-10-12 07:05 | PDOC.FM ---
- Subjective Subjective: Patient reports palpitations are improved this morning. Denies chest pain. Reports SOB sometimes when she gets up and walks to the bathroom. Rate controlled overnight. - Objective Vital Signs & Weight: Vital Signs (12 hours) Temp Pulse Resp BP Pulse Ox 10/12/19 04:39 98.2 F 85 16 120/63 95 10/11/19 23:52 97.8 F 57 L 16 136/77 97 10/11/19 21:37 57 L 10/11/19 19:15 97.9 F 57 L 16 145/72 H 98 Weight Weight 108.862 kg Result Diagrams: 10/12/19 04:33 10/12/19 04:33 Phys Exam - Physical Examination Constitutional: NAD Respiratory: no wheezing, clear to auscultation bilateral irregularly irregular rhythm Gastrointestinal: soft, non-tender, no distention trace LE edema Neurological: non-focal, moves all 4 limbs Psychiatric: normal affect, A&O x 3 Skin: normal turgor, cap refill <2 seconds Dx/Plan (1) Flutter-fibrillation Code(s): I48.91 - UNSPECIFIED ATRIAL FIBRILLATION; I48.92 - UNSPECIFIED ATRIAL FLUTTER Status: Acute (2) Palpitations Code(s): R00.2 - PALPITATIONS Status: Acute (3) HTN (hypertension) Code(s): I10 - ESSENTIAL (PRIMARY) HYPERTENSION Status: Chronic Qualifiers: Hypertension type: essential hypertension Qualified Code(s): I10 - Essential (primary) hypertension (4) Hypothyroidism Code(s): E03.9 - HYPOTHYROIDISM, UNSPECIFIED Status: Chronic - Plan Plan: Atrial Flutter/Fib - status post ablation x 2 and cardioversion x1 - EKG showing flutter in ED with variable block - Hx of ablation 2011, Dec 2018, recent cardioversion 1 mo ago - Rate controlled currently - Home metoprolol and flecainide resumed - Admitted to tele for rhythm monitoring - Consulted cards in this AM, Dr Catherine, recs appreciated. Pt follows with Dr. Rios outpatient. HTN - Controlled currently - continue HCTZ and lisinopril Hypothyroidism - Continue levothyroxine - TSH wnl Diet: HH IVF: SL VTE: Eliquis Code: Full Dispo: Admitted to tele obs. ELOS <48hr, likely home later today. PCP: Dr. Geronimo Romeo MD PGY2 Addendum - Attending - Attending Attestation Date/Time: 10/12/19 1135 I personally evaluated the patient and discussed the management with Dr. Romeo. I agree with the History, Examination, Assessment and Plan documented above with any addition or exceptions noted below. Dispo pending cards recs. likely d/c today.
[2019-10-12] MEDS ORDERED: POTASSIUM GLUCONATE 99 MG PO SCH (09:00)
[2019-10-12] MEDS ORDERED: Promethazine 25 MG TAB PO PRN (09:58)
[2019-10-12] MEDS: Lisinopril/Hydrochlorothiazide 20 mg/12.5 mg Tablet PO SCH ×2 (10:14→20:27)
[2019-10-12] MEDS: Cyanocobalamin (Vitamin B-12) 1,000 MCG TAB PO SCH (10:15)
[2019-10-12] MEDS: Flecainide 50 MG TAB PO SCH ×2 (10:16→21:12)
[2019-10-12] MEDS: Apixaban 5 MG TAB PO SCH ×2 (10:16→20:28)
[2019-10-12] MEDS: Potassium Chloride 10 MEQ TAB PO SCH (10:16)
--- NOTE | 2019-10-12 16:57 | CON ---
DATE OF CONSULTATION: REASON FOR CONSULTATION: Recurrent atrial fibrillation. PRIMARY [employer]GS[employer] PRESS OPERATOR: Dr. Marlon Rios. HISTORY OF PRESENT ILLNESS: Ms. Hardwick is a very pleasant 68-year-old woman, who has had two ablations in the past. She also recently underwent successful synchronized cardioversion while on flecainide and anticoagulation therapy. She recently states she had recurrent episodes of atrial fibrillation. She had palpitations followed by bradycardia. She is more concerned about bradycardia. She was told on flecainide her heart rate should not drop less than 50. She states she has had multiple episodes where her heart rate was dropping into the 40s. No chest pain or pressure noted. HOME MEDICATIONS: Include; 1. Potassium. 2. Pravachol. 3. Lisinopril/hydrochlorothiazide. 4. Eliquis. 5. Metoprolol. 6. Levothyroxine. 7. Flecainide. PAST MEDICAL HISTORY: Atrial fibrillation, hyperlipidemia, hypertension, . FAMILY HISTORY: Negative for CAD. SOCIAL HISTORY: No current tobacco or alcohol use. ALLERGIES: PINEAPPLES. REVIEW OF SYSTEMS: A 10-point review of systems is reviewed as above, otherwise negative. PHYSICAL EXAMINATION: GENERAL: Patient is a pleasant female, who is in no acute distress. The patient appears their stated age. VITAL SIGNS: Blood pressure 118/71, pulse 64, temperature 98.5. NEUROLOGIC: The patient is alert and oriented x3 with no focal neurologic deficits. HEENT: Sclerae without icterus. Mouth has moist mucous membranes with normal pallor. NECK: No JVD. Carotid upstroke brisk. No bruits bilaterally. LUNGS: Clear to auscultation with unlabored respirations. BACK: No scoliosis or kyphosis. CARDIAC: Irregularly irregular rhythm with normal S1 and S2. No S3 or S4 noted. No significant rubs, murmurs, thrills, or gallops noted throughout the precordium. PMI is not displaced. There is no parasternal heave. ABDOMEN: Soft, nontender, nondistended. No peritoneal signs present. No hepatosplenomegaly. No abnormal striae. EXTREMITIES: 2+ femoral and 2+ dorsalis pedis pulses. No cyanosis, clubbing, or edema. SKIN: No gross abnormalities. PERTINENT LABORATORY DATA: Hemoglobin 13.7, hematocrit 43.3. Creatinine 0.84. Troponin negative. IMPRESSION: Recurrent atrial fibrillation. RECOMMENDATIONS: I had a long discussion with Ms. Hardwick and her about how to proceed. Discussed increasing flecainide to 100 mg one p.o. b.i.d. and scheduling an outpatient cardioversion. She has significant concerns about her bradycardia. This appears to be what her main focus is on currently. Therefore, I recommended we increase her flecainide to 100 mg one p.o. b.i.d. and schedule cardioversion tomorrow. I discussed case with Dr. Bailey, who agrees. He will also see her in consultation tomorrow as well. She may consider ablation plus or minus a pacemaker to prevent bradycardic episodes. Job ID: [id number]
[2019-10-12] MEDS: Atorvastatin Calcium 10 MG TAB PO SCH (20:28)
[2019-10-12] MEDS ORDERED: Flecainide 50 MG TAB PO SCH (21:15)
[2019-10-13] MEDS: Acetaminophen 325 MG TAB PO PRN (03:31)
[2019-10-13] MEDS: Levothyroxine Sodium 100 MCG TAB PO SCH (06:07)
[2019-10-13] MEDS: Cyanocobalamin (Vitamin B-12) 1,000 MCG TAB PO SCH (08:01)
[2019-10-13] MEDS: Flecainide 50 MG TAB PO SCH ×2 (08:02→22:19)
[2019-10-13] MEDS: Potassium Chloride 10 MEQ TAB PO SCH (08:03)
[2019-10-13] MEDS: Lisinopril/Hydrochlorothiazide 20 mg/12.5 mg Tablet PO SCH ×2 (08:03→22:26)
--- NOTE | 2019-10-13 08:59 | PDOC.FM ---
- Subjective Subjective: Patient denies chest pain or palpitations, reports lightheadedness when she gets up to walk to the bathroom. Reports nausea intermittently. No acute events overnight, Aflutter in the 40s-70s. - Objective Vital Signs & Weight: Vital Signs (12 hours) Temp Pulse Resp BP BP Pulse Ox 10/13/19 08:03 69 10/13/19 08:00 97.7 F 74 20 134/64 99 10/13/19 03:27 97.8 F 69 14 133/79 97 10/12/19 23:21 98.0 F 70 12 137/72 95 Weight Weight 108.862 kg I&O: 10/12/19 10/13/19 10/14/19 06:59 06:59 06:59 Intake Total 1088 Balance 1088 Result Diagrams: 10/12/19 04:33 10/12/19 04:33 Phys Exam - Physical Examination Constitutional: NAD Respiratory: no wheezing, clear to auscultation bilateral Cardiovascular: no significant murmur irregularly irregular rhythm Gastrointestinal: soft, non-tender, no distention Musculoskeletal: pulses present trace edema BLE Neurological: non-focal, moves all 4 limbs Psychiatric: normal affect, A&O x 3 Dx/Plan (1) Flutter-fibrillation Code(s): I48.91 - UNSPECIFIED ATRIAL FIBRILLATION; I48.92 - UNSPECIFIED ATRIAL FLUTTER Status: Acute (2) Palpitations Code(s): R00.2 - PALPITATIONS Status: Acute (3) HTN (hypertension) Code(s): I10 - ESSENTIAL (PRIMARY) HYPERTENSION Status: Chronic Qualifiers: Hypertension type: essential hypertension Qualified Code(s): I10 - Essential (primary) hypertension (4) Hypothyroidism Code(s): E03.9 - HYPOTHYROIDISM, UNSPECIFIED Status: Chronic - Plan Plan: Atrial Flutter/Fib - status post ablation x 2 and cardioversion x1 - EKG showing flutter in ED with variable block on admission - PMHx of ablation 2011, Dec 2018, recent cardioversion 1 mo ago - Dr Catherine, cardiology consulted; recs appreciated. Pt follows with Dr. Rios outpatient. - Dr. Catherine discussed cardioversion with patient, which is planned for today. Also discussed possible pacemaker placement. Pt to see Dr. Bailey today as well. - Increased flecainide to 100 mg BID; however pt pulse was low yesterday in 50s. Pt refused nighttime 25 mg metoprolol ER, and only 50 mg flecainide was given due to low pulse HTN, controlled - continue HCTZ and lisinopril Hypothyroidism - Continue levothyroxine - TSH wnl Diet: NPO for cardiology intervention today IVF: SL VTE: Eliquis Code: Full Dispo: Admitted to tele inpatient. Plan for ablation, possible pacemaker placement today. Likely discharge later today or tomorrow, depending on cardiology recommendations. PCP: Dr. Geronimo Romeo MD PGY2
[2019-10-13] MEDS: Apixaban 5 MG TAB PO SCH (10:05)
[2019-10-13] MEDS ORDERED: Apixaban 5 MG TAB PO SCH (10:30)
[2019-10-13] MEDS: Atorvastatin Calcium 10 MG TAB PO SCH (22:17)
[2019-10-14 04:34] LABS: #Basophils 0.1 thou/uL (0.0-0.2); #Eosinphils 0.3 thou/uL (0.0-0.7); #Lymphocytes 2.8 thou/uL (1.20-3.40); #Monocytes 0.9 thou/uL (0.11-0.59); #Neutrophils 9.5 thou/uL (1.40-6.50); %Basophils 0.4 % (0.0-1.0); %Eosinophils 2.3 % (0.0-10.0); %Lymphocytes 20.5 % (21.0-51.0); %Neutrophils 69.8 % (42.0-75.0); Hemoglobin 13.1 g/dL (12.0-16.0); Mean Corpuscular HGB CONC 32.6 g/dL (32.0-36.0); Mean Corpuscular Hemoglobin 28.3 pg (27.0-31.0); Mean Corpuscular Volume 86.9 fL (78.0-98.0); Mean Platelet Volume 8.7 fL (7.4-10.4); Platelet Count 279 thou/uL (130-400); RBC Distribution Width 13.8 % (11.5-14.5); Red Blood Cell (RBC) Count 4.62 mill/uL (4.20-5.40); White Blood Cell (WBC) Count 13.6 thou/uL (4.8-10.8)
[2019-10-14 04:58] LABS: Anion Gap 14 mmol/L (10-20); BUN (Urea Nitrogen) 20 mg/dL (9.8-20.1); Calc. Creatinine Clearance 112 mL/min (70-130); Calcium 9.3 mg/dL (7.8-10.44); Carbon Dioxide 22 mmol/L (23-31); Chloride 105 mmol/L (98-107); Estimated GFR-MDRD 67; Glucose 93 mg/dL (80-115); Potassium 3.7 mmol/L (3.5-5.1); Sodium 137 mmol/L (136-145)
[2019-10-14] MEDS: Lisinopril/Hydrochlorothiazide 20 mg/12.5 mg Tablet PO SCH (06:43)
[2019-10-14] MEDS: Flecainide 50 MG TAB PO SCH (06:44)
[2019-10-14] MEDS: Levothyroxine Sodium 100 MCG TAB PO SCH (06:45)
[2019-10-14] MEDS: Potassium Chloride 10 MEQ TAB PO SCH (06:45)
--- NOTE | 2019-10-14 07:07 | PDOC.FM ---
- Subjective Subjective: Patient feels well this morning, no complaints. States she feels much better after converting to sinus rhythm yesterday morning. - Objective Vital Signs & Weight: Vital Signs (12 hours) Temp Pulse Resp BP BP BP Pulse Ox 10/14/19 06:43 63 121/59 L 10/14/19 04:00 98.0 F 63 18 121/59 L 97 10/14/19 01:24 98.3 F 63 18 124/60 94 L 10/13/19 22:26 67 124/59 L 10/13/19 20:00 98.1 F 66 18 113/58 L 98 Weight Weight 108.862 kg I&O: 10/13/19 10/14/19 10/15/19 06:59 06:59 06:59 Intake Total 1088 600 Balance 1088 600 Result Diagrams: 10/14/19 04:22 10/14/19 04:22 Phys Exam - Physical Examination Constitutional: NAD Respiratory: no wheezing, clear to auscultation bilateral Cardiovascular: RRR, no significant murmur Gastrointestinal: soft, non-tender, no distention Musculoskeletal: no edema, pulses present Neurological: non-focal, moves all 4 limbs Psychiatric: normal affect Skin: no rash, normal turgor, cap refill <2 seconds Dx/Plan (1) Flutter-fibrillation Code(s): I48.91 - UNSPECIFIED ATRIAL FIBRILLATION; I48.92 - UNSPECIFIED ATRIAL FLUTTER Status: Acute (2) Palpitations Code(s): R00.2 - PALPITATIONS Status: Acute (3) HTN (hypertension) Code(s): I10 - ESSENTIAL (PRIMARY) HYPERTENSION Status: Chronic Qualifiers: Hypertension type: essential hypertension Qualified Code(s): I10 - Essential (primary) hypertension (4) Hypothyroidism Code(s): E03.9 - HYPOTHYROIDISM, UNSPECIFIED Status: Chronic - Plan Plan: New Atrial Flutter, resolved - Aflutter on admission, converted / @ 1100 to sinus 60s after a 4.4 and 2.6 second pause - PMHx of ablation 2011, Dec 2018, recent cardioversion 1 mo ago - Dr Catherine, cardiology consulted; recs appreciated. - Pt follows with Dr. Rios outpatient. - NPO for pacemaker placement with Dr. Bailey today - Flecainide 50 BID, metoprolol stopped HTN, controlled - continue HCTZ and lisinopril Hypothyroidism - Continue levothyroxine - TSH wnl Diet: NPO for pacemaker IVF: SL VTE: Eliquis Code: Full Dispo: Admitted to tele inpatient. Pacemaker placement today. Likely discharge later today or tomorrow, depending on cardiology recommendations. PCP: Dr. Geronimo Romeo MD PGY2 Addendum - Attending - Attending Attestation Date/Time: 10/14/19 [id number] I personally evaluated the patient and discussed the management with Dr. Rmoeo. I agree with the History, Examination, Assessment and Plan documented above with any addition or exceptions noted below. Per patient can d/c home today after recovered from pacemarker placement. Will f /u with cardiology and EP.
[2019-10-14] MEDS ORDERED: Gentamicin 80 MG/2 ML VIAL ONE (07:23)
[2019-10-14] MEDS ORDERED: CEFAZOLIN 1 GM VIAL ONE (07:23)
--- NOTE | 2019-10-14 07:43 | CON ---
DATE OF CONSULTATION: 10/13/2019 Dictated by Monisha Buenrostro, nurse practitioner, as a scribe for Dr. Avery Bailey. CONSULTED PHYSICIAN: Avery Bailey MD. PRIMARY MECHANICAL ENGINEERING SPECIALIST: Marlon Rios MD REASON FOR CONSULTATION: Recurrent atrial arrhythmias. HISTORY OF PRESENT ILLNESS: Ms. Hardwick is a 68-year-old woman with a history of recurrent atrial arrhythmias with prior ablations, most recently in 12/2018, at which time she underwent extensive atrial ablation including isolation of the posterior wall and re-isolation of 2 pulmonary veins. In addition, ablation was delivered to the coronary sinus and a right atrial flutter, cavotricuspid isthmus ablation line was redone. She did well maintaining sinus rhythm post ablation until July when she was found to be in atrial flutter with variable AV conduction. Typical isthmus dependent flutter could not be ruled out at that time. There was no particular reason for her recurrence. She remained on Eliquis for anticoagulation. She was placed back on flecainide, but has struggled with bradycardia even on flecainide. There was suspicion she may be moving towards pacemaker for tachy-colby syndrome, but her rhythm did stabilize during that hospitalization. She once again returns with palpitations and reporting heart rate frequently dipping into the 40s, which have prevented her from continuing her flecainide and metoprolol. When her heart rate is low, she feels dizzy and lightheaded, but denies any true syncopal or passing-out episodes. With her symptomatic bradycardia and her atrial arrhythmias, she is concerned about doing anything for fear of worsening bradycardia or having symptomatic atrial fibrillation. She does feel short of breath and rundown when she is in atrial flutter. Ms. Hardwick is currently resting in bed and feeling fair, but with low energy levels. She denies any heart racing, palpitations, chest pain/pressure, syncope/near syncope, or stroke-like symptoms. She is tolerating her blood-thinning medication, Eliquis, well without any bleeding dyscrasias. PAST MEDICAL HISTORY: 1. Recurrent atrial arrhythmias. a. PVAI in 2010 with redo in 12/2018. b. Typical atrial flutter status post CTI ablation in 12/2018. c. Late recurrent atrial flutter in 07/2019, prompting re-initiation of flecainide. 2. Bradycardia. 3. Hypertension. 4. Preserved LVEF 55% to 60%, left atrial enlargement, mild valvular disease by echo on 03/02/2016. 5. Hypercholesterolemia. 6. Hypothyroidism. ALLERGIES: ADHESIVE TAPE AND LATEX. HOME MEDICATIONS: Include: 1. Flecainide 50 mg b.i.d. 2. Vitamin D 8000 units daily. 3. Prinzide 20 mg/12.5 mg half a tablet b.i.d. 4. B12 of 5000 mcg daily. 5. Pravachol 40 mg nightly. 6. Synthroid 100 mcg daily. 7. Potassium 99 mg daily. 8. Metoprolol succinate 25 mg p.o. b.i.d. 9. Eliquis 5 mg p.o. b.i.d. REVIEW OF SYSTEMS: Twelve-point review of systems is unremarkable except that listed above in HPI. FAMILY HISTORY: Noncontributory. SOCIAL HISTORY: She is . Denies alcohol, tobacco, or illicit drug use. Quit smoking 40 years ago. OBJECTIVE: VITAL SIGNS: Temperature 97.7 degrees Fahrenheit, pulse 62, respirations 20, oxygen 99% on room air, and blood pressure 134/64. Orthostatic blood pressure is positive supine 154/75, sitting 143/67, and standing 107/58. GENERAL: The patient is alert and oriented. Speech is clear. Affect is appropriate. No apparent distress at the time of the exam. HEENT: She is normocephalic and atraumatic. Sclerae anicteric. EOMs are intact. Oral mucosa is moist and pink with adequate dentition. NECK: Supple without jugular venous distention. She has no lymphadenopathy. Trachea is midline. LUNGS: Clear to auscultation bilaterally without wheezes, crackles, or rhonchi. HEART: Rate is irregularly irregular, occasionally bradycardic. PMI is nondisplaced. ABDOMEN: Obese, soft, and nontender without palpable masses. EXTREMITIES: Warm and dry to touch. Well perfused without clubbing, cyanosis, or edema. NEUROLOGIC: Grossly intact and nonfocal. Gait was not assessed. DATABASE: Hematology was unremarkable. WBC slightly elevated at 12.2. Chemistry unremarkable. Potassium 3.5, creatinine 0.84. Troponin is negative. Magnesium 2.2. TSH 1.08. Liver enzymes within normal ranges. Telemetry and EKG show atrial flutter with variable AV conduction and occasionally slow ventricular response in the 40s, with correlating symptoms of dizziness and lightheadedness. IMPRESSION: 1. Recurrent atrial arrhythmias. 2. Atrial flutter with variable AV conduction, symptomatic with slow ventricular rates. 3. Tachy-colby syndrome. 4. CHADS-VASc score of greater than or equal to 3 for female gender, advancing age, and hypertension, on Eliquis 5 mg b.i.d. for stroke prophylaxis. PLAN AND RECOMMENDATIONS: Ms. Hardwick is a delightful 68-year-old woman who we find once again has experienced a late recurrence of atrial arrhythmias. Her most recent ablation was performed in 12/2018. She is currently in atrial flutter with variable AV conduction and is fairly well organized. I cannot rule out typical atrial flutter recurrence, but it is more likely atypical. She is having significant bradycardia with low-dose beta blockers while on flecainide. I am unable to further titrate her medication regimen up without worsening her bradycardia. In light of her tachy-colby syndrome, I feel she would benefit from pacemaker implant to allow for continued treatment of her arrhythmias. We will hold her Eliquis tonight and tomorrow morning and anticipate a dual-chamber MRI-compatible Medtronic device to be implanted tomorrow. She will be n.p.o. after midnight. We discussed the risks, benefits, and alternatives. She voices understanding and wishes to proceed with pacemaker implant. In the future, she may need a redo ablation, but for now wishes to proceed with pacemaker and continued antiarrhythmic therapy regimen. She is minimally symptomatic while in atrial fibrillation, but does endorse low energy levels and fatigue. Initially, her grain blender was going to arrange for cardioversion today, but this has been canceled in anticipation of the pacemaker tomorrow. Risks with pacemaker implant include bleeding, hematoma, bruising, infection at the implant site, pericardial effusion, pneumothorax, lead dislodgement, and/or device malfunction and recall. The patient voices understanding and wishes to proceed with procedure tomorrow. I will make arrangements. Thank you for allowing me to participate in the care of your patient. Job ID: [id number]
[2019-10-14] MEDS ORDERED: Midazolam HCl 2 mg/2 ml Vial ONE ×2 (08:32→09:14)
[2019-10-14] MEDS ORDERED: Fentanyl 100 MCG/2 ML VIAL ONE (08:32)
[2019-10-14] MEDS ORDERED: Iopamidol 370 76% 50 ML VIAL FS ONE (08:46)
[2019-10-14] MEDS ORDERED: Lidocaine 1% (PF) 30 ML VIAL ONE ×2 (08:48→09:13)
[2019-10-14] MEDS: Acetaminophen 325 MG TAB PO PRN ×2 (10:16→16:07)
[2019-10-14] MEDS ORDERED: Flecainide 50 MG TAB PO SCH ×4 (10:19→21:00)
[2019-10-14] MEDS ORDERED: Flecainide 50 MG TAB PO ONE (10:51)
[2019-10-14] MEDS: Cyanocobalamin (Vitamin B-12) 1,000 MCG TAB PO SCH (11:15)
--- NOTE | 2019-10-14 11:16 | PDOC.EP ---
- Subjective Date: 10/14/19 Time: 11:14 Interval History: s/p dual chamber PPM implant this AM. Tender at implant site but otherwise feels well. Her stress/fear is greatly reducing with PPM support now in place - Review of Systems Constitutional: denies: chills, fever, malaise, sweats, weakness Respiratory: denies: cough, dry, shortness of breath, wheezing Cardiology: denies: chest pain, edema, heart racing, light headedness Gastrointestinal: denies: abdominal pain, constipation, diarrhea - Objective Allergies/Adverse Reactions: Allergies Allergy/AdvReac Type Severity Reaction Status Date / Time adhesive tape Allergy Verified 10/11/19 19:07 latex Allergy Verified 10/11/19 19:07 Current Medications Acetaminophen (Tylenol) 650 mg PO Q4H PRN PRN Reason: Headache/Fever/Mild Pain (1-3) Last Admin: 10/14/19 10:16 Dose: 650 mg Apixaban (Eliquis) 5 mg PO BID [facility] Last Admin: 10/13/19 10:05 Dose: 5 mg Atorvastatin Calcium (Lipitor) 10 mg PO HS [facility] Last Admin: 10/13/19 22:17 Dose: 10 mg Cholecalciferol (Vitamin D3) 8,000 units PO DAILY [facility] Last Admin: 10/13/19 08:01 Dose: 8,000 units Cyanocobalamin (Vitamin B-12) 5,000 mcg PO DAILY [facility] Last Admin: 10/13/19 08:01 Dose: 5,000 mcg Flecainide Acetate (Tambocor) 100 mg PO BID [facility] Stop: 10/18/19 21:01 Flecainide Acetate (Tambocor) 50 mg PO ONE ONE Stop: 10/14/19 11:13 Lisinopril/HCTZ (Prinizide 20-12.5) 0.5 tab PO BID [facility] Last Admin: 10/14/19 06:43 Dose: 0.5 tab Levothyroxine Sodium (Synthroid) 100 mcg PO 0600 [facility] Last Admin: 10/14/19 06:45 Dose: 100 mcg Metoprolol Succinate (Toprol Xl) 50 mg PO DAILY [facility] Metoprolol Succinate (Toprol Xl) 50 mg PO NOW [facility] Stop: 10/14/19 14:00 Potassium Chloride (Klor-Con 10) 5 meq PO DAILY [facility] Last Admin: 10/14/19 06:45 Dose: 5 meq Promethazine HCl (Phenergan) 12.5 mg PO Q6H PRN PRN Reason: Nausea/Vomiting Sodium Chloride (Flush - Normal Saline) 10 ml IVF PRN PRN PRN Reason: Saline Flush Last Admin: 10/11/19 21:38 Dose: 10 ml Vital Signs & Weight: Vital Signs Temp Pulse Resp BP BP BP Pulse Ox 10/14/19 08:00 98 10/14/19 07:19 97.7 F 61 18 141/67 H 98 10/14/19 06:43 63 121/59 L 10/14/19 04:00 98.0 F 63 18 121/59 L 97 10/14/19 01:24 98.3 F 63 18 124/60 94 L Weight 240 lb I/O: I/O 10/13/19 10/14/19 10/15/19 06:59 06:59 06:59 Intake Total 1088 600 80 Balance 1088 600 80 - Quality Measures Condition: Atrial Fibrillation/Flutter (hx or current) CV meds: Eliquis: Yes (resume 10/17) - Physical Exam General: alert & oriented x3, appears well, no apparent distress, speech clear, affect appropriate HEENT: mucus membranes moist, normocephaly, PERRL. negative: oral lesions Neck: supple neck, midline trachea, no JVD/HJR, no lymphadenopathy Cardiology: regular rate and rhythm, no murmur, PMI nondisplaced Lungs: clear to auscultation, normal breath sounds, no wheeze, rales, rhonchi Neurology: cranial nerve 2-12 intact, grossly intact, no lateralizing findings Abdomen: unremarkable, active bowel sounds, no pulsations/bruits Extremities: dry, strong pulses, warm Skin: left sided device (new implant. expected swelling is seen without hematoma. edges well approximated), swelling. negative: bruising, drainage, hematoma - Chadsvasc Risk factors Hypertension: 1 Age 65-74: 1 Female: 1 Risk Score: 3 - Labs Result Diagrams: 10/14/19 04:22 10/14/19 04:22 - EKG Interpretation EKG Method: Telemetry EKG shows: Sinus rhythm (AP, VS) - Device Device: dual, pacemaker Device Result: Medtronic - Assessment/Plan Assessment/Plan: IMPRESSION: 1. Recurrent atrial arrhythmias. 2. Atrial flutter with variable AV conduction, symptomatic with slow ventricular rates. 3. Tachy-colby syndrome. 4. CHADS-VASc score of greater than or equal to 3 for female gender, advancing age, and hypertension, on Eliquis 5 mg b.i.d. for stroke prophylaxis. -Converted to SR 10/12 after a 7-8 sec conversion pause with single ventricular escape beat. -Had dual chamber PPM implant today. Post implant device check is stable. AP, VS. CXR done- no pneumothorax, Good lead position -Was given Flecainide 50mg this AM. Give an additional Flecainide 50mg now then begin 100mg PO BID scheduled. -Continue metoprolol succinate 25mg BID -Resume eliquis 5mg BID on 10/18/2019 AM. -Post implant Keflex 500mg PO QID x 7 days -Wound/device check in 2 weeks. Was having nonsustained wide complex tachycardia runs on telemetry. This does not appear to be ventricular tachycardia. More likely paroxysmal atrial tachycardia with aberrancy. Continue beta-janette as prescribed. okay for discharge by EP
--- NOTE | 2019-10-14 12:33 | RAD ---
CHEST 1 VIEW: Date: 10/14/2019 INDICATION: History of post cardiac device placement. COMPARISON: Prior exam dated 10/11/2019. FINDINGS: Since the comparison examination, there has been interval placement of a dual lead pacemaker overlyin g the left chest wall. No definite pneumothorax is evident. There is a moderate sized hiatal hernia. Visualized right lung is clear. No acute osseous abnormality is evident. IMPRESSION: 1. Interval placement of a dual lead left subclavian chest wall pacer. No definite evidence of compl ication. 2. Stable double density behind the cardiac silhouette likely reflective of a moderate size hiatal h ernia. POS: BH
[2019-10-14] MEDS ORDERED: Cephalexin 250 MG/5 ML Oral Suspension PO SCH (13:00)
--- NOTE | 2019-10-14 14:54 | PDOC.BPN ---
- Brief Progress Note Spoke with Dr. Bailey about patient's eliquis, which can be resumed the morning of 10/16/2019. Also gave the patient a sling for L arm, to help her remember not to move her arm over her head at night time.
[2019-10-14] MEDS ORDERED: Acetaminophen/Codeine 30-300mg Tablet PO PRN ×2 (15:00)
[2019-10-14 16:23] VITALS: BP 140/69; TEMP 97.9
--- NOTE | 2019-10-14 22:57 | DIS ---
DATE OF ADMISSION: 10/11/2019 DATE OF DISCHARGE: 10/14/2019 RESIDENT: Anna Romeo MD ADMITTING ATTENDING: Manoj Espinoza MD DISCHARGE ATTENDING: Matheus Mixon MD CONSULTS: 1. Dr. Catherine, 10/12/2019. 2. Dr. Bailey, 10/14/2019. PROCEDURES: 1. Chest x-ray on 10/11/2019; impression, no acute process. 2. Pacemaker placement, 10/14/2019. 3. Chest x-ray on 10/14/2019, interval placement of a dual lead left subclavian chest wall pacer. No definite evidence of complication. Stable double density behind the cardiac silhouette, likely reflective of moderate size hiatal hernia. PRIMARY DIAGNOSES: 1. Recurrent atrial arrhythmias. 2. Atrial flutter with variable AV conduction, symptomatic with slow ventricular rate. 3. Tachy-colby syndrome. SECONDARY DIAGNOSES: 1. Hypertension, controlled. 2. Hyperthyroidism. DISCHARGE MEDICATIONS: 1. Keflex 500 mg p.o. q.6 hours for 7 days. 2. Flecainide 100 mg p.o. b.i.d. 3. Potassium gluconate 5 mEq daily. 4. Lisinopril/hydrochlorothiazide half tab oral b.i.d. 5. Pravastatin 40 mg p.o. at bedtime. 6. Vitamin B12 of 5000 mcg p.o. daily. 7. Vitamin D3 of 5000 units p.o. daily. 8. Levothyroxine 100 mcg p.o. daily. 9. Metoprolol 25 mg p.o. b.i.d. 10. Eliquis 5 mg p.o. b.i.d. to be started the morning of October 16, 2019. DISCONTINUED MEDICATION: Flecainide 50 mg p.o. b.i.d. HISTORY OF PRESENT ILLNESS/HOSPITAL COURSE: A 68-year-old female with past medical history of atrial fibrillation, 2 ablations, and a recent cardioversion, presented to the ED with complaints of palpitations that began the morning of admission. Her pulse was in the 140s at home and was found to be in aflutter in the ED. The patient reported dizziness with ambulation and fluttering in her chest. Denies shortness of breath, nausea, radiating discomfort, or syncope. The patient took metoprolol and flecainide for rhythm control and titrate her metoprolol at home based on her rate. Dr. Catherine was consulted to see the patient. It was decided that she would undergo cardioversion with possible pacemaker placement. The next day however, the patient decided that she wanted a pacemaker and she converted back to normal sinus rhythm on her own. Pacemaker was placed 10/14/2019. Prior to discharge, the patient had a nonsustained wide-complex tachycardia runs on telemetry. Per note from Dr. Bailey, this did not appear to be ventricular tachycardia but is more likely paroxysmal atrial tachycardia with aberrancy and did not need further follow up or intervention. The patient is to continue with beta janette as prescribed and was okayed for discharge by EP. Flecainide was increased to 100 mg p.o. b.i.d. Metoprolol succinate was continued at 25 mg b.i.d. Eliquis is to be resumed the AM of October 16, 2019. The patient is to have Keflex 500 mg p.o. q.i.d. for 1 week. The patient is to follow up with Dr. Bailey for wound/device check in two weeks, to follow up with Dr. Rios in 1 month and follow up with her PCP, Dr. Melton within 1 week. DISPOSITION: Stable. DISCHARGE INSTRUCTIONS: 1. Location: Home. 2. Diet: Heart healthy. 3. Activity: As tolerated. 4. Followup: With Dr. Melton, Family Medicine within 1 week. Follow up with Dr. Bailey, EPS for wound/device check in two weeks. Follow up with Dr. Rios in 1 month. Job ID: [id number] [facility]
--- NOTE | 2019-10-16 10:04 | PQF ---
BRYAN KRAFT Zoltan [id number] CLINICAL DOCUMENTATION CLARIFICATION FORM: POST DISCHARGE Addendum to original discharge summary date: ____ Late entry note date: __ DATE: 10/16/2019 ATTN:Avery Bailey Please exercise your independent, professional judgment in responding to the clarification form. Clinical indicators are provided on the bottom of this form for your review Please check appropriate box(s): [ ] Associated Diagnosis: Aorta Tortous [ X ] Not clinically significant radiology findings [ ] Other diagnosis [ ] Unable to determine For continuity of documentation, please document condition throughout progress notes and discharge summary. Thank You. CLINICAL INDICATORS - SIGNS / SYMPTOMS/ LABS are present in the medical record: Chest Xray 10/10 "The aorta is tortous" HP 10/10 "cc:palpitation" DS 10/13 "patient reports dizziness" Vital Signs Pulse: 10/10=66 10/13=63 RISK FACTORS 68 years old female-HP 10/10 Afib-HP 10/10 HTN-HP 10/10 Tachy-colby syndrome-DS 10/13 Smoker-HP 10/10 CAD-HP 10/10 TREATMENT Chest Xray-Collected 10/10 Pacemaker insertion-OP Note 10/10 Cardiology consult-DS 10/13 Metoprolol 50mg Oral-MAR 10/14 (This form is maintained as a part of the permanent medical record) 2014 [employer] All Rights Reserved [phone] MTDD
== END 2019-10-14 16:42 | disposition home or self-care (01) | DRG 244 ==
LOC: ERS 14:05 → OBSVTOIN 16:52 → 2SE 16:52
PROVIDERS: ADMIT Family Medicine; ATTEND Family Medicine
PROC: 0JH606Z Insertion of Pacemaker, Dual Chamber into Chest Subcutaneous Tissue and Fascia, Open Approach (ICD-10-PCS; principal; 2019-10-14)
PROC: 02H63JZ Insertion of Pacemaker Lead into Right Atrium, Percutaneous Approach (ICD-10-PCS; 2019-10-14)
PROC: 02HK3JZ Insertion of Pacemaker Lead into Right Ventricle, Percutaneous Approach (ICD-10-PCS; 2019-10-14)
DX: I48.3 Typical atrial flutter (principal); I10 Essential (primary) hypertension; E03.9 Hypothyroidism, unspecified; F17.210 Nicotine dependence, cigarettes, uncomplicated; I48.0 Paroxysmal atrial fibrillation; I25.10 Atherosclerotic heart disease of native coronary artery without angina pectoris; I49.5 Sick sinus syndrome; E78.00 Pure hypercholesterolemia, unspecified; Z91.040 Latex allergy status; Z91.048 Other nonmedicinal substance allergy status; Z79.01 Long term (current) use of anticoagulants; Z79.899 Other long term (current) drug therapy; Z98.51 Tubal ligation status
CPT/HCPCS: 33208; 36415; 71045; 71046; 76942; 80048; 80053; 82550; 83735; 84100; 84443; 84484; 85025; 93005; 93010; 93798; 99152; 99153; C1785; C1898; J0690; J1580; J2001; J2250; J3010; Q9967

== ENCOUNTER 2019-11-27 18:53 | Observation (INO) | payer MEDICARE, OTHER ==
[2019-11-27 19:33] LABS: Bilirubin Negative (Negative); Blood, Urine Negative (Negative); Clarity Clear (Clear); Glucose, Urine (Dipstick) Normal (Negative); Ketone, Urine Negative (Negative); Leukocyte Negative Leu/uL (Negative); Nitrite Negative (Negative); Protein, Urine (Dipstick) Negative (Neg-Trace); Specific Gravity, Urine 1.005 (1.002-1.036); Urobilinogen Normal mg/dL (Less than 2)
[2019-11-27 19:50] LABS: #Basophils 0.1 thou/uL (0.0-0.2); #Eosinphils 0.3 thou/uL (0.0-0.7); #Lymphocytes 2.1 thou/uL (1.20-3.40); #Monocytes 0.7 thou/uL (0.11-0.59); #Neutrophils 7.7 thou/uL (1.40-6.50); %Basophils 0.6 % (0.0-1.0); %Eosinophils 2.4 % (0.0-10.0); %Lymphocytes 19.6 % (21.0-51.0); %Monocytes 6.3 % (0.0-10.0); %Neutrophils 71.2 % (42.0-75.0); Hemoglobin 12.8 g/dL (12.0-16.0); Mean Corpuscular Hemoglobin 28.1 pg (27.0-31.0); Mean Corpuscular Volume 85.3 fL (78.0-98.0); Mean Platelet Volume 8.2 fL (7.4-10.4); Platelet Count 298 thou/uL (130-400); RBC Distribution Width 13.1 % (11.5-14.5); Red Blood Cell (RBC) Count 4.56 mill/uL (4.20-5.40); White Blood Cell (WBC) Count 10.8 thou/uL (4.8-10.8)
[2019-11-27 20:12] LABS: ALT (SGPT) 11 U/L (8-55); AST (SGOT) 18 U/L (5-34); Albumin 4.1 g/dL (3.4-4.8); Alkaline Phosphatase 101 U/L (40-110); Anion Gap 13 mmol/L (10-20); BUN (Urea Nitrogen) 12 mg/dL (9.8-20.1); Bilirubin, Total 0.6 mg/dL (0.2-1.2); CK (CPK) 50 U/L (29-168); Calc. Creatinine Clearance 0 mL/min (70-130); Calcium 9.2 mg/dL (7.8-10.44); Carbon Dioxide 27 mmol/L (23-31); Chloride 104 mmol/L (98-107); Estimated GFR-MDRD 52; Globulin 3.1 g/dL (2.4-3.5); Glucose 98 mg/dL (80-115); Lipase 12 U/L (8-78); Potassium 3.8 mmol/L (3.5-5.1); Protein, Total 7.2 g/dL (6.0-8.3); Sodium 140 mmol/L (136-145)
--- NOTE | 2019-11-27 20:22 | RAD ---
SINGLE VIEW OF THE CHEST: 11/27/19 COMPARISON: 10/14/19 HISTORY: Hypertension, shortness of breath and chest pain. FINDINGS: Single view of the chest shows a cardiomediastinal silhouette which is upper limits of normal in size . The pacemaker is unchanged in position. There is no evidence of consolidation, mass or pleural effu carley. IMPRESSION: No evidence of cardiopulmonary disease. POS: [facility]
[2019-11-27 20:33] LABS: CKMB 0.7 ng/mL (0-6.6)
[2019-11-27 20:43] LABS: INR-International Normal Ratio 1.2; PTT 34.4 sec (22.9-36.1); Prothrombin Time 15.2 sec (12.0-14.7)
[2019-11-27] MEDS ORDERED: Promethazine HCl 25 MG/ML VIAL ONE (21:29)
--- NOTE | 2019-11-27 21:34 | PDOC.FPRHP ---
- History of Present Illness Chief Complaint: chest pain History of Present Illness: This is a 69yo F presenting to the ER today due to worsening epigastric pain that started yesterday. She states that after her exercise class on 11/25 at 11am she started to have epigastric pain. She states that her BP at that time was 150 SBP. She states denies any NVD or diaphoresis at that time. It is not made worse with exercise, deep breaths or palpation. She does think it gets worse with large meals or drinking too many fluids. It has not been made better by anything. She states the pain is already better though than earlier and has actually nearly dissipated since being in the ER. She states that she did develop nausea this morning. The nausea improved after getting medication in the ER. The patient describes the epigastric pain as pressure, non radiating, constant. Unable to rate it on a pain scale because she states its not really pain, but more pressure. Patient endorses SOB that has worsened over the last day as well. Denies cough, fever, chills. States SOB is made worse lying flat but she does not wake up SOB or gasping for air at night usually. Denies any swelling in her legs. The patient recently had a pacemaker placed on 10/14/19. She followed up with Dr. Rios and with her PCP shortly after this. She has not had any issue prior to yesterday. She states that Dr. Melton has told her that she has a diaphragmatic hernia that she feels may be causing her symptoms. Patient believes she had a stress test last Dec in the cardiology clinic outpatient and it was normal. She does not think she has ever had a cath. ED Course: ASA, promethazine, 100ml NS - Allergies/Adverse Reactions Allergies Allergy/AdvReac Type Severity Reaction Status Date / Time adhesive tape Allergy Verified 10/11/19 19:07 latex Allergy Verified 10/11/19 19:07 - Home Medications Medication Instructions Recorded Confirmed Type Lisinopril/Hydrochlorothiazide 0.5 tab PO BID 05/15/14 10/11/19 History [Prinizide] Potassium Gluconate 99 mg PO DAILY 05/15/14 10/11/19 History Pravastatin Sodium [Pravachol] 40 mg PO HS 05/15/14 10/11/19 History Cholecalciferol (Vitamin D3) 8,000 units PO DAILY 10/17/17 10/11/19 History [[id number]-Ytyxtoj] Cyanocobalamin (Vitamin B-12) 5,000 mcg PO DAILY 10/17/17 10/11/19 History [Vitamin B-12] Levothyroxine Sodium [Synthroid] 100 mcg PO DAILY 08/09/19 10/11/19 History Metoprolol Succinate 25 mg PO BID 10/11/19 10/11/19 History Apixaban [Eliquis] 5 mg PO BID #0 10/14/19 10/11/19 Rx Cephalexin [Keflex] 500 mg PO Q6H 7 Days #28 cap 10/14/19 Rx Flecainide Acetate 100 mg PO BID #60 tablet 10/14/19 Rx - History PMHx: HTN, hypothyroidism, Afib s/p pacemaker PSHx: Tubal ligation, tonsillectomy, Atrial ablation (03/24, 12/29), pacemaker () FHx: Noncontributory Social: Smoked a couple of cigarettes a day over 40 years ago. Does not drink or use recreational drugs. - Review of Systems General: denies: fever/chills, weight/appetite/sleep changes, night sweats, fatigue Eyes: denies: vision changes ENT: denies: nasal congestion Respiratory: reports: shortness of breath. denies: cough, congestion, exercise intolerance Cardiovascular: reports: orthopnea. denies: chest pain, palpitation, edema, paroxysmal nocturnal dyspnea Gastrointestinal: reports: nausea, abdominal pain (epigastric). denies: vomiting, diarrhea, constipation Genitourinary: denies: dysuria Skin: denies: rashes Musculoskeletal: denies: pain, tenderness, stiffness, swelling Neurological: denies: weakness - Vital signs BP: 173/86, MAP: 115, Pulse: 60, Resp: 16 (Non-Labored), Pain: 0, O2 sat: 100 on (Room Air), Time: 11/27/2019 21:35. BP: 174/98, Pulse: 69, Temp: 97.6 (Oral), Pain: 6, O2 sat: 98 on (Room Air), Time: 11/27/2019 18:54. Weight 107kg - Physical Exam Constitutional: NAD, awake, alert and oriented -Constitutional: obese HEENT: normocephalic and atraumatic, PERRLA, EOMI, no scleral icterus, grossly normal vision, grossly normal hearing, MMM Neck: supple, FROM, trachea midline, no JVD -Chest: TTP over L chest over pacemaker scar/placement site; otherwise no TTP Heart: RRR, normal S1/S2, no murmurs/rubs/gallops, pulses present, no edema Lungs: CTAB, no respiratory distress, good air movement, no rales/rhonchi, no wheezing, no retractions Abdomen: soft, non-tender, bowel sounds present Musculoskeletal: normal structure, normal tone, ROM grossly normal Neurological: no focal deficit Skin: no rash/lesions, good turgor, capillary refill <2 seconds Heme/Lymphatic: no unusual bruising or bleeding Psychiatric: normal mood and affect, good judgment and insight, intact recent and remote memory FMR H&P: Results - Labs Result Diagrams: 11/27/19 19:41 11/27/19 19:41 Lab results: WBC 10.8 thou/uL (4.8-10.8) 11/27/19 19:41 Hgb 12.8 g/dL (12.0-16.0) 11/27/19 19:41 Hct 38.9 % (36.0-47.0) 11/27/19 19:41 MCV 85.3 fL (78.0-98.0) 11/27/19 19:41 Plt Count 298 thou/uL (130-400) 11/27/19 19:41 Neutrophils % 71.2 % (42.0-75.0) 11/27/19 19:41 Sodium 140 mmol/L (136-145) 11/27/19 19:41 Potassium 3.8 mmol/L (3.5-5.1) 11/27/19 19:41 Chloride 104 mmol/L (98-107) 11/27/19 19:41 Carbon Dioxide 27 mmol/L (23-31) 11/27/19 19:41 BUN 12 mg/dL (9.8-20.1) 11/27/19 19:41 Creatinine 1.06 mg/dL (0.6-1.1) 11/27/19 19:41 Glucose 98 mg/dL (80-115) 11/27/19 19:41 Calcium 9.2 mg/dL (7.8-10.44) 11/27/19 19:41 Total Bilirubin 0.6 mg/dL (0.2-1.2) 11/27/19 19:41 AST 18 U/L (5-34) 11/27/19 19:41 ALT 11 U/L (8-55) 11/27/19 19:41 Alkaline Phosphatase 101 U/L (40-110) 11/27/19 19:41 Creatine Kinase 50 U/L (29-168) 11/27/19 19:41 CK-MB (CK-2) 0.7 ng/mL (0-6.6) 11/27/19 19:41 Serum Total Protein 7.2 g/dL (6.0-8.3) 11/27/19 19:41 Albumin 4.1 g/dL (3.4-4.8) 11/27/19 19:41 Lipase 12 U/L (8-78) 11/27/19 19:41 Urine Ketones Negative mg/dL (Negative) 11/27/19 19:04 Urine Blood Negative (Negative) 11/27/19 19:04 Urine Nitrite Negative (Negative) 11/27/19 19:04 Ur Leukocyte Esterase Negative Jesus/uL (Negative) 11/27/19 19:04 - Radiology Interpretation Chest x-ray Status: report reviewed by me (no cardiopulm disease) FMR H&P: A/P - Problem List (1) A-fib Current Visit: No Status: Acute Code(s): I48.91 - UNSPECIFIED ATRIAL FIBRILLATION (2) Nausea Current Visit: No Status: Acute Code(s): R11.0 - NAUSEA Comment: Resolved (3) Shortness of breath Current Visit: No Status: Acute Code(s): R06.02 - SHORTNESS OF BREATH (4) HLD (hyperlipidemia) Current Visit: No Status: Chronic Code(s): E78.5 - HYPERLIPIDEMIA, UNSPECIFIED (5) HTN (hypertension) Current Visit: No Status: Chronic Code(s): I10 - ESSENTIAL (PRIMARY) HYPERTENSION Qualifiers: Hypertension type: essential hypertension Qualified Code(s): I10 - Essential (primary) hypertension Comment: Stable (6) Hypothyroidism Current Visit: No Status: Chronic Code(s): E03.9 - HYPOTHYROIDISM, UNSPECIFIED Comment: Continue [place] Thyroid 97.5mg daily - Plan Atypical Chest pain r/o ACS Patient with chest pain more located in the epigastric pain, relieved with promethazine, and no exacerbated with exercise. CXR normal. EKG showing atrial pace rhythm, mild LVH, otherwise normal. HEART score of 7 due to hx and risk factors. Suspect symptoms more likely due to GERD as opposed to ACS. - Initial trop 0.03. Will continue to trend. - TSH pending - Will order for stress test to be done in the AM; NPO @ midnight. Hold BB. - Risk stratification - see lipids below. A1c 5.5 in July 2019. - Nitro PRN, zofran PRN - Can consider cardiology consult in the AM. Patient previously seen by Dr. Rios. - Admit to tele, obs HTN - Will continue home meds, PRNs available Afib s/p pacemaker Pacemaker placed on 10/13/29 - Will monitor on tele HLD Chol: 168, LDL 104, HDL 44, TG 102. ASCVD risk > 10%. - Continue home meds, consider high int statin Hypothyroidism - On levothyroxine 100mcg daily, will continue. TSH pending. Dispo: admit to tele, obs. LOS <48hrs PCP: Geronimo Diet: HH, NPO at midnight for stress Ppx: lovenox Case to be discussed with Dr. Cordoba
[2019-11-27] MEDS ORDERED: Aspirin Chewable 81 MG TAB ONE (22:13)
[2019-11-27] MEDS ORDERED: Ondansetron ODT 4 MG TAB PO PRN (22:17)
[2019-11-27] MEDS ORDERED: Ondansetron PF 4 MG/2 ML Vial IVP PRN (22:17)
[2019-11-27] MEDS ORDERED: Acetaminophen 650 MG Suppository PR PRN (22:17)
[2019-11-27] MEDS ORDERED: Acetaminophen 325 MG TAB PO PRN (22:17)
[2019-11-27] MEDS ORDERED: Nitroglycerin 0.4 MG TAB (25 Tab Bottle) PO PRN (22:17)
[2019-11-27] MEDS ORDERED: hydrALAZINE 20 MG/ML VIAL SLOW IVP PRN (22:50)
[2019-11-28 00:14] LABS: Troponin I Less than 0.010 ng/mL (< 0.028)
[2019-11-28 03:09] LABS: #Basophils 0.1 thou/uL (0.0-0.2); #Eosinphils 0.2 thou/uL (0.0-0.7); #Lymphocytes 3.3 thou/uL (1.20-3.40); #Monocytes 0.8 thou/uL (0.11-0.59); #Neutrophils 6.7 thou/uL (1.40-6.50); %Basophils 0.7 % (0.0-1.0); %Eosinophils 2.2 % (0.0-10.0); %Lymphocytes 29.8 % (21.0-51.0); %Monocytes 6.8 % (0.0-10.0); %Neutrophils 60.5 % (42.0-75.0); Hemoglobin 12.8 g/dL (12.0-16.0); Mean Corpuscular HGB CONC 32.8 g/dL (32.0-36.0); Mean Corpuscular Hemoglobin 28.1 pg (27.0-31.0); Mean Corpuscular Volume 85.9 fL (78.0-98.0); Mean Platelet Volume 8.2 fL (7.4-10.4); Platelet Count 298 thou/uL (130-400); RBC Distribution Width 13.2 % (11.5-14.5); Red Blood Cell (RBC) Count 4.56 mill/uL (4.20-5.40); White Blood Cell (WBC) Count 11.1 thou/uL (4.8-10.8)
[2019-11-28 03:34] LABS: Anion Gap 10 mmol/L (10-20); BUN (Urea Nitrogen) 12 mg/dL (9.8-20.1); Calc. Creatinine Clearance 0 mL/min (70-130); Calcium 9.7 mg/dL (7.8-10.44); Carbon Dioxide 30 mmol/L (23-31); Chloride 104 mmol/L (98-107); Estimated GFR-MDRD 58; Glucose 96 mg/dL (80-115); Potassium 3.4 mmol/L (3.5-5.1); Sodium 141 mmol/L (136-145)
[2019-11-28] MEDS ORDERED: Acetaminophen 325 MG TAB ONE (03:59)
[2019-11-28 04:39] LABS: Bilirubin Negative (Negative); Blood, Urine Negative (Negative); Clarity Clear (Clear); Glucose, Urine (Dipstick) Normal (Negative); Ketone, Urine Negative (Negative); Leukocyte Negative Leu/uL (Negative); Nitrite Negative (Negative); Protein, Urine (Dipstick) Negative (Neg-Trace); Specific Gravity, Urine 1.013 (1.002-1.036); Urobilinogen Normal mg/dL (Less than 2); pH, Urine 7.5 (5.0-9.0)
--- NOTE | 2019-11-28 05:21 | PDOC.FM ---
- Subjective Subjective: Patient has no complaints this morning. She denies any epigastric pain, headache , nausea, vomiting, CP, or SOB. - Objective MAR Reviewed: Yes Vital Signs & Weight: Vital Signs (12 hours) Temp Pulse Resp BP Pulse Ox 11/27/19 19:14 98.2 F 63 18 150/71 H 99 Result Diagrams: 11/28/19 03:02 11/28/19 03:02 Phys Exam - Physical Examination Constitutional: NAD HEENT: PERRLA, moist MMs, sclera anicteric Neck: full ROM Respiratory: no wheezing, no rales, no rhonchi, clear to auscultation bilateral Cardiovascular: RRR, no significant murmur, no rub Gastrointestinal: soft, non-tender, no distention, positive bowel sounds Musculoskeletal: no edema, pulses present Neurological: moves all 4 limbs Psychiatric: normal affect, A&O x 3 Dx/Plan - Plan Plan: 69 yo F with a PMH of HTN and afib s/p pacemaker complaining of epigastric pain. Atypical Chest pain r/o ACS Patient with chest pain more located in the epigastric pain, relieved with promethazine, and no exacerbated with exercise. CXR normal. EKG showing atrial pace rhythm, mild LVH, otherwise normal. HEART score of 7 due to hx and risk factors. Suspect symptoms more likely due to GERD as opposed to ACS. - Trop .03> less than .01>.01 - TSH 0.66 - Stress test today - Risk stratification - see lipids from July 2019 below. A1c 5.5 in July 2019. - Nitro PRN, zofran PRN - Consider cardiology consult pending stress test results Hypokalemia -K 3.4 -will replace HTN - Will continue home meds, PRNs available Afib s/p pacemaker Pacemaker placed on 10/13/29 - Will monitor on tele HLD Chol: 168, LDL 104, HDL 44, TG 102. ASCVD risk > 10%. (07/2019) - Continue home meds, consider high int statin Hypothyroidism - On levothyroxine 100mcg daily, will continue. TSH 0.66 Dispo: admit to tele, obs. LOS <48hrs PCP: Geronimo Diet: Ppx: lovenox
[2019-11-28] MEDS ORDERED: Potassium Chloride 20 MEQ TAB PO SCH (08:00)
[2019-11-28] MEDS ORDERED: Famotidine 20 MG TAB PO SCH (10:45)
[2019-11-28] MEDS ORDERED: Regadenoson 0.4 MG/5 ML SYRINGE ONE (11:53)
[2019-11-28] MEDS: Pantoprazole 40 MG GRANULES PACKET PO SCH (14:41)
[2019-11-28] MEDS: Enoxaparin Sodium 40 MG/0.4 ML SYRINGE SC SCH (14:41)
[2019-11-28] MEDS: Aspirin 325 mg Enteric Coated Tablet PO SCH (14:43)
[2019-11-28 15:23] VITALS: BMI 38.2
--- NOTE | 2019-11-28 17:43 | HP ---
Please see the history and physical done by Dr. Boland for which I agree. The patient was seen, evaluated, discussed, and examined with the residents by bedside. Please also see Dr. Templeton's progress note for which I agree. HISTORY OF PRESENT ILLNESS: A 69-year-old with known heart disease, whose last stress test was little bit over a year ago. Comes in with epigastric and chest discomfort. Known hiatal hernia and potentially related to that. Denies reflux type symptoms otherwise. Denies much shortness of breath, but she does state it feels different than her usual heartburn and with her history of atrial fibrillation and flutter and pacemaker . PAST MEDICAL HISTORY: All per Dr. Boland's history and physical for which I agree. PAST SURGICAL HISTORY: All per Dr. Boland's history and physical for which I agree. FAMILY HISTORY: All per Dr. Boland's history and physical for which I agree. SOCIAL HISTORY: All per Dr. Boland's history and physical for which I agree. MEDICATIONS: All per Dr. Boland's history and physical for which I agree. REVIEW OF SYSTEMS: All per Dr. Boland's history and physical for which I agree. PHYSICAL EXAMINATION: VITAL SIGNS: Afebrile. Vital signs are stable. GENERAL: No apparent distress. No respiratory distress. ENT: Normal. CHEST: Clear. HEART: Regular rate and rhythm. ABDOMEN: Benign. EXTREMITIES: No edema. LABORATORY DATA: Labs reviewed, looks pretty benign. ASSESSMENT/PLAN: Atypical chest pain. We will get a stress test on her to make sure she is okay and if it is normal, she will be discharged and likely treat her like it is reflux with antacids and Bentyl. We will continue proton pump inhibitor in the meantime. Otherwise, we will continue all other home medications for hypertension, atrial fibrillation, pacemaker, hypothyroid, etc. Job ID: [id number]
[2019-11-28] MEDS: Lisinopril/Hydrochlorothiazide 20 mg/12.5 mg Tablet PO SCH (20:17)
[2019-11-28] MEDS: Famotidine 20 MG TAB PO SCH (20:18)
[2019-11-28] MEDS ORDERED: Atorvastatin Calcium 10 MG TAB PO SCH (21:00)
--- NOTE | 2019-11-29 05:28 | PDOC.FM ---
- Subjective Subjective: Patient is feeling well this morning. She has not eaten much the past few days and says her epigastric pain has improved. She also reports decreased bloating in her abdomen. Ms. Hardwick is eager to go home. - Objective Vital Signs & Weight: Vital Signs (12 hours) Temp Pulse Resp BP BP Pulse Ox 11/29/19 04:18 97.9 F 64 20 140/69 98 11/29/19 00:10 98.4 F 66 18 147/79 H 97 11/28/19 20:17 70 138/69 11/28/19 19:30 97.7 F 70 20 138/69 98 Weight Weight 108.409 kg I&O: 11/27/19 11/28/19 11/29/19 06:59 06:59 06:59 Intake Total 240 Output Total 400 Balance -160 Result Diagrams: 11/28/19 03:02 11/29/19 05:34 EKG Reviewed by me: Yes (tele: paced rhythm, 60s) Phys Exam - Physical Examination Constitutional: NAD HEENT: PERRLA, moist MMs, sclera anicteric Neck: full ROM Respiratory: no wheezing, no rales, no rhonchi, clear to auscultation bilateral Cardiovascular: no significant murmur, no rub paced rhythm Gastrointestinal: soft, non-tender, no distention, positive bowel sounds Musculoskeletal: no edema, pulses present Neurological: moves all 4 limbs Psychiatric: normal affect, A&O x 3 Dx/Plan - Plan Plan: 69 yo F with a PMH of HTN and afib s/p pacemaker complaining of epigastric pain. Atypical Chest pain r/o ACS Patient with chest pain more located in the epigastric pain, relieved with promethazine, and no exacerbated with exercise. CXR normal. EKG showing atrial pace rhythm, mild LVH, otherwise normal. HEART score of 7 due to hx and risk factors. Suspect symptoms more likely due to GERD as opposed to ACS. Patient has history of hiatal hernia. - Trop .03> less than .01>.01 - TSH 0.66 - 2 day stress test should be completed today. - Risk stratification - see lipids from July 2019 below. A1c 5.5 in July 2019. - Nitro PRN, zofran PRN - Consider cardiology consult pending stress test results - Patient started on pepcid Hypokalemia - resolved after replacement - K 3.4>3.9 HTN - Will continue home meds, PRNs available Afib s/p pacemaker Pacemaker placed on 10/13/29 - Will monitor on tele HLD Chol: 168, LDL 104, HDL 44, TG 102. ASCVD risk > 10%. (07/2019) -Atorvastatin will continue with discharge Hypothyroidism - On levothyroxine 100mcg daily, will continue. TSH 0.66 Dispo: admit to tele, obs. LOS <48hrs PCP: Geronimo Diet: OLMAN Ppx: lovenox
[2019-11-29] MEDS ORDERED: Levothyroxine Sodium 100 MCG TAB PO SCH (06:00)
[2019-11-29 06:07] LABS: Anion Gap 9 mmol/L (10-20); BUN (Urea Nitrogen) 15 mg/dL (9.8-20.1); Calc. Creatinine Clearance 99 mL/min (70-130); Calcium 9.3 mg/dL (7.8-10.44); Carbon Dioxide 31 mmol/L (23-31); Chloride 105 mmol/L (98-107); Estimated GFR-MDRD 59; Glucose 90 mg/dL (80-115); Potassium 3.9 mmol/L (3.5-5.1); Sodium 141 mmol/L (136-145)
[2019-11-29] MEDS: Aspirin 325 mg Enteric Coated Tablet PO SCH (08:13)
[2019-11-29] MEDS: Pantoprazole 40 MG GRANULES PACKET PO SCH (08:13)
[2019-11-29] MEDS: Lisinopril/Hydrochlorothiazide 20 mg/12.5 mg Tablet PO SCH (08:14)
[2019-11-29] MEDS: Enoxaparin Sodium 40 MG/0.4 ML SYRINGE SC SCH (08:15)
[2019-11-29] MEDS ORDERED: Cholecalciferol 1,000 UNITS (25 MCG) TAB PO SCH (09:00)
[2019-11-29] MEDS ORDERED: Cyanocobalamin (Vitamin B-12) 1,000 MCG TAB PO SCH (09:00)
[2019-11-29] MEDS: Famotidine 20 MG TAB PO SCH (10:00)
--- NOTE | 2019-11-29 10:17 | NM ---
EXAM: Nuclear medicine cardiac perfusion examination with ejection fraction HISTORY: Chest pain TECHNIQUE: Rest images: 29.6 mCi technetium 99m sestamibi Stress images: 30.5 mCi of technetium 9M sestamibi; Lexiscan COMPARISON: 03/01/2016 FINDINGS: Tomographic images: There is a small sized, moderate intensity fixed perfusion defect at the apex. No reversible perfusion defects are seen. Gated images: Normal wall motion and ejection fraction of 67%. EDV: 112 mL LHR: 0.4 TID: 1.1 IMPRESSION: Fixed perfusion defect at the apex may be secondary to prior infarction. There is no evid ence of ischemia on this exam.
[2019-11-29 11:20] VITALS: BP 143/73; TEMP 97.7
--- NOTE | 2019-11-29 16:14 | PRG ---
DATE OF SERVICE: 11/29/[address] Please see note [address]. Kofi Templeton, for which I agree. The patient was seen, evaluated, discussed, and examined with residents at bedside. The patient is currently undergoing the stress portion of her stress test and still having some epigastric type discomfort. Certainly, it sounds like this is more likely hiatal hernia, reflux type issue and very unlikely that it is cardiac, but with all her cardiac history normal, will be discharged on proton pump inhibitors and likely dicyclomine or something similar and could follow up with GI if that does not improve. Job ID: [id number]
--- NOTE | 2019-12-01 03:29 | DIS ---
DATE OF ADMISSION: 11/27/2019 DATE OF DISCHARGE: 11/29/2019 RESIDENT: Kofi Templeton MD ADMITTING ATTENDING: Parveen Cordoba MD DISCHARGE ATTENDING: Parveen Cordoba MD CONSULTS: None. PROCEDURES: None. PRIMARY DIAGNOSIS: Atypical chest pain, rule out acute coronary syndrome. SECONDARY DIAGNOSES: Hypertension; atrial fibrillation, status post pacemaker; hyperlipidemia; hypothyroidism. DISCHARGE MEDICATIONS: 1. Lisinopril and hydrochlorothiazide 0.5 tab p.o. b.i.d. 2. Vitamin B12 5000 mcg p.o. daily. 3. Vitamin D3 8000 units p.o. daily. 4. Synthroid 100 mcg p.o. daily. 5. Metoprolol 25 mg p.o. b.i.d. 6. Flecainide acetate 100 mg p.o. b.i.d. 7. Eliquis 5 mg p.o. b.i.d. 8. Protonix 40 mg p.o. daily. 9. Atorvastatin 40 mg p.o. daily. DISCONTINUED MEDICATIONS: 1. Pravastatin 40 mg p.o. at bedtime. 2. Potassium gluconate 99 mg p.o. daily. HISTORY OF PRESENT ILLNESS/HOSPITAL COURSE: Ms. Hardwick is a 69-year-old female who presented to the ER due to worsening epigastric pain. She states that after her exercise class the day before, she started to have epigastric pain and her systolic blood pressure was elevated at 150. She denied any nausea, vomiting, diarrhea, or diaphoresis at that time. Pain is not made worse with exercise or deep breaths and she denies palpitations. She does think it gets worse with large meals or drinking too may fluids. Nothing has made the pain better. At the time of presentation, patient's pain had already improved. She describes the pain as pressure, nonradiating, constant. She endorses shortness of breath that has worsened over the last day. She denies cough, fever, chills. She says the shortness of breath is made worse by lying flat and she is not gasping for air at night. She denies any swelling in her legs. She recently had a pacemaker placed on October 14, 2019. Of note, her PCP has told her she has a diaphragmatic hernia. She thinks she had a stress test last December in [facility]iology [facility] and it was normal. She has never had a cath. During admission, the patient received a 2-day stress test which showed fixed perfusion defect at the apex that maybe secondary to prior infarction. There is no evidence of ischemia on the exam. The patient was discharged and told to follow up with her PCP as well as prescribed Protonix due to the fact that this pain maybe due to GERD. While on the hospital, the patient's troponins were 0.03, less than 0.01 and 0.01. She had a negative TSH. Chest x- ray was normal. Patient's statin was changed to a high-intensity statin. DISPOSITION: Stable. DISCHARGE INSTRUCTIONS: 1. Location: Home. 2. Diet: Heart healthy. 3. Activity: No restrictions. 4. Followup: Follow up PCP in 6 to 8 weeks. Job ID: [id number] MTDD
== END 2019-11-29 16:03 | disposition home or self-care (01) ==
LOC: ERS 18:53 → ERHOLD 21:45 → 2NO 11-28 14:23
PROVIDERS: ADMIT Family Medicine; ATTEND Family Medicine
DX: R07.89 Other chest pain (principal); I10 Essential (primary) hypertension; I48.20 Chronic atrial fibrillation, unspecified; E78.5 Hyperlipidemia, unspecified; E03.9 Hypothyroidism, unspecified; E87.6 Hypokalemia; I25.10 Atherosclerotic heart disease of native coronary artery without angina pectoris; R11.0 Nausea; R06.02 Shortness of breath; E66.9 Obesity, unspecified; Z68.37 Body mass index [BMI] 37.0-37.9, adult; Z87.891 Personal history of nicotine dependence; Z79.01 Long term (current) use of anticoagulants; Z79.899 Other long term (current) drug therapy; Z91.040 Latex allergy status; Z91.048 Other nonmedicinal substance allergy status; Z95.0 Presence of cardiac pacemaker
CPT/HCPCS: 71045; 78452; 80048 ×2; 81003 ×2; 82550; 82553; 83690; 83880; 84484 ×3; 85025; 85610; 85730; 87086; 93005; 93017; 96374; 99285; A9500; 36415; 80053; 84443; 96372; G0378; J1650; J2550; J2785

== ENCOUNTER 2020-02-16 09:46 | Observation (INO) | payer MEDICARE, OTHER ==
[2020-02-16] MEDS ORDERED: Aspirin Chewable 81 MG TAB ONE (10:22)
[2020-02-16] MEDS ORDERED: Nitroglycerin 2% Ointment 1 INCH/1 GM Packet ONE (10:22)
--- NOTE | 2020-02-16 10:24 | RAD ---
XR Chest 1 View Portable HISTORY: Chest pain irregular heartbeat COMPARISON: 11/27/2019 FINDINGS: The heart size is at upper limits of normal. Left-sided pacemaker device remains in place. The aorta is tortuous The lungs are well expanded without focal areas of consolidation, pneumothorax or pleural effusions. IMPRESSION: No radiographic evidence of acute cardiopulmonary process.
[2020-02-16 10:44] LABS: ALT (SGPT) 10 U/L (8-55); AST (SGOT) 15 U/L (5-34); Albumin 4.4 g/dL (3.4-4.8); Alkaline Phosphatase 92 U/L (40-110); Anion Gap 13 mmol/L (10-20); BUN (Urea Nitrogen) 18 mg/dL (9.8-20.1); Bilirubin, Total 0.6 mg/dL (0.2-1.2); CK (CPK) 37 U/L (29-168); Calc. Creatinine Clearance 0 mL/min (70-130); Calcium 9.7 mg/dL (7.8-10.44); Carbon Dioxide 27 mmol/L (23-31); Chloride 103 mmol/L (98-107); Estimated GFR-MDRD 56; Globulin 3.6 g/dL (2.4-3.5); Glucose 95 mg/dL (80-115); Lipase 23 U/L (8-78); Potassium 3.2 mmol/L (3.5-5.1); Sodium 140 mmol/L (136-145)
--- NOTE | 2020-02-16 11:27 | PDOC.FPRHP ---
- History of Present Illness Chief Complaint: malaise History of Present Illness: 69 y/o F with PMHx afib, htn s/p ablation in 2018 and s/p pacemaker 10/2019 presented to ED for malaise, elevated heart rate. She states she has been feeling generally unwell since just before bed last night. She reports she was having difficulty sleeping due to restlessness and had some pain over her scar where her pacemaker was placed in October. While fixing breakfast this AM her apple watch notified her of a HR 125. She took her thyroid medication and prednisone this morning. She had not yet taken any of her blood pressure or afib med ications. She report mild SOB with exertion, mild headache, congestion which she attributes to allergies. She also describes a focal area of back pain beneath the scapula that is worse with reaching her arm behind her. Denies any chest pain, SOB at rest, edema, fever, chills, cough. Reports she checked her BP at home before coming to the hospital and it was in 140s/90s. She states she has been on a 6 day course of prednisone, tapering by 1 tab each day, that was started for rash and itching after walking around in the oak trees in her yard; currently on day 4, unsure of dosing. Of note, she has a rash on her RUE. States it developed after having her BP checked in ED. She is allergic to several materials including latex and adhesive tape. Cardiac history also significant for ACS r/o admission 11/2019 with 2-day stress test revealing a fixed apical defect but no areas of reversible change. - Allergies/Adverse Reactions Allergies Allergy/AdvReac Type Severity Reaction Status Date / Time adhesive tape Allergy Verified 02/16/20 13:15 latex Allergy Verified 02/16/20 13:15 - Home Medications Medication Instructions Recorded Confirmed Type Lisinopril/Hydrochlorothiazide 0.5 tab PO BID 05/15/14 02/16/20 History [Prinizide] Cholecalciferol (Vitamin D3) 8,000 units PO DAILY 10/17/17 02/16/20 History [[id number]] Cyanocobalamin (Vitamin B-12) 5,000 mcg PO DAILY 10/17/17 02/16/20 History [Vitamin B-12] Levothyroxine Sodium [Synthroid] 100 mcg PO DAILY 08/09/19 02/16/20 History Metoprolol Succinate 25 mg PO BID 10/11/19 02/16/20 History Apixaban [Eliquis] 5 mg PO BID #0 10/14/19 02/16/20 Rx Flecainide Acetate 100 mg PO BID #60 tablet 10/14/19 02/16/20 Rx Pantoprazole [Protonix] 40 mg PO DAILY #30 pk 11/29/19 02/16/20 Rx Pravastatin Sodium 40 mg PO HS 02/16/20 02/16/20 History - History PMHx: HTN, hypothyroidism, Afib s/p pacemaker PSHx: Tubal ligation, tonsillectomy, Atrial ablation (03/24, 12/29), pacemaker (10/14/19) FHx: Noncontributory Social: Smoked a couple of cigarettes a day over 40 years ago. Does not drink or use recreational drugs. - Review of Systems General: reports: fatigue. denies: fever/chills Eyes: denies: vision changes ENT: reports: nasal congestion (due to allergies) Respiratory: reports: shortness of breath. denies: cough, congestion Cardiovascular: reports: palpitation. denies: chest pain, edema Gastrointestinal: denies: nausea, vomiting, diarrhea, constipation, abdominal pain Genitourinary: denies: dysuria Skin: reports: rashes (from blood pressure cuff) Musculoskeletal: reports: pain (back pain). denies: swelling Neurological: denies: numbness, syncope - Vital signs BP: 166/104 (Lying), MAP: 124, Pulse: 61, Resp: 20, Temp: 97.5 (Oral), Pain: 0, O2 sat: 99 on (Room Air WT: 104.33 kg - Physical Exam Constitutional: NAD, awake, alert and oriented HEENT: normocephalic and atraumatic, EOMI, conjunctiva clear, no scleral icterus, grossly normal vision, grossly normal hearing, MMM Neck: supple Chest: no-tender to palpation Heart: RRR, normal S1/S2, pulses present, no edema Lungs: CTAB, no respiratory distress Abdomen: soft, non-tender, bowel sounds present Musculoskeletal: normal structure, normal tone Neurological: no focal deficit Skin: other (erythematous rash in streaks on R upper arm, R great toe) Heme/Lymphatic: no unusual bruising or bleeding Psychiatric: normal mood and affect, good judgment and insight, intact recent and remote memory FMR H&P: Results - Labs Result Diagrams: 02/16/20 12:57 02/16/20 10:04 Lab results: Sodium 140 mmol/L (136-145) 02/16/20 10:04 Potassium 3.2 mmol/L (3.5-5.1) L 02/16/20 10:04 Chloride 103 mmol/L (98-107) 02/16/20 10:04 Carbon Dioxide 27 mmol/L (23-31) 02/16/20 10:04 BUN 18 mg/dL (9.8-20.1) 02/16/20 10:04 Creatinine 0.99 mg/dL (0.6-1.1) 02/16/20 10:04 Glucose 95 mg/dL (80-115) 02/16/20 10:04 Calcium 9.7 mg/dL (7.8-10.44) 02/16/20 10:04 Total Bilirubin 0.6 mg/dL (0.2-1.2) 02/16/20 10:04 AST 15 U/L (5-34) 02/16/20 10:04 ALT 10 U/L (8-55) 02/16/20 10:04 Alkaline Phosphatase 92 U/L (40-110) 02/16/20 10:04 Creatine Kinase 37 U/L (29-168) 02/16/20 10:04 B-Natriuretic Peptide 108.3 pg/mL (0-100) H 02/16/20 10:04 Serum Total Protein 8.0 g/dL (6.0-8.3) 02/16/20 10:04 Albumin 4.4 g/dL (3.4-4.8) 02/16/20 10:04 Lipase 23 U/L (8-78) 02/16/20 10:04 - EKG Interpretation EKG: EKG reviewed from ED: some pacer spikes noted, rate 60s, no ST changes FMR H&P: A/P - Problem List (1) Hypertensive urgency Current Visit: Yes Status: Acute Code(s): I16.0 - HYPERTENSIVE URGENCY (2) Hypokalemia Current Visit: Yes Status: Acute Code(s): E87.6 - HYPOKALEMIA (3) A-fib Current Visit: Yes Status: Chronic Code(s): I48.91 - UNSPECIFIED ATRIAL FIBRILLATION (4) HLD (hyperlipidemia) Current Visit: No Status: Chronic Code(s): E78.5 - HYPERLIPIDEMIA, UNSPECIF IED (5) Hypothyroidism Current Visit: No Status: Chronic Code(s): E03.9 - HYPOTHYROIDISM, UNSPECIFIED Comment: Continue [place] Thyroid 97.5mg daily (6) Contact dermatitis Current Visit: Yes Status: Acute Code(s): L25.9 - UNSPECIFIED CONTACT DERMATITIS, UNSPECIFIED CAUSE - Plan Hypertensive Urgency, ACS r/o Initial SBP in ED >200, improved with administration of nitro to 160s, SBP 140s on admission. No evidence of end organ damage, troponin less than 0.010 x 2. EKG with paced rhythm, no acute ST changes. Admitted for ACS r/o in 11/2019. Had 2 day stress test at that time which had a fixed apical defect but no reversible change. - monitor on tele overnight - monitor vitals overnight - continue home anti-hypertensives Malaise Suspect due to hypertensive urgency. Adverse effect of recent outpatient prednis one therapy is also a consideration. - will check CBC to r/o anemia - continue to monitor for symptoms Atrial fibrillation without RVR Regular rhythm on exam today. Reportedly tachycardic on apple watch at home to 125, but no evidence of tachycardia since hospital arrival. She is s/p ablation x2 and s/p pacemaker 10/2019. Pacemaker interrogated in ED, no evidence of arrhyt hmia. - continue home medications - monitor on tele overnight Hypokalemia Mild, 3.2 on admission. - replaced with 40 meq PO - recheck BMP in AM Contact dermatitis Rash on R upper arm consistent with contact dermatitis after use of BP cuff. - continue to monitor - consider use of low to medium potency topical corticosteroid ointment if symptoms are bothersome Hypothyroidism Compliant with levothyroxine. TSH wnl. - continue home med Hyperlipidemia Controlled per lipid panel 12/2019. - continue home statin Disposition/LOS: Dispo: LOS < 2 days, tele obs DVT ppx: home eliquis Diet: HH Fluids: SL FMR H&P: Upper Level - Plan Date/Time: 02/16/20 1125 IDorie, have evaluated this patient and agree with findings/plan as outlined by program management intern resident. Pertinent changes/additions are listed here. 69 yo F with PMH HTN, hypothyroid, afib s/p ablation/pacemaker that presents for feeling off and rapid heart rate. She reports difficulty sleeping last night. This morning she did not feel well and her apple watch noted pulse of 120s. Home BP check was 140/80s. Denies chest pain. Reports shortness of breath and some dizziness. No cough, has some allergy related congestion. No N, V, diarrhea, abdominal pain, reflux. She is feeling better since presentation but feels a little "off". VS: 166/104, 61, 16, 100% on RA PE: Gen: NAD HEENT: Moist MM, Heart: RRR, no murmurs or extra sounds. Distal pulses 2+ Lungs: CTAB, no wheezing. No increased work of breathing Abd: soft, nontender, BS+, no masses or hernias Ext: no cyanosis or edema Skin: scattered areas of contact dermatitis Psych: AOx3 69 yo F with PMH, HTN, hypothyroid, afib s/p ablation/pacemaker is admitted with hypertensive urgency. Hypertensive Urgency - BP 140/80s this am at home but initial ED BP recorded 206/122, improved down to 166/104 with 1 inch nitro paste - No signs of end organ damage - Restart home BP meds - Initial trop neg, trend Hx afib s/p pacemaker - Tachycardia noted at home, though not present since presented to ED. Pacemaker interrogated in ED was normal per nurse, report to be faxed. Will check CBC as well. - Monitor on telemetry - Continue home meds Hypothyroid -recheck TSh Hypokalemia - Replace K+ and recheck in am PCP: Geronimo Attending: Nicholas IVF: SL Dispo: admit to telemetry for observation, expected LOS <48h Addendum - Attending - Attending Attestation Date/Time: 02/16/20 7981 I personally evaluated the patient and discussed the management with Dr. Rose/Thalia Dong. I agree with the History, Examination, Assessment and Plan documented above with any addition or exceptions noted below.
[2020-02-16] MEDS ORDERED: Potassium Chloride 20 MEQ TAB PO SCH (12:15)
[2020-02-16] MEDS ORDERED: Apixaban 5 MG TAB PO SCH (12:30)
[2020-02-16 12:37] VITALS: BMI 41.7
[2020-02-16 13:08] LABS: #Lymphocytes 1.2 thou/uL (1.20-3.40); #Monocytes 0.4 thou/uL (0.11-0.59); #Neutrophils 10.8 thou/uL (1.40-6.50); %Basophils 0.3 % (0.0-1.0); %Eosinophils 0.2 % (0.0-10.0); %Lymphocytes 9.5 % (21.0-51.0); %Monocytes 3.3 % (0.0-10.0); %Neutrophils 86.6 % (42.0-75.0); Hemoglobin 13.4 g/dL (12.0-16.0); Mean Corpuscular HGB CONC 32.7 g/dL (32.0-36.0); Mean Corpuscular Hemoglobin 28.5 pg (27.0-31.0); Mean Corpuscular Volume 87.1 fL (78.0-98.0); Mean Platelet Volume 8.8 fL (7.4-10.4); Platelet Count 281 thou/uL (130-400); RBC Distribution Width 13.5 % (11.5-14.5); Red Blood Cell (RBC) Count 4.69 mill/uL (4.20-5.40); White Blood Cell (WBC) Count 12.4 thou/uL (4.8-10.8)
[2020-02-16 13:30] LABS: Troponin I Less than 0.010 ng/mL (< 0.028)
[2020-02-16] MEDS: Acetaminophen 325 MG TAB PO PRN ×2 (15:01→20:42)
[2020-02-16 18:24] LABS: Magnesium 2.3 mg/dL (1.6-2.6); Phosphorus 3.8 mg/dL (2.3-4.7)
[2020-02-16 18:29] LABS: Troponin I Less than 0.010 ng/mL (< 0.028)
[2020-02-16] MEDS: Apixaban 5 MG TAB PO SCH (20:40)
[2020-02-16] MEDS: Flecainide 50 MG TAB PO SCH (20:40)
[2020-02-16] MEDS: Lisinopril/Hydrochlorothiazide 20 mg/12.5 mg Tablet PO SCH (20:42)
[2020-02-16] MEDS ORDERED: Atorvastatin Calcium 10 MG TAB PO SCH (21:00)
[2020-02-17 04:41] LABS: #Eosinphils 0.1 thou/uL (0.0-0.7); #Lymphocytes 3.4 thou/uL (1.20-3.40); #Neutrophils 7.5 thou/uL (1.40-6.50); %Basophils 0.4 % (0.0-1.0); %Eosinophils 1.1 % (0.0-10.0); %Lymphocytes 28.4 % (21.0-51.0); %Monocytes 8.1 % (0.0-10.0); %Neutrophils 62.1 % (42.0-75.0); Hemoglobin 12.8 g/dL (12.0-16.0); Mean Corpuscular HGB CONC 31.7 g/dL (32.0-36.0); Mean Corpuscular Hemoglobin 27.5 pg (27.0-31.0); Mean Corpuscular Volume 86.8 fL (78.0-98.0); Mean Platelet Volume 8.7 fL (7.4-10.4); Platelet Count 261 thou/uL (130-400); RBC Distribution Width 13.4 % (11.5-14.5); Red Blood Cell (RBC) Count 4.66 mill/uL (4.20-5.40); White Blood Cell (WBC) Count 12.1 thou/uL (4.8-10.8)
[2020-02-17 05:39] LABS: Anion Gap 15 mmol/L (10-20); BUN (Urea Nitrogen) 19 mg/dL (9.8-20.1); Calc. Creatinine Clearance 110 mL/min (70-130); Carbon Dioxide 26 mmol/L (23-31); Chloride 104 mmol/L (98-107); Estimated GFR-MDRD 66; Glucose 84 mg/dL (80-115); Potassium 3.8 mmol/L (3.5-5.1); Sodium 141 mmol/L (136-145)
[2020-02-17] MEDS ORDERED: Levothyroxine Sodium 100 MCG TAB PO SCH (06:00)
--- NOTE | 2020-02-17 06:03 | PDOC.FM ---
- Subjective Subjective: No acute overnight events. Reports her headache has resolved, she is no longer feeling malaised. No events on tele overnight, has been atrial paced rhythm in 60s. She has been wearing her sleeve between her arm and her BP cuff, and her contact dermatitis has improved. Denies chest pain, SOB, headache, palpitations. Headache improved with tylenol and removal of nitro patch. - Objective Vital Signs & Weight: Vital Signs (12 hours) Temp Pulse Resp BP BP Pulse Ox 02/17/20 04:10 147/79 H 02/17/20 03:30 96.6 F L 65 16 176/77 H 98 02/16/20 23:10 97.8 F 65 18 120/58 L 94 L 02/16/20 20:42 62 140/60 02/16/20 19:35 97.8 F 62 16 140/60 97 Weight Weight 110.268 kg I&O: 02/15/20 02/16/20 02/17/20 06:59 06:59 06:59 Intake Total 1010 Balance 1010 Result Diagrams: 02/17/20 04:28 02/17/20 04:28 EKG Reviewed by me: Yes (a paced, v sensed on tele, rate 60s) Phys Exam - Physical Examination Constitutional: NAD HEENT: moist MMs Respiratory: clear to auscultation bilateral Cardiovascular: RRR, no significant murmur Gastrointestinal: soft, non-tender, no distention, positive bowel sounds Musculoskeletal: no edema, pulses present Neurological: non-focal, moves all 4 limbs Psychiatric: normal affect, A&O x 3 Deviation from normal: mild erythema R upper arm, irritation around areas of tape Dx/Plan (1) Hypertensive urgency Code(s): I16.0 - HYPERTENSIVE URGENCY Status: Acute (2) Hypokalemia Code(s): E87.6 - HYPOKALEMIA Status: Acute (3) A-fib Code(s): I48.91 - UNSPECIFIED ATRIAL FIBRILLATION Status: Chronic (4) HLD (hyperlipidemia) Code(s): E78.5 - HYPERLIPIDEMIA, UNSPECIFIED Status: Chronic (5) Hypothyroidism Code(s): E03.9 - HYPOTHYROIDISM, UNSPECIFIED Status: Chronic (6) Contact dermatitis Code(s): L25.9 - UNSPECIFIED CONTACT DERMATITIS, UNSPECIFIED CAUSE Status: Acute - Plan Plan: Hypertensive Urgency, ACS r/o Initial SBP in ED >200, improved with administration of nitro to 160s, SBP 140s on admission. No evidence of end organ damage, troponin less than 0.010 x 2. EKG with paced rhythm, no acute ST changes. Admitted for ACS r/o in 11/2019. Had 2 day stress test at that time which had a fixed apical defect but no reversible change. - no tele events - troponin neg x3 - continue home anti-hypertensives Malaise Suspect due to hypertensive urgency. Adverse effect of recent outpatient prednisone therapy is also a consideration. - no anemia on CBC - continue to monitor for symptoms Atrial fibrillation without RVR Regular rhythm on exam today. Reportedly tachycardic on apple watch at home to 125, but no evidence of tachycardia since hospital arrival. She is s/p ablation x2 and s/p pacemaker 10/2019. Pacemaker interrogated in ED, no evidence of arrhythmia. - continue home medications - no tele events Leukocytosis Mild leukocytosis 12.5. Suspect due to recent corticosteroids. - continue to monitor Hypokalemia, resolved Mild, 3.2 on admission. - replaced with 40 meq PO - improved to 3.8 Contact dermatitis Rash on R upper arm consistent with contact dermatitis after use of BP cuff. - continue to monitor - consider use of low to medium potency topical corticosteroid ointment if symptoms are bothersome Hypothyroidism Compliant with levothyroxine. TSH wnl. - continue home med Hyperlipidemia Controlled per lipid panel 12/2019. - continue home statin Disposition/LOS: Dispo: likely DC to home today DVT ppx: home eliquis Diet: HH Fluids: SL Addendum - Attending - Attending Attestation Date/Time: 02/17/20 1117 I personally evaluated the patient and discussed the management with Dr. Rose. I agree with the History, Examination, Assessment and Plan documented above with any addition or exceptions noted below. Patient stable for discharge. No evidence for ACS or other serious issue.
[2020-02-17 07:48] VITALS: BP 136/64; TEMP 97.7
[2020-02-17] MEDS ORDERED: Cyanocobalamin (Vitamin B-12) 1,000 MCG TAB PO SCH (09:00)
[2020-02-17] MEDS ORDERED: Pantoprazole 40 MG GRANULES PACKET PO SCH (09:00)
[2020-02-17] MEDS ORDERED: Cholecalciferol 1,000 UNITS (25 MCG) TAB PO SCH (09:00)
[2020-02-17] MEDS: Lisinopril/Hydrochlorothiazide 20 mg/12.5 mg Tablet PO SCH (09:44)
[2020-02-17] MEDS: Apixaban 5 MG TAB PO SCH (09:44)
[2020-02-17] MEDS: Flecainide 50 MG TAB PO SCH (09:44)
--- NOTE | 2020-02-18 12:39 | DIS ---
DATE OF ADMISSION: 02/16/2020 DATE OF DISCHARGE: 02/17/2020 RESIDENT: Hollie Rose DO. CONSULTATIONS: None. PROCEDURES PERFORMED: None. PRIMARY DIAGNOSIS: Hypertensive urgency, rule out acute coronary syndrome. SECONDARY DIAGNOSES: Atrial fibrillation without rapid ventricular response, hypokalemia, contact dermatitis, hypothyroidism, hyperlipidemia. DISCHARGE MEDICATIONS: 1. Lisinopril/hydrochlorothiazide 20/12.5 mg one-half tablet p.o. b.i.d. 2. Vitamin B12, 5000 mcg p.o. daily. 3. Vitamin D3, 8000 units p.o. daily. 4. Levothyroxine 100 mcg p.o. daily. 5. Metoprolol succinate 25 mg p.o. b.i.d. 6. Flecainide 100 mg p.o. b.i.d. 7. Eliquis 5 mg p.o. b.i.d. 8. Protonix 40 mg p.o. daily. 9. Pravastatin 40 mg p.o. at bedtime. Discontinued medications, none. HOSPITAL COURSE: This is a 69-year-old female with a past medical history of atrial fibrillation, status post multiple ablations and recent pacemaker placement in October of 2019, who presented with chief complaint of feeling generally unwell and her Apple watch notifying her that her heart rate was 125. In the emergency department, she was found to have hypertensive urgency. Initial systolic blood pressures in the ER were greater than 200 which improved to 160s with one dose of nitroglycerin into the normal range with administration of her home blood pressure medications, which she has not yet taken prior to arrival. Her pacemaker was interrogated and was unremarkable. She was admitted overnight and monitored on tele, remained in A paced and V sensed rhythm with rate in the 60s throughout her admission. Her blood pressure remained controlled and her symptoms had resolved. Her cardiac enzymes and EKG were within normal limits. No further cardiac testing was pursued as the patient had a stress test in November of 2019 revealing no reversible change. Reportedly, she was taking prednisone for 2 to 3 days prior to admission for generalized itching after exposure to oak pollen. Unclear, if prednisone was the cause of her restlessness. Itching had resolved at the time of discharge and recommended holding prednisone in discussing whether she should continue this medication with her PCP. DISPOSITION: Stable. DISCHARGE INSTRUCTIONS: 1. Location, home. 2. Diet, heart healthy. 3. Activity, as tolerated. 4. Follow up with your PCP within one week. Job ID: [id number]
--- NOTE | 2020-02-27 13:00 | EKG ---
Test Reason : Blood Pressure : / mmHG Vent. Rate : 066 BPM Atrial Rate : 065 BPM P-R Int : 000 ms QRS Dur : 098 ms QT Int : 416 ms P-R-T Axes : 000 -11 011 degrees QTc Int : 436 ms Electronic atrial pacemaker Minimal voltage criteria for LVH, may be normal variant Septal infarct , age undetermined Abnormal ECG Confirmed by MADISON DAVIS, ([id number]), managing editor YURIDIA MAHAJAN ([id number]) on 02/27/2020 1:00:42 PM Referred By: Confirmed By:MICHAEL WALLACE MD
== END 2020-02-17 12:09 | disposition home or self-care (01) ==
LOC: ERS 09:46 → 2SW 11:15
PROVIDERS: ADMIT Student in an Organized Health Care Education/Training Program; ATTEND Student in an Organized Health Care Education/Training Program
DX: I16.0 Hypertensive urgency (principal); E87.6 Hypokalemia; I48.91 Unspecified atrial fibrillation; E78.5 Hyperlipidemia, unspecified; E03.9 Hypothyroidism, unspecified; L25.9 Unspecified contact dermatitis, unspecified cause; D72.829 Elevated white blood cell count, unspecified; Z79.01 Long term (current) use of anticoagulants; Z79.899 Other long term (current) drug therapy; Z91.040 Latex allergy status; Z91.048 Other nonmedicinal substance allergy status; Z95.0 Presence of cardiac pacemaker
CPT/HCPCS: 36415; 71045; 80048; 80053; 82550; 83690; 83735; 83880; 84100; 84443; 84484; 85025; 85379; 93005; 96360; 96361; G0378

== ENCOUNTER 2020-02-23 09:56 | Outpatient (CLI) | payer MEDICARE, OTHER ==
--- NOTE | 2020-02-23 12:54 | CT ---
CT CHEST WITHOUT CONTRAST: Date: 02/23/2020 HISTORY: Follow-up lung nodules. COMPARISON: 08/09/2019. FINDINGS: The pleural based solid appearing 6.0 mm nodule in the anterolateral aspect of the right middle lobe is stable. The other two tiny right middle lobe nodules (3 mm) are also stable. The 5.0 mm solid nodule in the posterior aspect of the right upper lobe is also stable. In the right lower lobe is a peripheral stable 5.0 mm nodule. The 5.0 mm solid nodule in the left lung base is stable. The calcified tiny nodule in the left lower lobe is also stable. There is no evidence of aneurysmal dilatation of the thoracic aorta. No pleural or pericardial effusi ons are seen. There are degenerative changes in the spine. The large fat-containing diaphragmatic her yanet in the left posterior lower chest is again seen. A small hiatal hernia is again noted. IMPRESSION: Stable exam. RECOMMENDATION: A follow-up CT scan of the chest without IV contrast should be performed in 12 months. POS: JIMBO
== END 2020-02-23 09:57 | disposition home or self-care (01) ==
LOC: SCSCT 09:56
PROVIDERS: ATTEND Internal Medicine Interventional Cardiology
DX: R91.1 Solitary pulmonary nodule (principal)
CPT/HCPCS: 71250

== ENCOUNTER 2020-03-07 11:45 | Observation (INO) | payer MEDICARE, OTHER ==
--- NOTE | 2020-03-07 13:56 | PDOC.FPRHP ---
- History of Present Illness Chief Complaint: palpitations History of Present Illness: This is a 69yo F with a hx of paroxysmal AFib who presented to the ED for palpitations. About 1 wk ago she started feeling "not right" and lethargic. This morning, she felt palpitations and put on her smart watch which showed a HR in t he 130s so she knew she was in AFib and called EMS. En route, she spontaneously converted. She was recently seen in October for this, at which time her Flecainide was increased and a pacemaker was placed for bradycardia. She has a hx of ablation in 2011 and then again in 2019, followed by a cardioversion. She was taken to ED but requested transfer here d/t Dr. Rios being her psychiatric nursing aide. EKG from ED shows paced NSR. She was seen a few weeks ago for full-body flushing and HTN urgency. Since then, she has stopped taking certain medications to try to end to flushing. Two days ago, she stopped taking elderberry which she says she has been taking BID even though you are only supposed to take it daily. - Allergies/Adverse Reactions Allergies Allergy/AdvReac Type Severity Reaction Status Date / Time adhesive tape Allergy Verified 02/16/20 13:15 latex Allergy Verified 02/16/20 13:15 - Home Medications Medication Instructions Recorded Confirmed Type Lisinopril/Hydrochlorothiazide 0.5 tab PO BID 05/15/14 03/07/20 History [Prinizide] Cholecalciferol (Vitamin D3) 8,000 units PO DAILY 10/17/17 03/07/20 History [[id number]] Cyanocobalamin (Vitamin B-12) 5,000 mcg PO DAILY 10/17/17 03/07/20 History [Vitamin B-12] Levothyroxine Sodium [Synthroid] 100 mcg PO DAILY 08/09/19 03/07/20 History Metoprolol Succinate 50 mg PO BID 10/11/19 03/07/20 History Apixaban [Eliquis] 5 mg PO BID #0 10/14/19 03/07/20 Rx Flecainide Acetate 100 mg PO BID #60 tablet 10/14/19 03/07/20 Rx Pravastatin Sodium 40 mg PO HS 02/16/20 03/07/20 History FLUoxetine HCl [Prozac] 10 mg PO DAILY 03/07/20 03/07/20 History - History PMHx: AFib, HTN, HLD, hypothyroid No hx of HI, stroke, PE/DVT PSHx: 2 ablations, pacemaker placement, tonsillectomy, tubal ligation FHx: Significant fhx of CAD Social: No EtOH/tob/drugs. Live with and 2 kids - Review of Systems General: reports: fatigue. denies: fever/chills, weight/appetite/sleep changes Eyes: denies: vision changes Respiratory: reports: shortness of breath. denies: cough Cardiovascular: reports: palpitation. denies: chest pain, edema, orthopnea Gastrointestinal: denies: nausea, vomiting, diarrhea, abdominal pain Genitourinary: denies: dysuria, discharge Skin: reports: itching (Stopped today). denies: rashes Musculoskeletal: reports: pain (L LE). denies: swelling Neurological: denies: numbness, syncope - Vital signs BP: 153/85 HR: 73 RR: 16 Tmax: 98.5F Pox: 99% on RA Wt: 108.57kg - Physical Exam Constitutional: NAD, awake, alert and oriented, well developed (obese) HEENT: normocephalic and atraumatic, EOMI, grossly normal vision, grossly normal hearing, MMM Neck: supple, FROM Chest: no-tender to palpation, no lesions Heart: RRR, normal S1/S2, no murmurs/rubs/gallops, pulses present (2+ radial and dp b/l), no edema Lungs: CTAB, no respiratory distress, good air movement, no rales/rhonchi, no wheezing Abdomen: soft, non-tender, bowel sounds present, no masses/distention Musculoskeletal: normal structure, normal tone, ROM grossly normal Neurological: no focal deficit Skin: no rash/lesions Psychiatric: normal mood and affect, good judgment and insight, intact recent and remote memory FMR H&P: A/P - Plan This is a 69F who presented to the ED for palpitations and a HR in the 130s concerning d/t her hx of AFib AFib w pacemaker placement - Hx of AFib with 2 prior ablations, cardioversion, and now pacemaker placement - Spontaneously cardioverted prior to arrival - On tele for monitoring. Has been in paced NSR in the 70-80s since arrival - Dr. Rios is psychiatric nursing aide and was consulted, appreciate recs - EP was consulted per Dr. Rios's recommendation, appreciate recs - Continue home Metorprolol, Flecainide, Eliquis HTN - Chronic and POA - MD aware - Continue home meds Chronic problems - MD aware, continue home meds HLD Hypothyroidism Diet: HH DVT Ppx: home Eliquis IVF: N/A PCP: Dr. Melton Code: Full Dispo: tele obs, LOS likely >24h pending specialist recs FMR H&P: Upper Level - Plan Date/Time: 03/07/20 1356 Ms Hardwick is a 69yo female with pmh of afib s/p cardiac ablation in 2011 and 2018 and pacemaker 10/2019 who presents as a transfer from ED for afib with RVR. She presented for palpitations. For the last week hasnt been feeling right. Checked her HR on her smart watch and noted HR to be in 130s. Also endorses dizziness and dyspnea. Denies chest pain. When she arrived at ED she was in Afib with HR in 60s. Received ASA 325mg. PE: General: NAD CV: Irregularly irregular Pulm: CTA b/l Extremities: No edema Reviewed echo from 02/2016 which was normal. Stress test 11/2019 with fixed apical perfusion defect. A/P: Afib with RVR, RVR now resolved -Symptomatic Afib with hx of multiple ablations on flecanide and metoprolol continues to have episodes of Afib with RVR. Spontaneously converted back to NSR. Currently in NSR with HR 60-70s. EKG reviewed, NSR HR 67. Trops neg x2. CXR no acute findings. Will order Mg, Phos. Normal TSH on 02/15. Dr Rios is her psychiatric nursing aide, placed consult. Eliquis for anticoagulation. Continue metoprolol and flecanide. Admit to tele. I, Hellen Capellan, have evaluated this patient and agree with findings/plan as outlined by technology development intern resident. Pertinent changes/additions are listed here. Addendum - Attending - Attending Attestation Date/Time: 03/07/20 0252 I personally evaluated the patient and discussed the management with Dr. Estrada/Timi. I agree with the History, Examination, Assessment and Plan documented above with any addition or exceptions noted below. Patient with chronic Afib s/p PPM and multiple ablations here with recurrent symptomatic Afib. She felt unwell this morning, HR in 130s, once arrived at ED this had resolved. She reports some chest pain and shortness of breath during the episode. She has continued to take all medications as prescribed. On exam, she is now HR 70s, normotensive. Physical exam benign. Currently in NSR. Labs overall stable from previous. She will be admitted for Symptomatic chronic Afib with spontaneous resolution of RVR. Will discuss her rate control with her personal psychiatric nursing aide and further care pending those recommendations. Hoping an overnight admission but pending clinical course and tele monitoring.
[2020-03-07 14:45] VITALS: BMI 38.6
[2020-03-07] MEDS ORDERED: Acetaminophen 650 MG Suppository PR PRN (15:12)
[2020-03-07] MEDS ORDERED: Acetaminophen 325 MG TAB PO PRN (15:12)
[2020-03-07 16:20] LABS: Magnesium 2.2 mg/dL (1.6-2.6); Phosphorus 2.6 mg/dL (2.3-4.7)
[2020-03-07] MEDS ORDERED: Lisinopril/Hydrochlorothiazide 20 mg/12.5 mg Tablet PO PRN (17:18)
[2020-03-07] MEDS: Flecainide 50 MG TAB PO SCH (18:08)
[2020-03-07] MEDS: Apixaban 5 MG TAB PO SCH (20:33)
[2020-03-07] MEDS ORDERED: Atorvastatin Calcium 10 MG TAB PO SCH (21:00)
--- NOTE | 2020-03-08 00:40 | CON ---
DATE OF CONSULTATION: HISTORY OF PRESENT ILLNESS: Patient is a very pleasant 69-year-old woman, who presents for recurrent palpitations. Patient has a long history of atrial fibrillation. She has previously undergone several radiofrequency ablations for atrial fibrillation. She also has most recently had placement of electronic pacemaker. The patient has been maintained on flecainide. She was in her usual state of health when she started to develop recurrent palpitations. The patient did note missing one dose of her medication two days ago. The patient states her palpitations resolved prior to her coming to the emergency room. The patient denies having any further palpitations. She denies having any chest discomfort. PAST MEDICAL HISTORY: 1. Atrial fibrillation. 2. Hypertension. 3. Thyroid disorder. PAST SURGICAL HISTORY: Tubal ligation, tonsillectomy. MEDICATIONS: Included; 1. Synthroid 100 mcg daily. 2. Flecainide 100 b.i.d. 3. Lisinopril/hydrochlorothiazide 20/12.5 half a tablet twice a day. 4. Lipitor 40 at bedtime. 5. Eliquis 5 b.i.d. 6. Metoprolol 50 XL half a tablet p.o. b.i.d. 7. She is on Prozac 20 mg daily. ALLERGIES: SHE IS ALLERGIC TO LATEX AND ADHESIVES. SOCIAL HISTORY: Nonsmoker. PHYSICAL EXAMINATION: GENERAL: Obese woman, who is depressed. This is an anxious woman, in mild distress. VITAL SIGNS: Blood pressure 142/70. NECK: No jugular distention. LUNGS: Clear to auscultation. HEART: Regular rate and rhythm. Normal S1, S2. ABDOMEN: Distended. EXTREMITIES: Show no edema. VASCULAR: Radial pulses 2+. LABORATORY DATA: Her white blood cell count 12.5, hemoglobin 13.0, hematocrit 41.0, and platelets 292. Sodium is 142, potassium 4.1, chloride , bicarb 21, BUN 14, and creatinine 0.82. Troponin less than 0.01. Her EKG reveals an electronic ventricular pacemaker. IMPRESSION: 1. Atrial arrhythmias. 2. History of pacemaker. 3. Hypertension. 4. Dyslipidemia. 5. Morbid obesity. 6. Depression. This patient presents with recurrent atrial arrhythmias. We will interrogate the patient's pacemaker. The patient did miss one dose of flecainide. We will continue her on 100 mg twice daily. We will increase the dose of her metoprolol to 50 b.i.d. We will follow this patient with you through her hospitalization. We will ask EP to further evaluate. Job ID: [id number]
[2020-03-08 05:13] LABS: #Basophils 0.1 thou/uL (0.0-0.2); #Eosinphils 0.4 thou/uL (0.0-0.7); #Lymphocytes 2.5 thou/uL (1.20-3.40); #Monocytes 0.7 thou/uL (0.11-0.59); %Basophils 0.7 % (0.0-1.0); %Eosinophils 4.1 % (0.0-10.0); %Lymphocytes 26.2 % (21.0-51.0); %Monocytes 6.8 % (0.0-10.0); %Neutrophils 62.2 % (42.0-75.0); Hemoglobin 13.5 g/dL (12.0-16.0); Mean Corpuscular HGB CONC 32.8 g/dL (32.0-36.0); Mean Corpuscular Hemoglobin 28.4 pg (27.0-31.0); Mean Corpuscular Volume 86.7 fL (78.0-98.0); Mean Platelet Volume 8.5 fL (7.4-10.4); Platelet Count 274 thou/uL (130-400); RBC Distribution Width 13.5 % (11.5-14.5); Red Blood Cell (RBC) Count 4.76 mill/uL (4.20-5.40); White Blood Cell (WBC) Count 9.6 thou/uL (4.8-10.8)
[2020-03-08 05:38] LABS: Anion Gap 12 mmol/L (10-20); BUN (Urea Nitrogen) 15 mg/dL (9.8-20.1); Calc. Creatinine Clearance 106 mL/min (70-130); Calcium 9.2 mg/dL (7.8-10.44); Carbon Dioxide 26 mmol/L (23-31); Chloride 105 mmol/L (98-107); Estimated GFR-MDRD 64; Glucose 97 mg/dL (80-115); Potassium 3.5 mmol/L (3.5-5.1); Sodium 139 mmol/L (136-145)
[2020-03-08 05:47] LABS: Free T4 (Free Thyroxine) 1.12 ng/dL (0.70-1.48); Thyroid Stimulating Hormone 0.7188 uIU/mL (0.35-4.94)
[2020-03-08] MEDS ORDERED: Levothyroxine Sodium 100 MCG TAB PO SCH (06:00)
--- NOTE | 2020-03-08 06:25 | PDOC.FM ---
- Subjective Subjective: Patient comfortable this morning. She saw Dr Rios yesterday and said he told her he is going to adjust some of her meds and she is supposed to see Dr Bailey today. Denies CP, palpitations, SOB, N/V, WILSON, dizziness. - Objective Vital Signs & Weight: Vital Signs (12 hours) Temp Pulse Resp BP BP Pulse Ox 03/08/20 04:00 98.2 F 77 20 141/69 H 95 03/07/20 23:40 97.5 F L 63 20 139/83 95 03/07/20 20:37 74 03/07/20 19:39 98.2 F 60 18 156/91 H 95 Weight Weight 108.572 kg Result Diagrams: 03/08/20 04:40 03/08/20 04:40 Phys Exam - Physical Examination Constitutional: NAD HEENT: moist MMs, sclera anicteric Neck: supple, full ROM Respiratory: no wheezing, clear to auscultation bilateral Cardiovascular: RRR, no significant murmur Gastrointestinal: soft, non-tender, no distention Musculoskeletal: no edema, pulses present Neurological: non-focal, normal sensation Psychiatric: normal affect, A&O x 3 Skin: no rash, cap refill <2 seconds Dx/Plan - Plan Plan: This is a 69F w/ hx of a fib s/p ablation who presents with palpitations #A fib s/p ablation and pacemaker - Hx of AFib with 2 prior ablations, cardioversion, and pacemaker - currently NSR, converted en route to ED - consult Dr. Rios: plans to interrogate pacemaker, appreciate recs - consult Dr Bailey, appreciate recs - Continue home Metorprolol, Flecainide, Eliquis - continuous tele monitoring #HTN -continue home meds #HLD -continue home meds #hypothyroidism -TSH WNL -continue home meds Diet: HH DVT Ppx: home Eliquis IVF: N/A PCP: Dr. Melton Code: Full Dispo: Stable, tele obs, pending cardiology and EP recs. LOS<48hrs Addendum - Attending - Attending Attestation Date/Time: 03/08/20 1121 I personally evaluated the patient and discussed the management with Dr. Cook. I agree with the History, Examination, Assessment and Plan documented above with any addition or exceptions noted below.
[2020-03-08 07:36] VITALS: BP 131/79; TEMP 97.4
[2020-03-08] MEDS: Flecainide 50 MG TAB PO SCH (07:59)
[2020-03-08] MEDS: Apixaban 5 MG TAB PO SCH (07:59)
[2020-03-08] MEDS ORDERED: FLUoxetine HCl 10 MG CAP PO SCH (09:00)
[2020-03-08] MEDS ORDERED: Cyanocobalamin (Vitamin B-12) 1,000 MCG TAB PO SCH (09:00)
[2020-03-08] MEDS ORDERED: Lisinopril/Hydrochlorothiazide 20 mg/12.5 mg Tablet PO SCH (09:00)
[2020-03-08] MEDS ORDERED: Cholecalciferol 1,000 UNITS (25 MCG) TAB PO SCH (09:00)
--- NOTE | 2020-03-09 12:07 | CON ---
DATE OF CONSULTATION: 03/08/2020 HISTORY OF PRESENT ILLNESS: I am seeing Ms. Hardwick at our [facility] Telemetry Floor as an Electrophysiology risk control consultant. Her problems are; 1. Recurrent atrial arrhythmias. a. PVI in 2010. b. Reablation in December 2018. c. Typical atrial flutter status post VT ablation in December 2018. d. Atypical atrial flutter in July 2019 prompting initiation of flecainide. e. Nonrecurrent atrial flutter despite flecainide administration with occasional rapid rate. 2. History of bradycardia/tachy-colby syndrome. a. Status post dual-chamber pacemaker implantation on October 14, 2019 with a Med[employer]onic [place] XT DR device. 3. Preserved LVEF 55% to 60%, left atrial enlargement, mild valvular disease by echo on 03/02/2016. 4. Hypothyroidism. 5. Hypertension, hypercholesteremia, and elevated BMI. ALLERGIES: ADHESIVE TAPE AND LATEX. MEDICATIONS: At home included; 1. Synthroid 100 mcg a day. 2. Flecainide 100 mg twice a day. 3. Lisinopril/hydrochlorothiazide 20/12.5 mg twice daily. 4. Lipitor at bedtime. 5. Eliquis 5 mg twice a day. 6. Metoprolol-XL half tablet p.o. b.i.d. 7. Prozac 10 mg a day. SUBJECTIVE: Ms. Hardwick is here with symptoms of palpitation, which were up to 130 beats per minute according to heart rate monitor, the episode lasted about 30 minute. She went to the [place] ER and she was admitted to this facility. She does not pass out. Denies chest pains at this time. Palpitations noted though, no PND or orthopnea at this time. No fever, chills, or cough. Pacemaker site is well healed. REVIEW OF SYSTEMS: Rest of 12-point review of systems otherwise unremarkable. PAST MEDICAL HISTORY: As above. PAST SURGICAL HISTORY: Ablation, pacemaker placement, tonsillectomy, and tubal ligation. SOCIAL HISTORY: The patient denies smoking, EtOH, or drug abuse. Lives with and two kids. FAMILY HISTORY: Significant for coronary artery disease. OBJECTIVE DATA: VITAL SIGNS: The blood pressure is 131/79, heart rate 75, respiratory rate 20, and temperature 97.4 degrees Fahrenheit. GENERAL: Alert and oriented woman, in no apparent distress, weight is 239 pounds. NECK: Supple. Jugular veins not distended. CHEST: Coarse without crackles. HEART: Sounds are regular to rate and rhythm. No murmur or gallop. ABDOMEN: Benign. Bowel sounds positive. EXTREMITIES: Lower extremities without edema, clubbing, or cyanosis. Pulses are adequate. NEUROLOGIC: The patient is nonfocal. MUSCULOSKELETAL: Without joint swelling or deformity. SKIN: Without rash. The pacemaker site has healed adequately. DATABASE: EKG is reviewed from 03/07/2020 reveals sinus rhythm with ventricular pacing. Interrogation of the lithographic artist revealed possible 2:1 atrial flutter with ventricular pacing. The interrogation of the device is a [employer] [place] XT DR MRI compatible dual-chamber pacemaker, longevity 11 years or over, lead parameters are adequate, sensing 3.5 mV at 12.8 mV respectively. No atrial fibrillation burden noted. Atrial tachycardia episodes might be under counted, hence the treatment zone is at 160 beats per minute or above. No ventricular tachycardia episodes. The patient is 66.3% ventricularly paced and atrial paced at 9.5%. LABORATORY DATA: White cell count is 9.6, hemoglobin , and platelet count 274. Sodium 139, potassium 3.5, BUN is 15, and creatinine 0.88. ASSESSMENT AND PLAN: Ms. Hardwick is a pleasant 69-year-old woman with prior history of recurrent atrial arrhythmias, ablations in the past with redo PVI ablation/atypical atrial flutter ablation. Despite had late recurrence, maintained on flecainide, had some degree of tachy-colby syndrome and underwent a dual-chamber pacemaker in July. She also was kept on flecainide since and has very low atrial fibrillation burden, on the other hand can have unaccounted atrial flutter episodes. My plan is; 1. At this point, we will continue flecainide with increased beta janette therapy if tolerated. Continue oral anticoagulation. 2. Plan is to reprogram the device to detect and possibly terminate lower cycle length atrial flutter episodes. If that is unsuccessful, cardioversion could be considered. For now, I would hold off on increasing flecainide. Redo ablation is an alternative possibility. We will follow with you. Thank for the consult. Job ID: [id number] [facility]
--- NOTE | 2020-03-09 14:49 | DIS ---
DATE OF ADMISSION: 03/07/2020 DATE OF DISCHARGE: 03/08/2020 RESIDENT: Laura Cook MD ADMITTING ATTENDING: Marco Stephens MD DISCHARGE ATTENDING: Marco Stephens MD CONSULTS: Cardiology and Electrophysiology. PROCEDURE: Ultrasound right lower extremity venous Doppler, findings include deep venous thrombosis. PRIMARY DIAGNOSIS: Atrial fibrillation status post ablation and pacemaker. SECONDARY DIAGNOSES: 1. Hypertension. 2. Hyperlipidemia. 3. Hypothyroidism. DISCHARGE MEDICATIONS: 1. Eliquis 5 mg b.i.d. 2. Vitamin D3. 3. Vitamin B12. 4. Flecainide 100 mg b.i.d. 5. Prozac 10 mg daily. 6. Levothyroxine 100 mcg daily. 7. Lisinopril/hydrochlorothiazide 20/12.5 mg half tab b.i.d. 8. Metoprolol succinate 50 mg b.i.d. 9. Pravastatin 40 mg daily. HISTORY OF PRESENT ILLNESS: The patient is a 69-year-old female with a history of paroxysmal atrial fibrillation who presented to the ED with palpitations. She felt palpitations and noticed on her smart watch that her heart rate was in the 130s, so she called EMS. En route, she converted to normal sinus rhythm. She sees chancery clerk, Dr. Riso, outpatient and has been placed on flecainide with a recent increase due to a similar problem in October. She had a pacemaker placed in October as well for bradycardia. She had a history of ablation in 2011 and 2018 and a cardioversion. HOSPITAL STAY: While in hospital, she maintained normal sinus rhythm with a regular rate. Troponins were negative. All other lab was unremarkable. She was seen by her chancery clerk, Dr. Rios while in the hospital. Plan for her to stay on her home dose of flecainide 100 mg twice daily and metoprolol 50 twice daily. Brand Activation Manager, Dr. Bailey saw the patient and interrogated the pacemaker and reprogrammed. He stated that if that was not successful, cardioversion could be considered. The patient was stable for discharge and will follow up outpatient with Dr. Bailey and Dr. Rios. DISPOSITION: Stable. DISCHARGE INSTRUCTIONS: Location: Home. Diet: Heart healthy. Activity: As tolerated. Followup: Follow up with primary care doctor, Dr. Melton and Dr. Rios and Dr Bailey as scheduled. Job ID: [id number] [facility]
== END 2020-03-08 13:12 | disposition home or self-care (01) ==
LOC: 2SW 13:11
PROVIDERS: ADMIT Student in an Organized Health Care Education/Training Program; ATTEND Student in an Organized Health Care Education/Training Program
DX: I48.0 Paroxysmal atrial fibrillation (principal); I10 Essential (primary) hypertension; E03.9 Hypothyroidism, unspecified; E78.5 Hyperlipidemia, unspecified; F32.9 Major depressive disorder, single episode, unspecified; E66.01 Morbid (severe) obesity due to excess calories; Z68.38 Body mass index [BMI] 38.0-38.9, adult; Z79.01 Long term (current) use of anticoagulants; Z79.899 Other long term (current) drug therapy; Z91.040 Latex allergy status; Z91.048 Other nonmedicinal substance allergy status; Z95.0 Presence of cardiac pacemaker
CPT/HCPCS: 36415; 80048; 83735; 84100; 84439; 84443; 84480; 84481; 85025; G0378

== ENCOUNTER 2020-04-17 08:50 | Observation (INO) | payer MEDICARE, OTHER ==
[2020-04-17 09:16] LABS: #Basophils 0.1 thou/uL (0.0-0.2); #Eosinphils 0.2 thou/uL (0.0-0.7); #Lymphocytes 2.8 thou/uL (1.20-3.40); #Monocytes 0.8 thou/uL (0.11-0.59); #Neutrophils 9.3 thou/uL (1.40-6.50); %Basophils 0.8 % (0.0-1.0); %Eosinophils 1.6 % (0.0-10.0); %Monocytes 6.2 % (0.0-10.0); %Neutrophils 70.5 % (42.0-75.0); Hemoglobin 14.7 g/dL (12.0-16.0); Mean Corpuscular HGB CONC 31.7 g/dL (32.0-36.0); Mean Corpuscular Hemoglobin 27.8 pg (27.0-31.0); Mean Corpuscular Volume 87.5 fL (78.0-98.0); Mean Platelet Volume 8.8 fL (7.4-10.4); Platelet Count 314 thou/uL (130-400); RBC Distribution Width 13.5 % (11.5-14.5); Red Blood Cell (RBC) Count 5.29 mill/uL (4.20-5.40); White Blood Cell (WBC) Count 13.2 thou/uL (4.8-10.8)
[2020-04-17 09:38] LABS: ALT (SGPT) 11 U/L (8-55); AST (SGOT) 17 U/L (5-34); Albumin 4.2 g/dL (3.4-4.8); Alkaline Phosphatase 94 U/L (40-110); Anion Gap 15 mmol/L (10-20); BUN (Urea Nitrogen) 15 mg/dL (9.8-20.1); Bilirubin, Total 0.5 mg/dL (0.2-1.2); CK (CPK) 47 U/L (29-168); Calc. Creatinine Clearance 0 mL/min (70-130); Calcium 9.4 mg/dL (7.8-10.44); Carbon Dioxide 26 mmol/L (23-31); Chloride 105 mmol/L (98-107); Globulin 3.8 g/dL (2.4-3.5); Glucose 113 mg/dL (80-115); Lipase 16 U/L (8-78); Potassium 3.9 mmol/L (3.5-5.1); Sodium 142 mmol/L (136-145)
[2020-04-17 09:43] LABS: Bilirubin Negative (Negative); Blood, Urine Negative (Negative); Clarity Clear (Clear); Glucose, Urine (Dipstick) Normal (Negative); Ketone, Urine Negative (Negative); Leukocyte Negative Leu/uL (Negative); Nitrite Negative (Negative); Protein, Urine (Dipstick) Negative (Neg-Trace); Specific Gravity, Urine 1.013 (1.002-1.036); Urobilinogen Normal mg/dL (Less than 2); pH, Urine 7.5 (5.0-9.0)
[2020-04-17] MEDS ORDERED: Metoprolol Tartrate 5 MG/5 ML VIAL ONE ×2 (09:45→10:27)
--- NOTE | 2020-04-17 11:13 | PDOC.FPRHP ---
- History of Present Illness Chief Complaint: Heart flutter History of Present Illness: Patient is a 69 year old female with a history of paroxysmal afib s/p ablation x 2, cardioversion and pacemaker, HTN, HLD, and hypothyroidism who presents to ED with complaints of heart fluttering and chest heaviness since last pm. Patient intermittently experiences this feeling but became concerned when it did not resolve by morning. She reports headache but denies vision changes, chest pain, SOB, nausea, sweating, vomiting, edema, lightheadedness and dizziness. Reports taking her home medications daily as prescribed. Took morning flecainide 100mg and metoprolol 50mg on the way to the ED. Financial Systems Director is Dr. Rios. EP is Dr. Bailey. Last saw Dr. Bailey on 04/11. No change to medication at the time. Scheduled to see Dr. Rios on 04/18. Last hospitalized on 03/07-03/08 for paroxysmal afib. ED Course: In ED, EKG showed Afib with HR 126. Given metoprolol 5mg x 2 and diltiazem 10mg IV push. Started on diltiazem at 5mg/hr. HR at that time was 110s-120s. - Allergies/Adverse Reactions Allergies Allergy/AdvReac Type Severity Reaction Status Date / Time adhesive tape Allergy Verified 04/17/20 16:52 latex Allergy Verified 04/17/20 16:52 - Home Medications Medication Instructions Recorded Confirmed Type Lisinopril/Hydrochlorothiazide 0.5 tab PO BID 05/15/14 04/17/20 History [Prinizide] Cholecalciferol (Vitamin D3) 8,000 units PO DAILY 10/17/17 04/17/20 History [Wbn-N-Rihmvep] Cyanocobalamin (Vitamin B-12) 5,000 mcg PO DAILY 10/17/17 04/17/20 History [Vitamin B-12] Levothyroxine Sodium [Synthroid] 100 mcg PO DAILY 08/09/19 04/17/20 History Metoprolol Succinate 50 mg PO BID 10/11/19 04/17/20 History Apixaban [Eliquis] 5 mg PO BID #0 10/14/19 04/17/20 Rx Flecainide Acetate 100 mg PO BID #60 tablet 10/14/19 04/17/20 Rx Pravastatin Sodium 40 mg PO HS 02/16/20 04/17/20 History - History PMHx: HTN, hypothyroidism, Afib s/p pacemaker PSHx: Tubal ligation, tonsillectomy, Atrial ablation (03/24, 12/29), pacemaker (10/14/19) FHx: Noncontributory Social: Smoked a couple of cigarettes a day over 40 years ago. Does not drink or use recreational drugs. - Review of Systems General: denies: fever/chills, fatigue Eyes: denies: vision changes ENT: denies: nasal congestion, rhinorrhea Respiratory: denies: cough, shortness of breath Cardiovascular: reports: palpitation. denies: chest pain, edema Gastrointestinal: denies: nausea, vomiting, diarrhea, abdominal pain Genitourinary: denies: dysuria, polyuria Skin: denies: rashes, jaundice Musculoskeletal: denies: pain, stiffness Neurological: denies: numbness, syncope, weakness Psychological: denies: anxiety, depression - Vital signs BP: [168/82] HR: [121] RR: [14] Tmax: [98.8F] Pox: [96]% on [RA] Wt: [108.86kg] - Physical Exam Constitutional: NAD, awake, alert and oriented HEENT: normocephalic and atraumatic, conjunctiva clear, MMM Neck: FROM, trachea midline Chest: no-tender to palpation Heart: normal S1/S2, no murmurs/rubs/gallops, no edema -Heart: Irreguarly irregular Lungs: CTAB, no respiratory distress, good air movement Abdomen: soft, non-tender, bowel sounds present Musculoskeletal: ROM grossly normal Neurological: no focal deficit Skin: no rash/lesions, no jaundice Heme/Lymphatic: no unusual bruising or bleeding Psychiatric: normal mood and affect FMR H&P: Results - Labs Result Diagrams: 04/17/20 09:07 04/17/20 09:07 Lab results: WBC 13.2 thou/uL (4.8-10.8) H 04/17/20 09:07 Hgb 14.7 g/dL (12.0-16.0) 04/17/20 09:07 Hct 46.3 % (36.0-47.0) 04/17/20 09:07 MCV 87.5 fL (78.0-98.0) 04/17/20 09:07 Plt Count 314 thou/uL (130-400) 04/17/20 09:07 Neutrophils % 70.5 % (42.0-75.0) 04/17/20 09:07 Sodium 142 mmol/L (136-145) 04/17/20 09:07 Potassium 3.9 mmol/L (3.5-5.1) 04/17/20 09:07 Chloride 105 mmol/L (98-107) 04/17/20 09:07 Carbon Dioxide 26 mmol/L (23-31) 04/17/20 09:07 BUN 15 mg/dL (9.8-20.1) 04/17/20 09:07 Creatinine 0.96 mg/dL (0.6-1.1) 04/17/20 09:07 Glucose 113 mg/dL (80-115) 04/17/20 09:07 Calcium 9.4 mg/dL (7.8-10.44) 04/17/20 09:07 Total Bilirubin 0.5 mg/dL (0.2-1.2) 04/17/20 09:07 AST 17 U/L (5-34) 04/17/20 09:07 ALT 11 U/L (8-55) 04/17/20 09:07 Alkaline Phosphatase 94 U/L (40-110) 04/17/20 09:07 Creatine Kinase 47 U/L (29-168) 04/17/20 09:07 Serum Total Protein 8.0 g/dL (6.0-8.3) 04/17/20 09:07 Albumin 4.2 g/dL (3.4-4.8) 04/17/20 09:07 Lipase 16 U/L (8-78) 04/17/20 09:07 Urine Ketones Negative mg/dL (Negative) 04/17/20 09:22 Urine Blood Negative (Negative) 04/17/20 09:22 Urine Nitrite Negative (Negative) 04/17/20 09:22 Ur Leukocyte Esterase Negative Jesus/uL (Negative) 04/17/20 09:22 - EKG Interpretation EKG: Afib, HR 126 FMR H&P: A/P - Plan Paroxysmal atrial fibrillation with RVR Hx of afib for past 19 years, s/p ablation x2 and pacemaker in 10/2019. EKG showed Afib with HR 126. HR 110-120s in ED s/p metoprolol 5mg x 2. Financial Systems Director: Blanca. EP: Lynn -Admit to tele obs -Continue home flecainide 100mg BID, metoprolol 50mg BID -Start diltiazem at 5mg/hr and titrate as indicated -Consult Dr. Rios, cardiology. F/u recs HTN BP elevated in ED, likely 2/2 Afib with RVR. Trop 0.017. CXR negative. -Continue home meds -Monitor BP Hypothyroidism Compliant with levothyroxine. TSH wnl. -Continue home levothyroxine Hyperlipidemia Controlled per lipid panel 12/2019. -Continue home statin PCP: Geronimo Code: FULL DVT ppx: home eliquis Dispo: Admit to tele obs, expected LOS < 48 hour s FMR H&P: Upper Level - Pertinent history 69 yo F with history of A-fib on eliquis who felt palpitations last night and this morning. She felt chest heaviness, which did not radiate. She felt "horrible." Cannot specify symptoms. Has appt w/ Dr. Rios, her dip filler, tomorrow. She checked her BP and had elevated BP. She took her metoprolol and fleicanide as prescribed. Denies missing any doses. Was recently hospitalized and discharged in late February 2020 for similar symptoms. - Pertinent findings VS: BP 169/131, HR 120, 98% O2 on room air, RR 17 PEx: Gen: NAD, well appearing Resp: nonlabored, CTAB CV: tachycardic, irregularly irregular Abd: nondistended Extremities: trace edema b/l Psych: normal mood, affect. Labs: CBC, BMP, TSH obtained by the ER reviewed. TSH wnl. CXR wnl. EKG: patient is electronically paced. Tachycardic. - Plan Date/Time: 04/17/20 1113 69 yo F admitted for : Recurrent A-fib w/ RVR - patient recently hospitalized w/ reprogrammed pacemaker - Per Dr. Bailey note last time, if recurrent a-fib, they would consider another ablation or cardioversion. As such, consult to Cardiology and to EP recommended. - Continue diltiazem gtt at 5. ER has yet to give cardizem push and start the drip. - Consider repeat ECHO as it does not appear pt has had one since 2016. Will communicate with Cardiology so they can coordinate if they desire. - add magnesium to labs - continuous telemetry monitoring Hypothyroidism - taking Levothyroxine 100mcg - TSH wnl - consider adding T3/T4 if refractory a-fib HTN HLD Anxiety/depression - continue home meds. Code: FULL Diet: HH GI ppx: none VTE ppx: continue home anticoagulant eliquis Dispo: tele, obs. I, Kyara Montalvo, have evaluated this patient and agree with findings/plan as outlined by product management internship resident. Pertinent changes/additions are listed above. Addendum - Attending - Attending Attestation Date/Time: 04/17/201931 I personally evaluated the patient and discussed the management with Dr. JOVITA phan/Selvin. H&P repeated by me. I agree with the History, Examination, Assessment and Plan documented above with any addition or exceptions noted below. A fib with RVR- persistent despite IV metoprolol and diapezam gtt. To tele for continued treatment. Cards consulted as patient sees Dr. Rios and Dr. Bailey. Appreciate their input. HTN- continue home meds and monitor.
[2020-04-17] MEDS ORDERED: Diltiazem 125 MG/25 ML ONE (11:38)
[2020-04-17] MEDS ORDERED: Acetaminophen 325 MG TAB PO PRN (11:39)
[2020-04-17] MEDS ORDERED: Diltiazem 125 MG in Sodium Chloride 0.9% 100 ML IVPB SCH ×2 (12:00→20:00)
--- NOTE | 2020-04-17 12:34 | RAD ---
PORTABLE CHEST: HISTORY: Tachycardia. Hypertension. COMPARISON: 03/07/2020. FINDINGS: Lung hinojosa appear clear. Heart size upper normal and stable. Vasculature upper normal and stable. Pacemaker leads unchanged. No effusion. IMPRESSION: No acute process. POS: AGW
[2020-04-17] MEDS ORDERED: Metoprolol Tartrate 5 MG/5 ML VIAL IVP PRN (16:19)
[2020-04-17] MEDS ORDERED: Metoprolol Tartrate 5 MG/5 ML VIAL IVP SCH (16:30)
[2020-04-17 17:01] VITALS: BMI 39.2
[2020-04-17] MEDS ORDERED: Non-Formulary Item 1 EACH (Flecainide Acetate [Flecainide Acetate] 100 MG Tablet) PO SCH (21:00)
[2020-04-17] MEDS: Apixaban 5 MG TAB PO SCH (21:00)
[2020-04-17] MEDS ORDERED: Pravastatin Sodium 40 MG TAB PO SCH (21:00)
[2020-04-17] MEDS ORDERED: LISINOPRIL PO SCH (21:00)
[2020-04-17] MEDS ORDERED: HYDROCHLOROTHIAZIDE PO SCH (21:00)
[2020-04-17] MEDS ORDERED: Atorvastatin Calcium 10 MG TAB PO SCH (21:00)
[2020-04-17] MEDS: Flecainide 50 MG TAB PO SCH (21:00)
[2020-04-17] MEDS ORDERED: [UNRECOGNIZED DRUG - OTHER] PO SCH (21:00)
[2020-04-17] MEDS: Lisinopril/Hydrochlorothiazide 20 mg/12.5 mg Tablet PO SCH (21:06)
[2020-04-17 22:35] LABS: SARS-CoV-2 MS2 Positive; SARS-CoV-2 N Gene Negative; SARS-CoV-2 S Gene Negative; SARS-CoV-2 by NAA Not Detected (NotDetected); SARS-CoV-2 orf1ab Negative
--- NOTE | 2020-04-17 23:01 | CON ---
DATE OF CONSULTATION: HISTORY OF PRESENT ILLNESS: The patient is a 69-year-old woman with a long history of atrial fibrillation, who presents with recurrent palpitations and weakness. The patient has a long history of atrial fibrillation,and previously underwent ablation approximately 5 years ago. She has been admitted on multiple occasions with atrial fibrillation. She has subsequent placement of electronic pacemaker. The patient was in her usual state of health when she started having increasing palpitations. The patient denied having any chest discomfort. PAST MEDICAL HISTORY: 1. Atrial fibrillation. 2. Hypertension. 3. Thyroid disorder. PAST SURGICAL HISTORY: Tubal ligation, and tonsillectomy. MEDICATIONS: Include 1. Eliquis 5 b.i.d. 2. Pravastatin 40 daily. 3. Synthroid 100 mcg daily. 4. Lisinopril half a tablet p.o. b.i.d. 5. Metoprolol 50 b.i.d. 6. Flecainide 100 mg p.o. b.i.d. ALLERGIES: 1. ADHESIVE TAPE. 2. LASIX. SOCIAL HISTORY: Nonsmoker. REVIEW OF SYSTEMS: Ten-point system otherwise unremarkable. PHYSICAL EXAMINATION: GENERAL: Obese woman, in no acute distress. VITAL SIGNS: Blood pressure 125/86. NECK: No jugular venous distention. LUNGS: Clear to auscultation. HEART: Regular rate and rhythm. Normal S1, S2. ABDOMEN: Distended. EXTREMITIES: Showed no edema. LABORATORY DATA: Sodium 142, potassium 3.9, chloride 105, bicarbonate 26, BUN 15, creatinine 0.96, glucose 113. White blood cell count 13.2, hemoglobin 14.7, hematocrit 46.5, and platelets were 314. IMAGING: EKG electronic ventricular pacemaker with a rapid ventricular response. IMPRESSION: 1. Probable pacemaker-mediated tachycardia. 2. History of atrial fibrillation and ablation. 3. Hypertension. 4. Thyroid disorder. 5. Obesity. This patient presents with rapid palpitations. It appears to be a pacemaker- mediated tachycardia. We will ask the [employer] hardware supplies sales representative to interrogate and adjust the device. We will follow this patient with you through her hospitalization. Job ID: [id number] [facility]
[2020-04-18 05:33] LABS: Anion Gap 13 mmol/L (10-20); BUN (Urea Nitrogen) 19 mg/dL (9.8-20.1); Calc. Creatinine Clearance 107 mL/min (70-130); Calcium 8.9 mg/dL (7.8-10.44); Carbon Dioxide 24 mmol/L (23-31); Chloride 107 mmol/L (98-107); Glucose 99 mg/dL (80-115); Potassium 3.4 mmol/L (3.5-5.1); Sodium 141 mmol/L (136-145)
--- NOTE | 2020-04-18 06:18 | PDOC.FM ---
- Subjective Subjective: Patient is resting comfortably in bed. No concerns. Denies chest pain, shrotness of breath, abdominal pain, N/V. - Objective MAR Reviewed: Yes Vital Signs & Weight: Vital Signs (12 hours) Temp Pulse Resp BP Pulse Ox 04/18/20 04:00 97.8 F 63 16 96/55 L 95 04/17/20 21:06 129 H 04/17/20 19:40 98.3 F 60 16 114/66 96 Weight Weight 110.169 kg I&O: 04/16/20 04/17/20 04/18/20 06:59 06:59 06:59 Intake Total 600 Output Total 550 Balance 50 Result Diagrams: 04/17/20 09:07 04/18/20 03:57 Phys Exam - Physical Examination Constitutional: NAD HEENT: PERRLA, moist MMs Respiratory: no wheezing, clear to auscultation bilateral Cardiovascular: RRR, no significant murmur Gastrointestinal: soft, non-tender, positive bowel sounds Musculoskeletal: no edema Neurological: moves all 4 limbs Psychiatric: normal affect, A&O x 3 Skin: no rash Dx/Plan - Plan Plan: Paroxysmal atrial fibrillation with RVR Hx of afib for past 19 years, s/p ablation x2 and pacemaker in 10/2019. EKG showed Afib with HR 126. HR 110-120s in ED s/p metoprolol 5mg x 2. Judicial Reporter: Blanca. EP: Lynn Per Dr. Bailey note last time, if recurrent a-fib, they would consider another ablation or cardioversion. As such, consult to Cardiology and to EP recommended. -Continue home flecainide 100mg BID, metoprolol 50mg BID -Consult Dr. Rios, cardiology. F/u recs - 04/17, recs adjusting pacemaker with [employer], now atrial paced v sensed in 60s - dilt gtt stopped this am HTN BP elevated in ED, likely 2/2 Afib with RVR. Trop 0.017. CXR negative. -Continue home meds -Monitor BP Hypothyroidism Compliant with levothyroxine. TSH wnl. -Continue home levothyroxine Hyperlipidemia Controlled per lipid panel 12/2019. -Continue home statin PCP: Geronimo Code: FULL DVT ppx: home eliquis Dispo: possibly d/c today, pending cards/EP recs Addendum - Attending - Attending Attestation Date/Time: 04/18/20 1110 I personally evaluated the patient and discussed the management with Dr. Recio. I agree with the History, Examination, Assessment and Plan documented above with any addition or exceptions noted below. Patient feels well. Back in NSR after PM changes. Cardiology and EP on board, awaiting further recs before hopefully a discharge today or tomorrow.
[2020-04-18] MEDS: Flecainide 50 MG TAB PO SCH (08:39)
[2020-04-18] MEDS: Lisinopril/Hydrochlorothiazide 20 mg/12.5 mg Tablet PO SCH (08:39)
[2020-04-18] MEDS: Apixaban 5 MG TAB PO SCH (08:40)
[2020-04-18] MEDS ORDERED: Cyanocobalamin (Vitamin B-12) 1,000 MCG TAB PO SCH (09:00)
[2020-04-18] MEDS ORDERED: FLU VACC QS2020-21(65YR UP)/PF 240 MCG/0.7 ML SYRINGE IM ONE (09:00)
[2020-04-18] MEDS ORDERED: [UNRECOGNIZED DRUG - OTHER] PO SCH (09:00)
[2020-04-18] MEDS ORDERED: Levothyroxine Sodium 100 MCG TAB PO SCH (09:00)
[2020-04-18] MEDS ORDERED: CHOLECALCIFEROL PO SCH (09:00)
[2020-04-18] MEDS ORDERED: FLUoxetine HCl 10 MG CAP PO SCH (09:00)
[2020-04-18] MEDS ORDERED: Cholecalciferol 1,000 UNITS (25 MCG) TAB PO SCH (09:00)
[2020-04-18] MEDS ORDERED: CYANOCOBALAMIN 5000 MCG PO SCH (09:00)
[2020-04-18 12:30] VITALS: BP 151/88; TEMP 97.8
[2020-04-18] MEDS ORDERED: Potassium Chloride 20 MEQ TAB PO SCH (12:30)
--- NOTE | 2020-04-18 19:45 | CON ---
DATE OF CONSULTATION: 04/18/2020 REASON FOR CONSULTATION: Atrial arrhythmia management/pacemaker check and management. HISTORY OF PRESENT ILLNESS: I am seeing Ms. Hardwick as an electrophysiology consultation while hospitalized at [facility] for elevated heart rate, tachycardia, and palpitations. Her problem list is as follows. 1. Recurrent atrial arrhythmias: a. PVI in 2010 with repeat ablation in December 2018. b. Typical atrial flutter, status post CTI ablation. c. In October 2019, atypical atrial flutter with slow ventricular rates. 2. Tachy-colby syndrome: a. Status post dual-chamber pacemaker implant on 10/14/2019. 3. CHADS-VASc score of 3 for age, gender, and hypertension. 4. Hypothyroidism, on replacement. SUBJECTIVE: Ms. Hardwick is known to our practice for history of frequent atrial arrhythmias with prior ablations. She has required flecainide for ongoing antiarrhythmic support. She has a pacemaker in place to address previous tachy-colby issues. She began to experience tachycardia at home with palpitations and sought medical evaluation by calling 911. When she came in, she was seen to be tachycardic in the 120 to 130 beats per minute range. Her pacemaker was checked and there were some concerns for pacemaker mediated tachycardia. EP consultation has been requested for management of her atrial arrhythmias and also for pacemaker management. REVIEW OF SYSTEMS: A 12-point review of systems currently negative and as per HPI. Her heart rhythm has since normalized and she is no longer having heart racing or palpitations. ALLERGIES: ADHESIVE TAPE AND LASIX. HOME MEDICATIONS: Include; 1. Eliquis 5 mg b.i.d. 2. Pravastatin 40 mg daily. 3. Synthroid 100 mcg daily. 4. Lisinopril half tablet p.o. b.i.d. 5. Metoprolol succinate 50 mg b.i.d. 6. Flecainide 100 mg p.o. b.i.d. SOCIAL HISTORY: Nonsmoker. She is . No illicit drug use or alcohol consumption. FAMILY HISTORY: Noncontributory. PAST MEDICAL HISTORY: As per problem list. OBJECTIVE: VITAL SIGNS: Temperature 97.8 degrees Fahrenheit, pulse 66, blood pressure 151/88, respirations 18, and oxygen is 97% on room air. GENERAL: The patient is alert and oriented. Speech is clear. Affect is appropriate. No apparent distress. Resting comfortably in bed at the time of the exam. She is overweight. BMI is nearly 40. Height 5 feet 6 inches, weight 242 pounds. HEENT: She is normocephalic and atraumatic. Her sclerae are anicteric. EOMs are intact. NECK: Supple without jugular venous distention. There is no lymphadenopathy, and trachea is midline. HEART: Rate is with a crisp S1 and S2. There is a left-sided precordial pacemaker under the skin. Site is without reaction. There is a thin scar, but has healed nicely. LUNGS: Clear to auscultation bilaterally without wheezes, crackles, or rhonchi. Respirations are even and unlabored. ABDOMEN: Obese, soft, nontender without palpable masses. EXTREMITIES: Warm and dry to touch. Well perfused without clubbing, cyanosis, or edema. NEUROLOGIC: Grossly intact and nonfocal. LABORATORY DATA: Hematology; WBC 13.2, hemoglobin stable, platelet count 314. Chemistry; potassium 3.4, creatinine 0.89, magnesium 2.3. TSH 1.4. Troponin is negative. Liver enzymes within normal ranges. Telemetry and EKG show sinus rhythm with a right bundle-branch block, initially she was in atrial tachycardia/atrial flutter with ventricular rates of approximately 120 to 130 beats per minute. Device interrogation: The patient has a [employer]onic Radisson XT DR dual-chamber pacemaker, implanted on 10/14/2019. Overall, device is functioning normally. Current mode is MVP. It shows a recent occurrence of atrial arrhythmia, responsive to antitachycardia pacing for termination. Her current atrial tachycardia/flutter is below the detection rate, and the device was reprogrammed, lowering the detection rate to 133 beats per minute, which is the lowest option. No additional programming changes were needed. RV pacing is approximately 10%. I do not think this was pacemaker mediated tachycardia. Telemetry initially showed slow atrial tachycardia with Ventricular pacing tracking. Subsequent conversion to sinus rhythm. While on high-dose diltiazem drip, she was A-paced V-paced at a rate of 60 beats per minute, likely with worsening AV conduction on high-dose diltiazem. Since the drip has been stopped, no further ventricular pacing has been seen and the device is also currently programmed in MVP to minimize ventricular pacing. IMPRESSION: 1. Atypical atrial flutter/atrial tachycardia, responsive to ATP. 2. Anticoagulation with Eliquis. 3. Hypertension. 4. Thyroid disorder. 5. Obesity. 6. Right bundle-branch block. PLAN AND RECOMMENDATIONS: Ms. Hardwick is a very pleasant 69-year-old woman with a history of frequent atrial arrhythmias with prior ablations, requiring flecainide for suppression, who is seen to have breakthrough tachycardic episode. She was transiently on a diltiazem drip, which converted her to sinus rhythm, but did result in AV pacing, likely from prolonged conduction through the AV node on the higher dose of this drip. Since stopping the drip, she is back in demand atrial pacing with little to no ventricular pacing. Historically, her atrial arrhythmias have been fairly responsive to antitachycardia pacing algorithms, and therefore, her lower detection limit was decreased to 133 beats per minute, hopefully to catch more of these recurrent episodes as they occur. Also max tracking was decreased tpo 110 BPM. Long-term, she may require repeat ablation, given the breakthrough recurrence despite ongoing antiarrhythmic therapy on flecainide. My recommendation would be for the addition of low-dose diltiazem 120 mg daily versus optimizing her preexisting metoprolol. This was discussed with Dr. Rios and diltiazem will be added with instructions to hold her lisinopril should her systolic pressure drops below 120 mmHg. We will see her back in clinic in 6 weeks. From an EP perspective, she is okay to discharge at any time and we will arrange for outpatient followup. Thank you for allowing us to participate in the care of this patient. Job ID: [id number] [facility]PITALWalter
[2020-04-19] MEDS ORDERED: Lisinopril/Hydrochlorothiazide 20 mg/12.5 mg Tablet PO SCH (09:00)
== END 2020-04-18 16:27 | disposition home or self-care (01) ==
LOC: ERS 08:50 → ERHOLD 11:24 → 2NO 16:48
PROVIDERS: ADMIT Family Medicine; ATTEND Family Medicine
DX: I48.0 Paroxysmal atrial fibrillation (principal); I48.4 Atypical atrial flutter; I45.10 Unspecified right bundle-branch block; I49.5 Sick sinus syndrome; I10 Essential (primary) hypertension; E03.9 Hypothyroidism, unspecified; E78.5 Hyperlipidemia, unspecified; F41.9 Anxiety disorder, unspecified; F32.9 Major depressive disorder, single episode, unspecified; E66.9 Obesity, unspecified; Z68.39 Body mass index [BMI] 39.0-39.9, adult; Z87.891 Personal history of nicotine dependence; Z79.01 Long term (current) use of anticoagulants; Z79.899 Other long term (current) drug therapy; Z91.040 Latex allergy status; Z91.048 Other nonmedicinal substance allergy status; Z95.0 Presence of cardiac pacemaker; Z20.828 Contact with and (suspected) exposure to other viral communicable diseases
CPT/HCPCS: 71045; 80048; 81003; 82550; 83690; 83735; 84484; 87086; 93005; 94760; 96365; 96366; 96375; 96376; 99285; G0378 ×3; U0003; 36415; 80053; 84443; 85025; 87635; J3490

== ENCOUNTER 2020-04-27 06:43 | Outpatient (CLI) | payer MEDICARE, OTHER ==
[2020-04-27 15:15] LABS: Hemoglobin 13.2 g/dL (12.0-16.0); Mean Corpuscular HGB CONC 31.1 G/DL (32.0-36.0); Mean Corpuscular Hemoglobin 27.2 PG (27.0-33.0); Mean Corpuscular Volume 87.2 fl (80.0-100.0); Mean Platelet Volume 10.9 fl (7.4-10.4); Platelet Count 312 10x3/uL (130-400); RBC Distribution Width 13.9 % (11.5-14.5); Red Blood Cell (RBC) Count 4.86 10x6/uL (3.90-5.20); White Blood Cell (WBC) Count 10.3 10x3/uL (4.5-11.0)
[2020-04-27 15:22] LABS: Anion Gap 15 mmol/L (10-20); BUN (Urea Nitrogen) 15 mg/dL (9.8-20.1); Calc. Creatinine Clearance 0 mL/min (70-130); Calcium 9.3 mg/dL (7.8-10.44); Carbon Dioxide 25 mmol/L (23-31); Chloride 105 mmol/L (98-107); Glucose 102 mg/dL (80-115); Potassium 4.2 mmol/L (3.5-5.1); Sodium 141 mmol/L (136-145)
[2020-04-27 15:30] LABS: INR-International Normal Ratio 1.1; PTT 28.6 sec (22.0-33.0); Prothrombin Time 11.2 sec (9.5-12.1)
[2020-04-28 02:23] LABS: SARS-CoV-2 MS2 Positive; SARS-CoV-2 N Gene Negative; SARS-CoV-2 S Gene Negative; SARS-CoV-2 by NAA Not Detected (NotDetected); SARS-CoV-2 orf1ab Negative
== END 2020-04-27 06:44 | disposition home or self-care (01) ==
LOC: LABBT 06:43
PROVIDERS: ATTEND Specialist
DX: Z01.818 Encounter for other preprocedural examination (principal); Z20.828 Contact with and (suspected) exposure to other viral communicable diseases; I47.1 Supraventricular tachycardia
CPT/HCPCS: 80048; 85027; 85610; 85730; 93005; U0003; 87635; 93010

== ENCOUNTER 2020-05-02 05:52 | Observation (INO) | payer MEDICARE, OTHER ==
[2020-05-02] MEDS ORDERED: Midazolam HCl 2 mg/2 ml Vial ONE (06:51)
[2020-05-02] MEDS ORDERED: Fentanyl 100 MCG/2 ML VIAL ONE (06:51)
[2020-05-02] MEDS ORDERED: Heparin 10,000 UNITS/ 10 ML VIAL ONE ×2 (06:54→09:01)
[2020-05-02] MEDS ORDERED: Rocuronium Bromide 10 MG/ML (10ML VIAL) ONE (09:28)
[2020-05-02] MEDS ORDERED: PROPOFOL 200 MG/20 ML VIAL ONE (09:28)
[2020-05-02] MEDS ORDERED: Ondansetron PF 4 MG/2 ML Vial ONE (09:28)
[2020-05-02] MEDS ORDERED: Lidocaine 1% PF 5 ML VIAL ONE (09:28)
[2020-05-02] MEDS ORDERED: Glycopyrrolate 0.2 MG/ML 5 ML SYRINGE ONE (09:28)
[2020-05-02] MEDS ORDERED: Dexamethasone 20 MG/5 ML VIAL ONE (09:28)
[2020-05-02] MEDS ORDERED: Isoproterenol 0.2 MG/1 ML AMP ONE (09:47)
[2020-05-02] MEDS ORDERED: Protamine Sulfate 50 MG/5 ML VIAL ONE (10:23)
[2020-05-02] MEDS ORDERED: Acetaminophen/Codeine 30-300mg Tablet PO PRN (14:46)
[2020-05-02] MEDS ORDERED: Ketorolac Tromethamine 30 MG/ML VIAL IVP PRN (14:47)
[2020-05-02] MEDS ORDERED: Calcium Carbonate 500 MG ChewTAB PO PRN (14:49)
[2020-05-02] MEDS ORDERED: Lisinopril/Hydrochlorothiazide 20 mg/12.5 mg Tablet PO PRN (14:51)
--- NOTE | 2020-05-02 15:06 | OP ---
DATE OF PROCEDURE: 05/02/2020 PREOPERATIVE DIAGNOSIS: 1. Atrial fibrillation. 2. Atypical atrial flutter. POSTOPERATIVE DIAGNOSES: 1. Atrial fibrillation. 2. Atypical atrial flutter. PROCEDURES PERFORMED: Radiofrequency ablation for atrial fibrillation and atypical atrial flutter, left atrial pacing and recording, drug infusion, electroanatomical mapping. DESCRIPTION OF PROCEDURE: The patient came to the EP lab in the postabsorptive state. Informed consent was obtained. A time-out was called. The patient was sedated by member of the anesthesia staff. Once the patient was adequately sedated, the right and left femoral regions as well as the jugular region on the right were prepped and draped in the usual sterile fashion. Using a modified Seldinger technique and with ultrasound-guided access, access was obtained x2 in the right femoral vein, x1 in the left femoral vein, x1 in the internal jugular vein on the right. Two 8-Serbian sheaths were placed in the right femoral vein. A 10-Serbian sheath was placed in the left femoral vein and 7-Serbian sheath was placed in the right internal jugular vein. A Duo-Deca catheter was advanced from the right internal jugular vein with the distal 10 poles placed into the coronary sinus with atrial pacing and recording. An intracardiac ultrasound catheter was advanced in the left femoral vein for intraprocedural monitoring and guidance. Heparin bolus was given and the two 8-Serbian sheaths were exchanged for transseptal sheath and transseptal puncture was performed using direct visualization with intracardiac ultrasound. A 10-pole 20-mm circular mapping catheter was placed in the left atrium and a 3D electroanatomical map was created using the CARTO system. We created a voltage of the left atrium and ablation catheter, which was an STSF F-curve was also advanced. The patient arrived in normal sinus rhythm and a voltage map demonstrated that the pulmonary veins were all isolated. Attempts at initiating atrial flutter failed initially. The posterior wall and roof appeared to recover from prior ablation and therefore applications of radiofrequency in those regions was delivered. The Lasso was placed in the left atrial appendage and ablation to delay the left atrial appendage was performed. After this burst pacing again was performed and at this time, we could easily induce atrial flutter at a cycle length of approximately 350 milliseconds. This was mapped and area critical to the flutter was found on the ridge along the left superior pulmonary vein and the left atrial appendage. Ablation in this area terminated the atrial flutter immediately. No further atrial flutters could be induced and ice paternal bolus was given. After this, catheter was removed, sheaths were removed and hemostasis was obtained by manual pressure in the right internal jugular and by placement of Vascade sheaths in the femoral region. A total of 24 minutes of radiofrequency was delivered and HV interval was 45 milliseconds. The patient tolerated the procedure well and was therefore discharged from the EP lab in stable condition. CONCLUSIONS: Successful ablation for atypical atrial flutter and recurrence of atrial fibrillation. RECOMMENDATIONS: The patient will follow up with EP in approximately 6 weeks or so. She will be watched overnight. COMPLICATIONS: None acute. Job ID: [id number]
[2020-05-02] MEDS ORDERED: Acetaminophen 325 MG TAB ONE (16:15)
[2020-05-02] MEDS: Acetaminophen 325 MG TAB PO PRN ×2 (16:17→21:53)
[2020-05-02 17:16] VITALS: BMI 41.8
[2020-05-02] MEDS: Sucralfate 1 GM TAB PO SCH ×2 (17:59→20:36)
--- NOTE | 2020-05-02 18:47 | EKG ---
Test Reason : POST ABLATION Blood Pressure : / mmHG Vent. Rate : 067 BPM Atrial Rate : 067 BPM P-R Int : 208 ms QRS Dur : 088 ms QT Int : 426 ms P-R-T Axes : 024 -07 -23 degrees QTc Int : 450 ms Normal sinus rhythm Nonspecific T wave abnormality Abnormal ECG When compared with ECG of 27-APR-2020 14:48, (Unconfirmed) Sinus rhythm has replaced Electronic atrial pacemaker Nonspecific T wave abnormality now evident in Inferior leads Confirmed by RAO DAVIS, . SFatuma (4) on 05/02/2020 6:47:27 PM Referred By: ANGELICA Confirmed By:DR. Clarence YEH MD
[2020-05-02] MEDS: Apixaban 5 MG TAB PO SCH (20:35)
[2020-05-02] MEDS: Flecainide 50 MG TAB PO SCH (20:36)
[2020-05-02] MEDS ORDERED: Atorvastatin Calcium 10 MG TAB PO SCH (21:00)
[2020-05-02] MEDS: Cepastat Lozenges 1 LOZ PO PRN (22:32)
[2020-05-03] MEDS: Cepastat Lozenges 1 LOZ PO PRN ×3 (05:30→12:26)
[2020-05-03] MEDS ORDERED: Levothyroxine Sodium 100 MCG TAB PO SCH (06:00)
[2020-05-03] MEDS ORDERED: Potassium Chloride 20 MEQ TAB PO SCH (08:00)
[2020-05-03] MEDS: Flecainide 50 MG TAB PO SCH (08:01)
[2020-05-03] MEDS: Sucralfate 1 GM TAB PO SCH ×2 (08:03→12:26)
[2020-05-03] MEDS: Apixaban 5 MG TAB PO SCH (08:03)
[2020-05-03 08:21] VITALS: TEMP 97.4
[2020-05-03] MEDS ORDERED: Cyanocobalamin (Vitamin B-12) 1,000 MCG TAB PO SCH (09:00)
[2020-05-03] MEDS ORDERED: Cholecalciferol 1,000 UNITS (25 MCG) TAB PO SCH (09:00)
[2020-05-03] MEDS ORDERED: Lisinopril/Hydrochlorothiazide 20 mg/12.5 mg Tablet PO SCH (09:00)
[2020-05-03] MEDS ORDERED: Furosemide 40 MG/4 ML VIAL SLOW IVP SCH (09:00)
[2020-05-03] MEDS ORDERED: FLU VACC QS2020-21(6MOS UP)/PF 60 MCG/0.5 ML SYRINGE IM ONE (09:00)
[2020-05-03 12:07] VITALS: BP 121/60
--- NOTE | 2020-05-03 12:08 | DIS ---
DATE OF ADMISSION: 05/02/2020 DATE OF DISCHARGE: 05/03/2020 23-hour observation. DIAGNOSIS: Atypical atrial flutter/atrial fibrillation. PROCEDURE PERFORMED: Radiofrequency ablation for atrial fibrillation and atypical atrial flutter, left atrial pacing, drug infusion, electroanatomical mapping. Re-isolation of the posterior wall and roof. Delay of the left atrial appendage was performed. Ablation of an atypical atrial flutter cycle length 350 milliseconds, mapped along the left superior pulmonary vein and left atrial appendage, terminated with ablation and noninducible after. Total ablation time 24 minutes. HISTORY OF PRESENT ILLNESS: Ms. Hardwick is a 69-year-old woman with a history of recurrent atrial arrhythmias with two prior left atrial ablations. She was recently seen to have recurrent atypical atrial flutter when flecainide was stopped. Repeat EP study and ablation were performed as detailed above. She has maintained sinus rhythm overnight with no complications and is eager to discharge home. SUBJECTIVE: She denies any heart racing, palpitations, chest pain, pressure, syncope, near syncope, stroke, stroke-like symptoms, hematoma or bleeding complications to the access sites, difficulty ambulating, or cardiac concerns. She has no shortness of breath. OBJECTIVE: Telemetry shows sinus rhythm. No early recurrence of atrial arrhythmias or heavy PAC burden is noted. HEENT: She is normocephalic and atraumatic. NEUROLOGIC: Grossly intact. HEART: Rate is regularly regular with a crisp S1 and S2. LUNGS: Clear to auscultation. ABDOMEN: Obese, soft, nontender. EXTREMITIES: Warm and dry to touch, well perfused without clubbing, cyanosis, or edema. Gait is stable. Bilateral groin sites were stable without evidence of hematoma or complications, and right jugular vein access dressing was removed and no signs of complication there either. CONDITION AT DISCHARGE: Stable. DISCHARGE MEDICATION LIST: Resuming home medications of; 1. Pravastatin 40 mg at bedtime. 2. Metoprolol succinate 50 mg b.i.d. 3. Prinzide 20-12.5 mg half tablet p.o. b.i.d. p.r.n. systolic blood pressure greater than 140. 4. Synthroid 100 mcg daily. 5. Flecainide 100 mg b.i.d. 6. Diltiazem 120 mg at bedtime. 7. Vitamin B daily. 8. Vitamin D daily. 9. Eliquis 5 mg b.i.d. 10. Carafate 1 g before meals and at bedtime x2 weeks. 11. Protonix 40 mg daily x2 weeks. 12. Lasix 40 mg daily p.r.n. fluid retention, to be taken with K-Dur 20 mEq as needed. DISCHARGE INSTRUCTIONS: Follow up in 6 weeks or sooner if symptoms dictate. Take medications as prescribed. Contact [facility] with any postablation concerns. We will continue flecainide at this time and plan to stop at 6-week appointment if no documented recurrences of atrial arrhythmias are seen by her pacemaker check. Job ID: [id number]
--- NOTE | 2020-05-03 18:49 | EKG ---
Test Reason : Blood Pressure : / mmHG Vent. Rate : 066 BPM Atrial Rate : 066 BPM P-R Int : 210 ms QRS Dur : 092 ms QT Int : 436 ms P-R-T Axes : 097 007 035 degrees QTc Int : 457 ms Electronic atrial pacemaker Nonspecific T wave abnormality Abnormal ECG When compared with ECG of 02-MAY-2020 11:14, Electronic atrial pacemaker has replaced Sinus rhythm Nonspecific T wave abnormality no longer evident in Inferior leads Confirmed by RAO DAVIS, SFatuma (4) on 05/03/2020 6:49:04 PM Referred By: TYRA CHEN Confirmed By:DR. Clarence YEH MD
== END 2020-05-03 12:41 | disposition home or self-care (01) ==
LOC: SDC 05:52 → 2NO 06:49
PROVIDERS: ADMIT Specialist; ATTEND Specialist
PROC: 02583ZZ Destruction of Conduction Mechanism, Percutaneous Approach (ICD-10-PCS; principal; 2020-05-02)
PROC: 02K83ZZ Map Conduction Mechanism, Percutaneous Approach (ICD-10-PCS; 2020-05-02)
PROC: 4A023FZ Measurement of Cardiac Rhythm, Percutaneous Approach (ICD-10-PCS; 2020-05-02)
PROC: 4A0234Z Measurement of Cardiac Electrical Activity, Percutaneous Approach (ICD-10-PCS; 2020-05-02)
DX: I48.0 Paroxysmal atrial fibrillation (principal); I48.4 Atypical atrial flutter; I49.5 Sick sinus syndrome; I10 Essential (primary) hypertension; E78.5 Hyperlipidemia, unspecified; E03.9 Hypothyroidism, unspecified; E66.9 Obesity, unspecified; Z68.41 Body mass index [BMI] 40.0-44.9, adult; Z87.891 Personal history of nicotine dependence; Z79.01 Long term (current) use of anticoagulants; Z79.899 Other long term (current) drug therapy; Z91.040 Latex allergy status; Z91.048 Other nonmedicinal substance allergy status; Z95.0 Presence of cardiac pacemaker
CPT/HCPCS: 76942; 85347 ×2; 93005 ×2; 93613; 93623; 93655; 93656; 93662; 96374; C1732; C1759; C1884; G0378 ×2; 93010; J1100; J1644; J1940; J2250; J2405; J2704; J2720; J3010

== ENCOUNTER 2020-07-27 19:00 | Outpatient (CLI) | payer MEDICARE, OTHER | END 2020-07-27 19:01 | disposition home or self-care (01) | LOC: SLEEPLAB 19:00 | PROVIDERS: ATTEND Nurse Practitioner Adult Health | DX: G47.33 Obstructive sleep apnea (adult) (pediatric) (principal); R53.83 Other fatigue; E66.9 Obesity, unspecified; I10 Essential (primary) hypertension; I25.10 Atherosclerotic heart disease of native coronary artery without angina pectoris; G47.00 Insomnia, unspecified; I48.91 Unspecified atrial fibrillation; G47.10 Hypersomnia, unspecified; G47.61 Periodic limb movement disorder; G47.52 REM sleep behavior disorder; Z95.0 Presence of cardiac pacemaker | CPT/HCPCS: 95810 ==

== ENCOUNTER 2020-12-22 19:00 | Outpatient (CLI) | payer MEDICARE, OTHER | END 2020-12-22 19:01 | disposition home or self-care (01) | LOC: SLEEPLAB 19:00 | PROVIDERS: ATTEND Nurse Practitioner Adult Health | DX: G47.33 Obstructive sleep apnea (adult) (pediatric) (principal); R53.83 Other fatigue; R06.83 Snoring; I25.10 Atherosclerotic heart disease of native coronary artery without angina pectoris; I10 Essential (primary) hypertension; I48.91 Unspecified atrial fibrillation; G47.00 Insomnia, unspecified; G47.10 Hypersomnia, unspecified; G47.61 Periodic limb movement disorder; E66.9 Obesity, unspecified; Z68.41 Body mass index [BMI] 40.0-44.9, adult; Z95.0 Presence of cardiac pacemaker | CPT/HCPCS: 95811 ==

== ENCOUNTER 2021-04-27 00:35 | Emergency (ER) | payer MEDICARE, OTHER ==
[2021-04-27 01:57] LABS: #Basophils 0.1 thou/uL (0.0-0.2); #Eosinphils 0.3 thou/uL (0.0-0.7); #Lymphocytes 2.4 thou/uL (1.20-3.40); #Monocytes 0.8 thou/uL (0.11-0.59); #Neutrophils 8.7 thou/uL (1.40-6.50); %Basophils 0.6 % (0.0-1.0); %Eosinophils 2.7 % (0.0-10.0); %Lymphocytes 19.5 % (21.0-51.0); %Monocytes 6.8 % (0.0-10.0); %Neutrophils 70.4 % (42.0-75.0); Mean Corpuscular HGB CONC 33.2 g/dL (32.0-36.0); Mean Corpuscular Volume 87.2 fL (78.0-98.0); Mean Platelet Volume 8.1 fL (7.4-10.4); Platelet Count 294 thou/uL (130-400); RBC Distribution Width 12.8 % (11.5-14.5); White Blood Cell (WBC) Count 12.3 thou/uL (4.8-10.8)
[2021-04-27 02:05] LABS: Bilirubin Negative (Negative); Blood, Urine Negative (Negative); Clarity Clear (Clear); Glucose, Urine (Dipstick) Normal (Negative); Ketone, Urine Negative (Negative); Leukocyte Negative Leu/uL (Negative); Nitrite Negative (Negative); Protein, Urine (Dipstick) Negative (Neg-Trace); Specific Gravity, Urine 1.007 (1.002-1.036); Urobilinogen Normal mg/dL (Less than 2); pH, Urine 6.5 (5.0-9.0)
[2021-04-27 02:19] LABS: ALT (SGPT) 10 U/L (8-55); AST (SGOT) 17 U/L (5-34); Albumin 3.9 g/dL (3.4-4.8); Alkaline Phosphatase 86 U/L (40-110); Anion Gap 12 mmol/L (10-20); BUN (Urea Nitrogen) 13 mg/dL (9.8-20.1); Bilirubin, Total 0.5 mg/dL (0.2-1.2); Calc. Creatinine Clearance 0 mL/min (70-130); Calcium 9.5 mg/dL (7.8-10.44); Carbon Dioxide 29 mmol/L (23-31); Chloride 105 mmol/L (98-107); Globulin 3.2 g/dL (2.4-3.5); Glucose 111 mg/dL (80-115); Magnesium 2.2 mg/dL (1.6-2.6); Potassium 3.6 mmol/L (3.5-5.1); Protein, Total 7.1 g/dL (5.8-8.1); Sodium 142 mmol/L (136-145)
== END 2021-04-27 03:38 | disposition home or self-care (01) ==
LOC: ERS 00:35
DX: R55 Syncope and collapse (principal); I25.10 Atherosclerotic heart disease of native coronary artery without angina pectoris; I10 Essential (primary) hypertension; E03.9 Hypothyroidism, unspecified; I48.91 Unspecified atrial fibrillation; Z87.891 Personal history of nicotine dependence
CPT/HCPCS: 36415; 71045; 80053; 81003; 83735; 84484; 85025; 93005

== ENCOUNTER 2021-05-16 10:41 | Emergency (ER) | payer MEDICARE, OTHER ==
[2021-05-16 11:22] LABS: #Basophils 0.1 thou/uL (0.0-0.2); #Eosinphils 0.2 thou/uL (0.0-0.7); #Lymphocytes 1.6 thou/uL (1.20-3.40); #Monocytes 0.7 thou/uL (0.11-0.59); #Neutrophils 6.9 thou/uL (1.40-6.50); %Basophils 0.6 % (0.0-1.0); %Eosinophils 2.5 % (0.0-10.0); %Lymphocytes 17.1 % (21.0-51.0); %Monocytes 7.3 % (0.0-10.0); %Neutrophils 72.6 % (42.0-75.0); Hemoglobin 13.4 g/dL (12.0-16.0); Mean Corpuscular HGB CONC 33.6 g/dL (32.0-36.0); Mean Corpuscular Hemoglobin 28.4 pg (27.0-31.0); Mean Corpuscular Volume 84.5 fL (78.0-98.0); Mean Platelet Volume 7.9 fL (7.4-10.4); Platelet Count 285 thou/uL (130-400); RBC Distribution Width 12.9 % (11.5-14.5); Red Blood Cell (RBC) Count 4.71 mill/uL (4.20-5.40); White Blood Cell (WBC) Count 9.5 thou/uL (4.8-10.8)
[2021-05-16 11:42] LABS: ALT (SGPT) 11 U/L (8-55); AST (SGOT) 20 U/L (5-34); Alkaline Phosphatase 85 U/L (40-110); Anion Gap 11 mmol/L (10-20); BUN (Urea Nitrogen) 13 mg/dL (9.8-20.1); Bilirubin, Total 0.5 mg/dL (0.2-1.2); Calc. Creatinine Clearance 0 mL/min (70-130); Calcium 9.5 mg/dL (7.8-10.44); Carbon Dioxide 30 mmol/L (23-31); Chloride 103 mmol/L (98-107); Globulin 3.3 g/dL (2.4-3.5); Glucose 87 mg/dL (80-115); Potassium 3.9 mmol/L (3.5-5.1); Protein, Total 7.3 g/dL (5.8-8.1); Sodium 140 mmol/L (136-145)
[2021-05-16 11:44] LABS: CKMB 0.8 ng/mL (0-6.6)
[2021-05-16 12:35] LABS: Lipase 18 U/L (8-78); Magnesium 2.2 mg/dL (1.6-2.6)
== END 2021-05-16 13:16 | disposition home or self-care (01) ==
LOC: ERS 10:41
DX: R00.2 Palpitations (principal); I10 Essential (primary) hypertension; I25.10 Atherosclerotic heart disease of native coronary artery without angina pectoris; I48.91 Unspecified atrial fibrillation; E03.9 Hypothyroidism, unspecified; Z87.891 Personal history of nicotine dependence; Z79.01 Long term (current) use of anticoagulants; Z79.899 Other long term (current) drug therapy
CPT/HCPCS: 36415; 71045; 80053; 82553; 83690; 83735; 83880; 84484; 85025; 93005

== ENCOUNTER 2021-06-12 20:42 | Emergency (ER) | payer MEDICARE, OTHER ==
[2021-06-12 22:04] LABS: #Basophils 0.1 thou/uL (0.0-0.2); #Eosinphils 0.3 thou/uL (0.0-0.7); #Lymphocytes 1.9 thou/uL (1.20-3.40); #Monocytes 0.8 thou/uL (0.11-0.59); #Neutrophils 7.8 thou/uL (1.40-6.50); %Basophils 0.6 % (0.0-1.0); %Eosinophils 2.6 % (0.0-10.0); %Lymphocytes 17.9 % (21.0-51.0); %Monocytes 7.1 % (0.0-10.0); %Neutrophils 71.7 % (42.0-75.0); Hemoglobin 12.5 g/dL (12.0-16.0); Mean Corpuscular HGB CONC 32.2 g/dL (32.0-36.0); Mean Corpuscular Hemoglobin 27.2 pg (27.0-31.0); Mean Corpuscular Volume 84.7 fL (78.0-98.0); Mean Platelet Volume 8.5 fL (7.4-10.4); Platelet Count 279 thou/uL (130-400); RBC Distribution Width 13.2 % (11.5-14.5); Red Blood Cell (RBC) Count 4.61 mill/uL (4.20-5.40); White Blood Cell (WBC) Count 10.9 thou/uL (4.8-10.8)
[2021-06-12 22:24] LABS: ALT (SGPT) 9 U/L (8-55); AST (SGOT) 15 U/L (5-34); Albumin 3.7 g/dL (3.4-4.8); Alkaline Phosphatase 91 U/L (40-110); Anion Gap 12 mmol/L (10-20); BUN (Urea Nitrogen) 13 mg/dL (9.8-20.1); Bilirubin, Total 0.4 mg/dL (0.2-1.2); Calc. Creatinine Clearance 0 mL/min (70-130); Calcium 9.5 mg/dL (7.8-10.44); Carbon Dioxide 26 mmol/L (23-31); Chloride 106 mmol/L (98-107); Globulin 3.7 g/dL (2.4-3.5); Glucose 122 mg/dL (80-115); Potassium 3.6 mmol/L (3.5-5.1); Protein, Total 7.4 g/dL (5.8-8.1); Sodium 140 mmol/L (136-145)
[2021-06-12 22:30] LABS: Bilirubin Negative (Negative); Blood, Urine Negative (Negative); Clarity Clear (Clear); Glucose, Urine (Dipstick) Normal (Negative); Ketone, Urine Negative (Negative); Leukocyte Negative Leu/uL (Negative); Nitrite Negative (Negative); Protein, Urine (Dipstick) Negative (Neg-Trace); Specific Gravity, Urine 1.005 (1.002-1.036); Urobilinogen Normal mg/dL (Less than 2)
[2021-06-12 22:41] LABS: Troponin I Less than 0.010 ng/mL (< 0.028)
== END 2021-06-12 23:45 | disposition home or self-care (01) ==
LOC: ERS 20:42
DX: R55 Syncope and collapse (principal); R29.700 NIHSS score 0; I45.89 Other specified conduction disorders; I49.8 Other specified cardiac arrhythmias; I10 Essential (primary) hypertension; I48.91 Unspecified atrial fibrillation; I25.10 Atherosclerotic heart disease of native coronary artery without angina pectoris; E03.9 Hypothyroidism, unspecified; Z87.891 Personal history of nicotine dependence; Z95.0 Presence of cardiac pacemaker
CPT/HCPCS: 36415; 71045; 80053; 81003; 83880; 84484; 85025; 93005

== ENCOUNTER 2021-09-08 21:14 | Emergency (ER) | payer MEDICARE, OTHER | END 2021-09-08 22:09 | disposition home or self-care (01) | LOC: ERS 21:14 | DX: M79.641 Pain in right hand (principal) | CPT/HCPCS: 99283 ==

== ENCOUNTER 2021-10-07 21:06 | Emergency (ER) | payer MEDICARE, OTHER ==
[2021-10-07 21:34] LABS: #Basophils 0.1 thou/uL (0.0-0.2); #Eosinphils 0.3 thou/uL (0.0-0.7); #Lymphocytes 2.3 thou/uL (1.20-3.40); #Monocytes 0.8 thou/uL (0.11-0.59); #Neutrophils 7.1 thou/uL (1.40-6.50); %Basophils 0.7 % (0.0-1.0); %Eosinophils 2.9 % (0.0-10.0); %Lymphocytes 22.1 % (21.0-51.0); %Monocytes 7.5 % (0.0-10.0); %Neutrophils 66.8 % (42.0-75.0); Hemoglobin 12.1 g/dL (12.0-16.0); Mean Corpuscular HGB CONC 32.4 g/dL (32.0-36.0); Mean Corpuscular Volume 86.5 fL (78.0-98.0); Mean Platelet Volume 7.8 fL (7.4-10.4); Platelet Count 285 thou/uL (130-400); RBC Distribution Width 13.5 % (11.5-14.5); Red Blood Cell (RBC) Count 4.33 mill/uL (4.20-5.40); White Blood Cell (WBC) Count 10.6 thou/uL (4.8-10.8)
[2021-10-07 21:53] LABS: ALT (SGPT) 8 U/L (8-55); AST (SGOT) 18 U/L (5-34); Albumin 3.9 g/dL (3.4-4.8); Alkaline Phosphatase 80 U/L (40-110); Anion Gap 12 mmol/L (10-20); BUN (Urea Nitrogen) 14 mg/dL (9.8-20.1); Bilirubin, Total 0.6 mg/dL (0.2-1.2); Calc. Creatinine Clearance 0 mL/min (70-130); Calcium 8.9 mg/dL (7.8-10.44); Carbon Dioxide 27 mmol/L (23-31); Chloride 106 mmol/L (98-107); Globulin 3.1 g/dL (2.4-3.5); Glucose 102 mg/dL (80-115); Potassium 3.8 mmol/L (3.5-5.1); Sodium 141 mmol/L (136-145)
== END 2021-10-07 22:38 | disposition home or self-care (01) ==
LOC: ERS 21:06
DX: R00.2 Palpitations (principal); I10 Essential (primary) hypertension; I48.91 Unspecified atrial fibrillation; E78.5 Hyperlipidemia, unspecified; E78.00 Pure hypercholesterolemia, unspecified
CPT/HCPCS: 36415; 71045; 80053; 83880; 84484; 85025; 93005

== ENCOUNTER 2022-05-10 03:35 | Emergency (ER) | payer MEDICARE, OTHER ==
[2022-05-10 05:46] LABS: #Basophils 0.1 thou/uL (0.0-0.2); #Eosinphils 0.3 thou/uL (0.0-0.7); #Lymphocytes 2.1 thou/uL (1.20-3.40); #Monocytes 0.7 thou/uL (0.11-0.59); #Neutrophils 7.3 thou/uL (1.40-6.50); %Basophils 0.7 % (0.0-1.0); %Eosinophils 2.5 % (0.0-10.0); %Lymphocytes 20.1 % (21.0-51.0); %Monocytes 6.7 % (0.0-10.0); %Neutrophils 70.1 % (42.0-75.0); Hemoglobin 11.8 g/dL (12.0-16.0); Mean Corpuscular HGB CONC 32.8 g/dL (32.0-36.0); Mean Corpuscular Hemoglobin 27.6 pg (27.0-31.0); Mean Corpuscular Volume 84.3 fl (78.0-98.0); Mean Platelet Volume 9.1 fL (7.4-10.4); Platelet Count 267 10x3/uL (130-400); RBC Distribution Width 13.9 % (11.5-14.5); Red Blood Cell (RBC) Count 4.26 mill/uL (4.20-5.40); White Blood Cell (WBC) Count 10.4 10x3/uL (4.8-10.8)
[2022-05-10 05:47] LABS: ALT (SGPT) 8 U/L (8-55); AST (SGOT) 16 U/L (5-34); Albumin 3.8 g/dL (3.4-4.8); Alkaline Phosphatase 76 U/L (40-110); Anion Gap 9 mmol/L (10-20); BUN (Urea Nitrogen) 9 mg/dL (9.8-20.1); Bilirubin, Total 0.6 mg/dL (0.2-1.2); Calc. Creatinine Clearance 0 mL/min (70-130); Calcium 9.2 mg/dL (7.8-10.44); Carbon Dioxide 27 mmol/L (23-31); Chloride 107 mmol/L (98-107); Estimated GFR 71; Globulin 3.2 g/dL (2.4-3.5); Glucose 116 mg/dL (80-115); Potassium 3.4 mmol/L (3.5-5.1); Sodium 140 mmol/L (136-145)
== END 2022-05-10 06:36 | disposition home or self-care (01) ==
LOC: ERS 03:35
DX: I10 Essential (primary) hypertension (principal); E78.00 Pure hypercholesterolemia, unspecified
CPT/HCPCS: 36415; 80053; 85025; 93005

== ENCOUNTER 2022-06-18 14:19 | Emergency (ER) | payer MEDICARE, OTHER ==
[2022-06-18 14:58] LABS: #Basophils 0.1 thou/uL (0.0-0.2); #Eosinphils 0.3 thou/uL (0.0-0.7); #Lymphocytes 2.3 thou/uL (1.20-3.40); #Monocytes 0.9 thou/uL (0.11-0.59); #Neutrophils 14.2 thou/uL (1.40-6.50); %Basophils 0.5 % (0.0-1.0); %Eosinophils 1.7 % (0.0-10.0); %Lymphocytes 12.8 % (21.0-51.0); Hemoglobin 12.4 g/dL (12.0-16.0); Mean Corpuscular HGB CONC 33.1 g/dL (32.0-36.0); Mean Corpuscular Hemoglobin 27.5 pg (27.0-31.0); Mean Corpuscular Volume 83.2 fl (78.0-98.0); Mean Platelet Volume 8.8 fL (7.4-10.4); Platelet Count 294 10x3/uL (130-400); Red Blood Cell (RBC) Count 4.51 mill/uL (4.20-5.40); White Blood Cell (WBC) Count 17.8 10x3/uL (4.8-10.8)
[2022-06-18 15:26] LABS: ALT (SGPT) 11 U/L (8-55); AST (SGOT) 22 U/L (5-34); Albumin 3.9 g/dL (3.4-4.8); Alkaline Phosphatase 89 U/L (40-110); Anion Gap 13 mmol/L (10-20); BUN (Urea Nitrogen) 13 mg/dL (9.8-20.1); Bilirubin, Total 0.6 mg/dL (0.2-1.2); Calc. Creatinine Clearance 0 mL/min (70-130); Calcium 9.7 mg/dL (7.8-10.44); Carbon Dioxide 24 mmol/L (23-31); Chloride 106 mmol/L (98-107); Estimated GFR 65; Glucose 85 mg/dL (80-115); Potassium 4.1 mmol/L (3.5-5.1); Protein, Total 7.9 g/dL (5.8-8.1); Sodium 139 mmol/L (136-145)
[2022-06-18 15:29] LABS: Bacteria/HPF 4+ HPF (None Seen); Bilirubin Negative (Negative); Blood, Urine Negative (Negative); Clarity Turbid (Clear); Glucose, Urine (Dipstick) Normal (Negative); Ketone, Urine Negative (Negative); Leukocyte 250 Leu/uL (Negative); Nitrite Negative (Negative); Protein, Urine (Dipstick) Negative (Neg-Trace); RBC/HPF 0-3 HPF (0-3); Specific Gravity, Urine 1.008 (1.002-1.036); Squamous Epithelial 21-50 HPF (0-3); Urobilinogen Normal mg/dL (Less than 2); WBC/HPF 0-3 HPF (0-3)
== END 2022-06-18 16:14 | disposition home or self-care (01) ==
LOC: ERS 14:19
DX: R00.2 Palpitations (principal); D72.829 Elevated white blood cell count, unspecified; E78.00 Pure hypercholesterolemia, unspecified; I10 Essential (primary) hypertension; Z79.01 Long term (current) use of anticoagulants; Z79.899 Other long term (current) drug therapy
CPT/HCPCS: 71045; 80053; 81003; 81015; 84443; 84484; 85025; 93005

== ENCOUNTER 2022-06-20 18:21 | Emergency (ER) | payer MEDICARE, OTHER ==
[2022-06-20 19:07] LABS: #Basophils 0.1 thou/uL (0.0-0.2); #Eosinphils 0.3 thou/uL (0.0-0.7); #Lymphocytes 2.4 thou/uL (1.20-3.40); #Monocytes 0.9 thou/uL (0.11-0.59); #Neutrophils 14.9 thou/uL (1.40-6.50); %Basophils 0.4 % (0.0-1.0); %Eosinophils 1.8 % (0.0-10.0); %Lymphocytes 12.7 % (21.0-51.0); %Monocytes 4.6 % (0.0-10.0); %Neutrophils 80.6 % (42.0-75.0); Hemoglobin 12.6 g/dL (12.0-16.0); Mean Corpuscular HGB CONC 32.4 g/dL (32.0-36.0); Mean Corpuscular Hemoglobin 27.1 pg (27.0-31.0); Mean Corpuscular Volume 83.7 fl (78.0-98.0); Mean Platelet Volume 8.9 fL (7.4-10.4); Platelet Count 301 10x3/uL (130-400); Red Blood Cell (RBC) Count 4.65 mill/uL (4.20-5.40); White Blood Cell (WBC) Count 18.5 10x3/uL (4.8-10.8)
[2022-06-20 19:37] LABS: ALT (SGPT) 10 U/L (8-55); AST (SGOT) 18 U/L (5-34); Albumin 3.8 g/dL (3.4-4.8); Alkaline Phosphatase 93 U/L (40-110); Anion Gap 13 mmol/L (10-20); BUN (Urea Nitrogen) 14 mg/dL (9.8-20.1); Bilirubin, Total 0.4 mg/dL (0.2-1.2); Calc. Creatinine Clearance 0 mL/min (70-130); Calcium 9.6 mg/dL (7.8-10.44); Carbon Dioxide 26 mmol/L (23-31); Chloride 104 mmol/L (98-107); Estimated GFR 63; Globulin 3.8 g/dL (2.4-3.5); Glucose 125 mg/dL (80-115); Lipase 19 U/L (8-78); Potassium 3.8 mmol/L (3.5-5.1); Protein, Total 7.6 g/dL (5.8-8.1); Sodium 139 mmol/L (136-145)
== END 2022-06-20 21:01 | disposition home or self-care (01) ==
LOC: ERS 18:21
DX: R00.2 Palpitations (principal); I47.1 Supraventricular tachycardia; I48.91 Unspecified atrial fibrillation; I10 Essential (primary) hypertension; E78.5 Hyperlipidemia, unspecified; Z79.01 Long term (current) use of anticoagulants; Z95.0 Presence of cardiac pacemaker; Z79.899 Other long term (current) drug therapy
CPT/HCPCS: 36415; 71045; 80053; 83690; 84484; 85025; 93005

== ENCOUNTER 2022-10-30 20:23 | Emergency (ER) | payer MEDICARE, OTHER ==
[2022-10-30] MEDS ORDERED: Ondansetron PF 4 MG/2 ML Vial ONE (22:44)
[2022-10-30] MEDS ORDERED: Acetaminophen 500 MG TAB ONE (22:44)
[2022-10-30 22:53] LABS: #Eosinphils 0.1 thou/uL (0.0-0.7); #Monocytes 0.5 thou/uL (0.11-0.59); %Basophils 0.5 % (0.0-1.0); %Eosinophils 0.9 % (0.0-10.0); %Monocytes 6.2 % (0.0-10.0); %Neutrophils 81.2 % (42.0-75.0); Mean Corpuscular HGB CONC 32.4 g/dL (32.0-36.0); Mean Corpuscular Hemoglobin 26.5 pg (27.0-31.0); Mean Corpuscular Volume 81.7 fl (78.0-98.0); Mean Platelet Volume 10.7 fL (7.4-10.4); Platelet Count 264 10x3/uL (130-400); RBC Distribution Width 14.9 % (11.5-14.5); Red Blood Cell (RBC) Count 4.53 mill/uL (4.20-5.40); White Blood Cell (WBC) Count 8.6 10x3/uL (4.8-10.8)
[2022-10-30 23:15] LABS: ALT (SGPT) 9 U/L (8-55); AST (SGOT) 20 U/L (5-34); Albumin 3.7 g/dL (3.4-4.8); Alkaline Phosphatase 76 U/L (40-110); Anion Gap 14 mmol/L (10-20); BUN (Urea Nitrogen) 15 mg/dL (9.8-20.1); Bilirubin, Total 0.9 mg/dL (0.2-1.2); Calc. Creatinine Clearance 0 mL/min (70-130); Calcium 8.9 mg/dL (7.8-10.44); Carbon Dioxide 21 mmol/L (23-31); Chloride 105 mmol/L (98-107); Estimated GFR 70; Globulin 3.5 g/dL (2.4-3.5); Glucose 105 mg/dL (80-115); Lipase 12 U/L (8-78); Protein, Total 7.2 g/dL (5.8-8.1); Sodium 136 mmol/L (136-145)
[2022-10-31 00:33] LABS: Bacteria/HPF None Seen HPF (None Seen); Bilirubin Negative (Negative); Blood, Urine Negative (Negative); CAUTI Indications for Culture Fever or rigors; Clarity Clear (Clear); Glucose, Urine (Dipstick) Normal (Negative); Ketone, Urine Negative (Negative); Leukocyte Negative Leu/uL (Negative); Nitrite Negative (Negative); Protein, Urine (Dipstick) 20 mg/dL (Neg-Trace); RBC/HPF 0-3 HPF (0-3); Specific Gravity, Urine 1.032 (1.002-1.036); Squamous Epithelial 0-3 HPF (0-3); Urobilinogen Normal mg/dL (Less than 2); WBC/HPF 0-3 HPF (0-3); pH, Urine 5.5 (5.0-9.0)
[2022-10-31 00:34] LABS: Urine Culture Reflex No No
== END 2022-10-31 00:51 | disposition home or self-care (01) ==
LOC: ERS 20:23
DX: R11.0 Nausea (principal); R19.7 Diarrhea, unspecified; E78.5 Hyperlipidemia, unspecified; I10 Essential (primary) hypertension; I48.91 Unspecified atrial fibrillation; Z87.891 Personal history of nicotine dependence; Z79.82 Long term (current) use of aspirin; Z79.899 Other long term (current) drug therapy; Z79.01 Long term (current) use of anticoagulants
CPT/HCPCS: 80053; 81001; 83690; 85025; 96361; 96374; J2405

== ENCOUNTER 2023-02-25 07:49 | Emergency (ER) | payer MEDICARE, OTHER ==
[2023-02-25 08:20] LABS: #Basophils 0.1 thou/uL (0.0-0.2); #Eosinphils 0.2 thou/uL (0.0-0.7); #Monocytes 0.8 thou/uL (0.11-0.59); #Neutrophils 3.9 thou/uL (1.40-6.50); %Eosinophils 2.9 % (0.0-10.0); %Lymphocytes 16.1 % (21.0-51.0); %Monocytes 13.1 % (0.0-10.0); %Neutrophils 66.7 % (42.0-75.0); Hematocrit 38.8 % (36.0-47.0); Hemoglobin 12.2 g/dL (12.0-16.0); Mean Corpuscular HGB CONC 31.4 g/dL (32.0-36.0); Mean Corpuscular Hemoglobin 25.6 pg (27.0-31.0); Mean Corpuscular Volume 81.3 fl (78.0-98.0); Mean Platelet Volume 10.2 fL (7.4-10.4); Platelet Count 231 10x3/uL (130-400); RBC Distribution Width 15.4 % (11.5-14.5); Red Blood Cell (RBC) Count 4.77 mill/uL (4.20-5.40); White Blood Cell (WBC) Count 5.9 10x3/uL (4.8-10.8)
[2023-02-25] MEDS ORDERED: Dicyclomine 20 MG TAB ONE ×2 (08:32→08:36)
[2023-02-25] MEDS ORDERED: Ondansetron PF 4 MG/2 ML Vial ONE ×3 (08:32→10:52)
[2023-02-25] MEDS ORDERED: Ketorolac Tromethamine 30 MG/ML VIAL ONE ×2 (08:32→08:36)
[2023-02-25 08:44] LABS: ALT (SGPT) 13 U/L (8-55); AST (SGOT) 22 U/L (5-34); Albumin 4.3 g/dL (3.4-4.8); Alkaline Phosphatase 92 U/L (40-110); Anion Gap 12 mmol/L (10-20); BUN (Urea Nitrogen) 10 mg/dL (9.8-20.1); Bilirubin, Total 0.6 mg/dL (0.2-1.2); Calc. Creatinine Clearance 0 mL/min (70-130); Calcium 9.4 mg/dL (7.8-10.44); Carbon Dioxide 26 mmol/L (23-31); Chloride 104 mmol/L (98-107); Estimated GFR 64; Glucose 99 mg/dL (80-115); Lipase 9 U/L (8-78); Potassium 3.2 mmol/L (3.5-5.1); Protein, Total 7.3 g/dL (5.8-8.1); Sodium 139 mmol/L (136-145)
[2023-02-25 09:01] LABS: Bilirubin Negative (Negative); Blood, Urine Trace (Negative); CAUTI Indications for Culture Pelvic or flank pain; Clarity Turbid (Clear); Glucose, Urine (Dipstick) Normal (Negative); Ketone, Urine Negative (Negative); Leukocyte 500 Leu/uL (Negative); Nitrite Negative (Negative); Protein, Urine (Dipstick) 30 mg/dL (Neg-Trace); Specific Gravity, Urine 1.032 (1.002-1.036); WBC/HPF 21-50 HPF (0-3); pH, Urine 5.5 (5.0-9.0)
[2023-02-25 09:08] LABS: Bacteria/HPF 3+ HPF (None Seen); Squamous Epithelial Greater than 50 HPF (0-3)
[2023-02-25 09:09] LABS: Urine Culture Reflex Yes Yes
[2023-02-25] MEDS ORDERED: Iopamidol-370 76% 500 ML MDV (1 ML CHARGE) ONE (09:50)
== END 2023-02-25 11:01 | disposition home or self-care (01) ==
LOC: ERS 07:49
DX: N10 Acute pyelonephritis (principal); E78.5 Hyperlipidemia, unspecified; I48.91 Unspecified atrial fibrillation; I10 Essential (primary) hypertension; Z87.891 Personal history of nicotine dependence
CPT/HCPCS: 74177; 80053; 81001; 83690; 85025; 87086; 96361; 96374; 96375; 96376; J1885; J2405; Q9967

== ENCOUNTER 2023-05-14 02:24 | Emergency (ER) | payer MEDICARE, OTHER ==
[2023-05-14 03:08] LABS: #Basophils 0.1 thou/uL (0.0-0.2); #Eosinphils 0.5 thou/uL (0.0-0.7); #Monocytes 0.7 thou/uL (0.11-0.59); #Neutrophils 6.4 thou/uL (1.40-6.50); %Eosinophils 4.6 % (0.0-10.0); %Lymphocytes 23.8 % (21.0-51.0); %Monocytes 6.8 % (0.0-10.0); %Neutrophils 63.6 % (42.0-75.0); Hematocrit 38.2 % (36.0-47.0); Hemoglobin 12.1 g/dL (12.0-16.0); Mean Corpuscular HGB CONC 31.7 g/dL (32.0-36.0); Mean Corpuscular Hemoglobin 25.7 pg (27.0-31.0); Mean Corpuscular Volume 81.1 fl (78.0-98.0); Mean Platelet Volume 10.6 fL (7.4-10.4); Platelet Count 303 10x3/uL (130-400); RBC Distribution Width 15.6 % (11.5-14.5); Red Blood Cell (RBC) Count 4.71 mill/uL (4.20-5.40); White Blood Cell (WBC) Count 10.1 10x3/uL (4.8-10.8)
[2023-05-14 03:34] LABS: ALT (SGPT) 19 U/L (8-55); AST (SGOT) 28 U/L (5-34); Albumin 3.9 g/dL (3.4-4.8); Alkaline Phosphatase 110 U/L (40-110); Anion Gap 13 mmol/L (10-20); BUN (Urea Nitrogen) 12 mg/dL (9.8-20.1); Bilirubin, Total 0.7 mg/dL (0.2-1.2); Calc. Creatinine Clearance 0 mL/min (70-130); Calcium 9.5 mg/dL (7.8-10.44); Carbon Dioxide 26 mmol/L (23-31); Chloride 105 mmol/L (98-107); Estimated GFR 67; Globulin 3.7 g/dL (2.4-3.5); Glucose 111 mg/dL (80-115); Potassium 3.9 mmol/L (3.5-5.1); Protein, Total 7.6 g/dL (5.8-8.1); Sodium 140 mmol/L (136-145)
[2023-05-14 03:36] LABS: Troponin I Less than 0.010 ng/mL (< 0.028)
== END 2023-05-14 04:01 | disposition home or self-care (01) ==
LOC: ERS 02:24
DX: I48.91 Unspecified atrial fibrillation (principal); I10 Essential (primary) hypertension; E78.5 Hyperlipidemia, unspecified; Z79.01 Long term (current) use of anticoagulants; Z79.82 Long term (current) use of aspirin; Z86.73 Personal history of transient ischemic attack (TIA), and cerebral infarction without residual deficits; Z87.891 Personal history of nicotine dependence; Z79.899 Other long term (current) drug therapy
CPT/HCPCS: 36415; 71045; 80053; 83880; 84484; 85025; 93005

== ENCOUNTER 2023-07-17 08:22 | Observation (INO) | payer MEDICARE, OTHER ==
[2023-07-17] MEDS ORDERED: Acetaminophen 500 MG TAB ONE (10:05)
[2023-07-17 10:39] LABS: #Basophils 0.1 thou/uL (0.0-0.2); #Eosinphils 0.3 thou/uL (0.0-0.7); #Monocytes 0.8 thou/uL (0.11-0.59); #Neutrophils 6.7 thou/uL (1.40-6.50); %Basophils 0.9 % (0.0-1.0); %Eosinophils 3.2 % (0.0-10.0); %Lymphocytes 18.9 % (21.0-51.0); %Monocytes 8.1 % (0.0-10.0); %Neutrophils 68.6 % (42.0-75.0); Hematocrit 37.7 % (36.0-47.0); Hemoglobin 11.7 g/dL (12.0-16.0); Mean Corpuscular Hemoglobin 25.4 pg (27.0-31.0); Mean Platelet Volume 11.1 fL (7.4-10.4); Platelet Count 311 10x3/uL (130-400); White Blood Cell (WBC) Count 9.8 10x3/uL (4.8-10.8)
[2023-07-17] MEDS ORDERED: Acetaminophen 325 MG TAB PO PRN (10:41)
[2023-07-17] MEDS ORDERED: Ondansetron PF 4 MG/2 ML Vial IVP PRN (10:41)
[2023-07-17] MEDS ORDERED: Dextrose 50% Abboject 50 ML SYRINGE SLOW IVP PRN (10:41)
[2023-07-17] MEDS ORDERED: Dextrose 5% in Water 1,000 ML IV PRN (10:41)
[2023-07-17] MEDS ORDERED: Glucagon 1 MG/ML KIT IM PRN (10:41)
[2023-07-17] MEDS ORDERED: hydrALAZINE 20 MG/ML VIAL SLOW IVP PRN (10:41)
[2023-07-17] MEDS ORDERED: Ondansetron ODT 4 MG TAB PO PRN (10:41)
[2023-07-17] MEDS ORDERED: Acetaminophen/Codeine 30-300mg Tablet PO PRN (10:41)
[2023-07-17] MEDS ORDERED: hydrALAZINE 20 MG/ML VIAL ONE (10:52)
[2023-07-17 10:54] LABS: INR-International Normal Ratio 1.3; PTT 32.9 sec (22.9-36.1); Prothrombin Time 16.2 sec (12.0-14.7)
[2023-07-17 10:58] LABS: ALT (SGPT) 14 U/L (8-55); AST (SGOT) 22 U/L (5-34); Albumin 3.8 g/dL (3.4-4.8); Alkaline Phosphatase 98 U/L (40-110); Anion Gap 14 mmol/L (10-20); BUN (Urea Nitrogen) 14 mg/dL (9.8-20.1); Bilirubin, Total 0.7 mg/dL (0.2-1.2); Calc. Creatinine Clearance 0 mL/min (70-130); Calcium 9.1 mg/dL (7.8-10.44); Carbon Dioxide 26 mmol/L (23-31); Chloride 105 mmol/L (98-107); Estimated GFR 64; Globulin 3.5 g/dL (2.4-3.5); Glucose 85 mg/dL (80-115); Potassium 3.6 mmol/L (3.5-5.1); Protein, Total 7.3 g/dL (5.8-8.1); Sodium 141 mmol/L (136-145)
[2023-07-17 11:33] VITALS: BMI 40.2
[2023-07-17 14:47] VITALS: BP 170/88; TEMP 97.6
[2023-07-17] MEDS ORDERED: TETANUS, DIPHTHERIA TOX,ADULT (TDVAX) 0.5 ML VIAL IM ONE (23:59)
== END 2023-07-17 16:09 | disposition home or self-care (01) ==
LOC: ERS 08:22 → ERHOLD 10:49
PROVIDERS: ADMIT Surgery; ATTEND Surgery
DX: I10 Essential (primary) hypertension (principal); I48.91 Unspecified atrial fibrillation; E78.5 Hyperlipidemia, unspecified; G47.30 Sleep apnea, unspecified; Z79.01 Long term (current) use of anticoagulants; Z79.82 Long term (current) use of aspirin; Z79.899 Other long term (current) drug therapy; Z91.048 Other nonmedicinal substance allergy status; Z91.040 Latex allergy status; Z87.891 Personal history of nicotine dependence; W01.0XXA Fall on same level from slipping, tripping and stumbling without subsequent striking against object, initial encounter; Z98.51 Tubal ligation status; Z90.89 Acquired absence of other organs; Z95.0 Presence of cardiac pacemaker
CPT/HCPCS: 70450; 72100; 73564; 80053; 82962; 85025; 85610; 85730; 93005; 99285; G0378; 36416; J0360

== ENCOUNTER 2023-11-05 10:33 | Emergency (ER) | payer MEDICARE, OTHER ==
[2023-11-05] MEDS ORDERED: Acetaminophen 325 MG TAB ONE (11:49)
== END 2023-11-05 13:02 | disposition home or self-care (01) ==
LOC: ERS 10:33
DX: M25.552 Pain in left hip (principal); I10 Essential (primary) hypertension; I48.91 Unspecified atrial fibrillation; E78.5 Hyperlipidemia, unspecified; G47.00 Insomnia, unspecified; Z87.891 Personal history of nicotine dependence; Z86.73 Personal history of transient ischemic attack (TIA), and cerebral infarction without residual deficits; Z79.01 Long term (current) use of anticoagulants; Z79.82 Long term (current) use of aspirin; Z79.899 Other long term (current) drug therapy; Z95.0 Presence of cardiac pacemaker

== ENCOUNTER 2023-11-15 16:45 | Emergency (ER) | payer MEDICARE, OTHER ==
[~2023-11-15 16:45] MED LIST: Iopamidol-370 76% 500 ML MDV (1 ML CHARGE) ONE
[2023-11-15 17:52] LABS: Bacteria/HPF None Seen HPF (None Seen); Bilirubin Negative (Negative); Blood, Urine Negative (Negative); CAUTI Indications for Culture Dysuria,urgency,freq; Clarity Clear (Clear); Glucose, Urine (Dipstick) Normal (Negative); Ketone, Urine Negative (Negative); Leukocyte Negative Leu/uL (Negative); Nitrite Negative (Negative); Protein, Urine (Dipstick) Negative (Neg-Trace); RBC/HPF 0-3 HPF (0-3); Specific Gravity, Urine 1.024 (1.002-1.036); Squamous Epithelial 0-3 HPF (0-3); WBC/HPF 0-3 HPF (0-3)
[2023-11-15 17:57] LABS: Urine Culture Reflex No No
[2023-11-15 18:34] LABS: #Basophils 0.11 10x3/uL (0.0-0.2); %Basophils 0.8 % (0.0-1.0); %Eosinophils 3.1 % (0.0-10.0); %Lymphocytes 15.1 % (21.0-51.0); %Monocytes 6.6 % (0.0-10.0); Hematocrit 37.5 % (36.0-47.0); Hemoglobin 11.7 g/dL (12.0-16.0); Mean Corpuscular HGB CONC 31.2 g/dL (32.0-36.0); Mean Corpuscular Hemoglobin 26.4 pg (27.0-31.0); Mean Corpuscular Volume 84.7 fL (78.0-98.0); Mean Platelet Volume 10.3 fL (7.4-10.4); Platelet Count 299 10x3/uL (130-400); RBC Distribution Width 15.9 % (11.5-14.5); Red Blood Cell (RBC) Count 4.43 mill/uL (4.20-5.40)
[2023-11-15 18:53] LABS: ALT (SGPT) 10 U/L (8-55); AST (SGOT) 17 U/L (5-34); Albumin 3.5 g/dL (3.4-4.8); Alkaline Phosphatase 86 U/L (40-110); Anion Gap 12 mmol/L (10-20); BUN (Urea Nitrogen) 14 mg/dL (9.8-20.1); Bilirubin, Total 0.6 mg/dL (0.2-1.2); Calc. Creatinine Clearance 0 mL/min (70-130); Calcium 9.2 mg/dL (7.8-10.44); Carbon Dioxide 23 mmol/L (23-31); Chloride 108 mmol/L (98-107); Estimated GFR 79; Globulin 3.4 g/dL (2.4-3.5); Glucose 96 mg/dL (80-115); Lipase 15 U/L (8-78); Magnesium 2.1 mg/dL (1.6-2.6); Potassium 3.9 mmol/L (3.5-5.1); Protein, Total 6.9 g/dL (5.8-8.1); Sodium 139 mmol/L (136-145)
[2023-11-15 22:06] LABS: Troponin I Less than 0.010 ng/mL (< 0.028)
== END 2023-11-15 21:26 | disposition home or self-care (01) ==
LOC: ERS 16:45
DX: R10.30 Lower abdominal pain, unspecified (principal); R11.0 Nausea; I48.91 Unspecified atrial fibrillation; E78.5 Hyperlipidemia, unspecified; Z87.891 Personal history of nicotine dependence; Z55.6 Problems related to health literacy; Z79.899 Other long term (current) drug therapy; Z79.01 Long term (current) use of anticoagulants; Z86.73 Personal history of transient ischemic attack (TIA), and cerebral infarction without residual deficits; Z95.0 Presence of cardiac pacemaker
CPT/HCPCS: 36415; 74177; 80053; 81001; 83690; 83735; 84484; 85025; 93005; Q9967

== ENCOUNTER 2023-11-19 14:10 | Emergency (ER) | payer MEDICARE, OTHER ==
[2023-11-19 15:00] LABS: Bacteria/HPF None Seen HPF (None Seen); Bilirubin Negative (Negative); Blood, Urine Negative (Negative); CAUTI Indications for Culture Pelvic or flank pain; Clarity Clear (Clear); Glucose, Urine (Dipstick) Normal (Negative); Ketone, Urine Negative (Negative); Leukocyte Negative Leu/uL (Negative); Nitrite Negative (Negative); Protein, Urine (Dipstick) Negative (Neg-Trace); RBC/HPF 0-3 HPF (0-3); Specific Gravity, Urine 1.013 (1.002-1.036); Squamous Epithelial None Seen HPF (0-3); WBC/HPF 0-3 HPF (0-3)
[2023-11-19 15:04] LABS: Urine Culture Reflex No No
[2023-11-19 15:29] LABS: #Basophils 0.09 10x3/uL (0.0-0.2); %Basophils 0.9 % (0.0-1.0); %Eosinophils 4.7 % (0.0-10.0); %Lymphocytes 17.8 % (21.0-51.0); %Monocytes 7.5 % (0.0-10.0); %Neutrophils 68.8 % (42.0-75.0); Hematocrit 37.4 % (36.0-47.0); Hemoglobin 11.8 g/dL (12.0-16.0); Mean Corpuscular HGB CONC 31.6 g/dL (32.0-36.0); Mean Corpuscular Hemoglobin 26.5 pg (27.0-31.0); Mean Corpuscular Volume 83.9 fL (78.0-98.0); Mean Platelet Volume 10.6 fL (7.4-10.4); Platelet Count 317 10x3/uL (130-400); RBC Distribution Width 15.9 % (11.5-14.5); Red Blood Cell (RBC) Count 4.46 mill/uL (4.20-5.40)
[2023-11-19 15:50] LABS: ALT (SGPT) 12 U/L (8-55); AST (SGOT) 19 U/L (5-34); Albumin 3.7 g/dL (3.4-4.8); Alkaline Phosphatase 89 U/L (40-110); Anion Gap 14 mmol/L (10-20); BUN (Urea Nitrogen) 11 mg/dL (9.8-20.1); Bilirubin, Total 0.9 mg/dL (0.2-1.2); Calc. Creatinine Clearance 0 mL/min (70-130); Calcium 9.4 mg/dL (7.8-10.44); Carbon Dioxide 28 mmol/L (23-31); Chloride 104 mmol/L (98-107); Estimated GFR 68; Globulin 3.4 g/dL (2.4-3.5); Glucose 100 mg/dL (83-110); Lipase 13 U/L (8-78); Potassium 3.6 mmol/L (3.5-5.1); Protein, Total 7.1 g/dL (5.8-8.1); Sodium 142 mmol/L (136-145)
[2023-11-19] MEDS ORDERED: Ketorolac Tromethamine 30 MG (1 mL) VIAL ONE (16:03)
[2023-11-19] MEDS ORDERED: Ondansetron PF 4 MG/2 ML Vial ONE (16:04)
== END 2023-11-19 16:55 | disposition home or self-care (01) ==
LOC: ERS 14:10
DX: K43.9 Ventral hernia without obstruction or gangrene (principal); I10 Essential (primary) hypertension; Z87.891 Personal history of nicotine dependence
CPT/HCPCS: 80053; 81001; 83690; 85025; J1885; J2405; 36415; 96374; 96375

== ENCOUNTER 2024-01-21 13:29 | Outpatient (CLI) | payer MEDICARE, OTHER, MEDICAID | END 2024-01-21 13:30 | disposition home or self-care (01) | LOC: SCSRAD 13:29 | PROVIDERS: ATTEND Family Medicine | DX: R05.1 Acute cough (principal); I51.7 Cardiomegaly; K44.9 Diaphragmatic hernia without obstruction or gangrene; R09.89 Other specified symptoms and signs involving the circulatory and respiratory systems | CPT/HCPCS: 71046 ==

== ENCOUNTER 2024-02-07 05:50 | Day surgery (SDC) | payer MEDICARE, OTHER, MEDICAID ==
[2024-01-31 10:01] VITALS: BMI 41.1
[2024-02-07] MEDS ORDERED: PHENYLEPHRINE-NS 100 MCG/ML 10 ML SYRINGE ONE (07:16)
[2024-02-07] MEDS ORDERED: ePHEDrine Sulfate 50 MG/10 ML VIAL ONE (07:16)
[2024-02-07] MEDS ORDERED: Lidocaine 1% PF 5 ML VIAL ONE (07:50)
[2024-02-07] MEDS ORDERED: PROPOFOL 200 MG/20 ML VIAL ONE (07:50)
== END 2024-02-07 09:10 | disposition home or self-care (01) ==
LOC: SDC 05:50
PROVIDERS: ATTEND Internal Medicine Cardiovascular Disease
PROC: B246ZZ4 Ultrasonography of Right and Left Heart, Transesophageal (ICD-10-PCS; principal; 2024-02-07)
DX: I48.0 Paroxysmal atrial fibrillation (principal); E03.9 Hypothyroidism, unspecified; I25.10 Atherosclerotic heart disease of native coronary artery without angina pectoris; Z91.040 Latex allergy status; Z91.048 Other nonmedicinal substance allergy status; Z95.818 Presence of other cardiac implants and grafts; Z79.82 Long term (current) use of aspirin; Z79.899 Other long term (current) drug therapy; Z79.02 Long term (current) use of antithrombotics/antiplatelets; Z79.890 Hormone replacement therapy
CPT/HCPCS: 93312; J2704

== ENCOUNTER 2024-12-11 15:01 | Emergency (ER) | payer MEDICARE, OTHER | END 2024-12-11 17:51 | disposition home or self-care (01) | LOC: ERS 15:01 | DX: S46.911A Strain of unspecified muscle, fascia and tendon at shoulder and upper arm level, right arm, initial encounter (principal); S80.02XA Contusion of left knee, initial encounter; S80.01XA Contusion of right knee, initial encounter; I10 Essential (primary) hypertension; I48.91 Unspecified atrial fibrillation; Z95.0 Presence of cardiac pacemaker; Z87.891 Personal history of nicotine dependence; W01.10XA Fall on same level from slipping, tripping and stumbling with subsequent striking against unspecified object, initial encounter; Y93.01 Activity, walking, marching and hiking; Y92.510 Bank as the place of occurrence of the external cause | CPT/HCPCS: 70450; 72125; 73030; 73564 ×2; 96372; 99283; J2270; Q0162 ==